=== PATIENT | male | born 1955 | race Caucasian/White ===

== ENCOUNTER → 2018-04-02 15:44 | Outpatient (CLI) | payer OTHER, SELFPAY ==
--- NOTE | 2018-04-02 16:40 | RAD_ITS ---
STUDY: X-RAY CHEST REASON FOR EXAM: Male, 63 years old. Open heart surgery 20 years ago. Shortness of breath and chest pain. TECHNIQUE: PA and lateral views of the chest. COMPARISON: August 15, 2015. FINDINGS: The lungs are mildly hypoexpanded. There is no focal mass or infiltrate. There is no demonstrated pleural abnormality. Sternal cerclage wires are present from a prior sternotomy. The heart appears normal in size. Normal mediastinum and luis. Normal visualized pulmonary arteries. Normal visualized aortic arch and descending thoracic aorta. There are diffuse degenerative changes of the visualized thoracic spine. There is a healed fracture of the left mid clavicle not seen on the prior chest film. There is no demonstrated abnormality of the visualized soft tissue structures of the upper abdomen. RAD/Chest PA and Lateral IMPRESSION: 1. Evidence of prior median sternotomy. There is no acute cardiopulmonary changes. 2. Healed left clavicular fracture. Electronically Signed: Christ Villagomez DO at 23:54 EST Tel [phone], Service support ,
[2018-04-02 16:42] LABS: BNP,B-Type NATRIURETIC PEPTIDE 22.2 pg/mL (0-100)
[2018-04-02 16:51] LABS: ALB/GLOB Ratio 0.8 RATIO (0.9-2.4); AST(SGOT) 28 U/L (15-37); Alanine Aminotransfer ALT/SGPT 31 U/L (16-61); Albumin, Serum 3.2 g/dL (3.2-5.0); Alkaline Phosphatase 116 U/L (45-117); Anion Gap 10 (5-15); BUN 7 mg/dL (7-18); BUN/Creat Ratio 8.4 RATIO (10-20); Calcium,Total 8.4 mg/dL (8.5-10.1); Chloride 112 mmol/L (98-107); Creatinine, Serum 0.84 mg/dL (0.70-1.30); EST Glomerular Filtration Rate 99 mL/min (>60); Est Glom Filt Rate - Afr Amer 120 mL/min (>60); Globulin 4.1 g/dL (2.2-4.2); Glucose 127 mg/dL (74-106); Potassium 3.7 mmol/L (3.5-5.1); Protein, Total 7.3 g/dL (6.4-8.2); Sodium Level 143 mmol/L (136-145)
== END ==
LOC: POLAB3 15:45 → RAD 16:03
PROVIDERS: Referring Provider Physician Assistant Medical; Visit Provider Physician Assistant Medical
DX: R06.09 Other forms of dyspnea (principal); R60.9 Edema, unspecified
CPT/HCPCS: 36415; 71046; 80053; 83880

== ENCOUNTER → 2018-04-14 16:49 | Outpatient (CLI) | payer OTHER, SELFPAY ==
[2018-04-14 15:48] VITALS: BMI 40.4
--- NOTE | 2018-04-14 17:00 | RAD_ITS ---
STUDY: X-RAY - LEFT RADIUS AND ULNA REASON FOR EXAM: Male, 63 years old. Bilateral forearm pain. TECHNIQUE: 2 view(s) of the forearm. COMPARISON: None. FINDINGS: There is no demonstrated soft tissue swelling. 2 numerous to count metal surgical clips are seen in the anterior soft tissues of the forearm. Normal visualized radius. Mild periarticular spurring of the coronoid process of the ulna. The mid to distal ulna are unremarkable. There is no demonstrated destructive osseous lesion or acute fracture. RAD/Forearm 2 Views IMPRESSION: 1. No acute osseous abnormality of the left radius and ulna. There is mild periventricular spurring of the coronoid process of the ulna. 2. Numerous metal surgical clips in the anterior soft tissues of the forearm. Electronically Signed: Wiley Hylton MD at 19:57 EST , Service support ,
--- NOTE | 2018-04-14 17:00 | RAD_ITS ---
STUDY: X-RAY - RIGHT RADIUS AND ULNA REASON FOR EXAM: Male, 63 years old. Bilateral forearm pain. TECHNIQUE: 2 view(s) of the forearm. COMPARISON: None. FINDINGS: There is no demonstrated soft tissue swelling. Normal visualized radius. Normal visualized ulna. There is no demonstrated destructive osseous lesion or acute fracture. RAD/Forearm 2 Views IMPRESSION: Normal x-ray examination of the right radius and ulna. Electronically Signed: Wiley Hylton MD at 19:56 EST , Service support ,
[2018-04-14 17:54] LABS: Anion Gap 10 (5-15); BUN 8 mg/dL (7-18); BUN/Creat Ratio 7.4 RATIO (10-20); Calcium,Total 8.4 mg/dL (8.5-10.1); Chloride 109 mmol/L (98-107); Creatinine, Serum 1.08 mg/dL (0.70-1.30); EST Glomerular Filtration Rate 74 mL/min (>60); Est Glom Filt Rate - Afr Amer 89 mL/min (>60); Glucose 225 mg/dL (74-106); Potassium 3.9 mmol/L (3.5-5.1); Sodium Level 142 mmol/L (136-145)
== END ==
LOC: POLAB3 16:50 → RAD 16:58
PROVIDERS: Referring Provider Physician Assistant Medical; Visit Provider Physician Assistant Medical
DX: I50.30 Unspecified diastolic (congestive) heart failure (principal); E78.5 Hyperlipidemia, unspecified; I10 Essential (primary) hypertension; I25.10 Atherosclerotic heart disease of native coronary artery without angina pectoris; M79.632 Pain in left forearm; M79.631 Pain in right forearm
CPT/HCPCS: 36415; 73090; 80048

== ENCOUNTER → 2018-06-19 14:41 | Outpatient (CLI) | payer MEDICARE, SELFPAY ==
[2018-04-14 15:48] VITALS: BMI 40.4
[2018-06-19 15:39] LABS: Hemoglobin A1c 6.8 % (4.2-6.3)
== END ==
PROVIDERS: Referring Provider Podiatrist Foot & Ankle Surgery; Visit Provider Podiatrist Foot & Ankle Surgery
DX: E11.621 Type 2 diabetes mellitus with foot ulcer (principal)
CPT/HCPCS: 36415; 83036

== ENCOUNTER → 2018-07-15 15:44 | Outpatient (CLI) | payer OTHER, SELFPAY ==
[2018-07-15 13:38] VITALS: BMI 40.4
[2018-07-15 17:49] LABS: Anion Gap 11 (5-15); BUN 8 mg/dL (7-18); BUN/Creat Ratio 8.4 RATIO (10-20); Calcium,Total 8.8 mg/dL (8.5-10.1); Chloride 111 mmol/L (98-107); Creatinine, Serum 0.95 mg/dL (0.70-1.30); EST Glomerular Filtration Rate 85 mL/min (>60); Est Glom Filt Rate - Afr Amer 103 mL/min (>60); Glucose 142 mg/dL (74-106); Potassium 4.1 mmol/L (3.5-5.1); Sodium Level 142 mmol/L (136-145)
== END ==
PROVIDERS: Visit Provider Physician Assistant Medical
DX: I10 Essential (primary) hypertension (principal); I25.10 Atherosclerotic heart disease of native coronary artery without angina pectoris; I50.30 Unspecified diastolic (congestive) heart failure
CPT/HCPCS: 36415; 80048

== ENCOUNTER → 2018-07-24 14:57 | Outpatient (CLI) | payer OTHER, SELFPAY ==
[2018-07-15 13:38] VITALS: BMI 40.4
== END ==
PROVIDERS: Family Provider Family Medicine; PCP Family Medicine; Visit Provider Family Medicine
DX: L97.322 Non-pressure chronic ulcer of left ankle with fat layer exposed (principal); L03.119 Cellulitis of unspecified part of limb; L02.619 Cutaneous abscess of unspecified foot
CPT/HCPCS: 87070; 87075; 87077; 87186; 87205

== ENCOUNTER → 2018-11-06 10:09 | Outpatient (CLI) | payer OTHER, SELFPAY ==
[2018-07-15 13:38] VITALS: BMI 40.4
[2018-11-06 12:07] LABS: Hemoglobin 14.6 g/dl (13.0-16.5); Mean Corpuscular Volume 85.3 fL (80-94); Mean Platelet Vol. 10.9 fl (6.2-12.0); Platelet Count 171 K/mm3 (150-450); RBC Distribution Width CV 13.7 % (11.6-14.6); Red Blood Count 5.04 M/mm3 (4.6-6.2); White Blood Count 8.8 K/mm3 (4.4-11.0)
[2018-11-06 12:19] LABS: Scan Indicated on CBC? Y/N NO
[2018-11-06 12:36] LABS: AST(SGOT) 17 U/L (15-37); Alanine Aminotransfer ALT/SGPT 20 U/L (16-61); Albumin, Serum 3.2 g/dL (3.2-5.0); Alkaline Phosphatase 102 U/L (45-117); Anion Gap 10 (5-15); BUN 7 mg/dL (7-18); BUN/Creat Ratio 8.7 RATIO (10-20); Bilirubin, Direct 0.07 mg/dL (0.00-0.30); Calcium,Total 8.7 mg/dL (8.5-10.1); Chloride 113 mmol/L (98-107); EST Glomerular Filtration Rate 104 mL/min (>60); Est Glom Filt Rate - Afr Amer 126 mL/min (>60); Globulin 4.1 g/dL (2.2-4.2); Glucose 98 mg/dL (74-106); Potassium 3.5 mmol/L (3.5-5.1); Protein, Total 7.3 g/dL (6.4-8.2); Sodium Level 146 mmol/L (136-145)
== END ==
PROVIDERS: Family Provider Family Medicine; PCP Family Medicine
DX: F32.9 Major depressive disorder, single episode, unspecified (principal); G43.711 Chronic migraine without aura, intractable, with status migrainosus; Z92.29 Personal history of other drug therapy
CPT/HCPCS: 36415; 80048; 80076; 85027

== ENCOUNTER → 2018-11-26 17:32 | Outpatient (CLI) | payer OTHER, SELFPAY ==
[2018-07-15 13:38] VITALS: BMI 40.4
== END ==
PROVIDERS: Family Provider Family Medicine; PCP Family Medicine; Referring Provider Family Medicine; Visit Provider Family Medicine
DX: E11.621 Type 2 diabetes mellitus with foot ulcer (principal); L97.529 Non-pressure chronic ulcer of other part of left foot with unspecified severity
CPT/HCPCS: 87070; 87075; 87205

== ENCOUNTER → 2019-05-13 13:10 | Outpatient (CLI) | payer OTHER, SELFPAY ==
[2019-03-11 15:47] VITALS: BMI 36.6
[2019-05-13 14:32] LABS: AST(SGOT) 24 U/L (15-37); Alanine Aminotransfer ALT/SGPT 26 U/L (16-61); Albumin, Serum 3.6 g/dL (3.2-5.0); Alkaline Phosphatase 110 U/L (45-117); Bilirubin, Direct 0.11 mg/dL (0.00-0.30); Cholesterol 140 mg/dL (200); Globulin 3.9 g/dL (2.2-4.2); High Density Lipoprotein 39 mg/dL; Protein, Total 7.5 g/dL (6.4-8.2); Thyroid Stim Hormone (TSH) 2.08 uIU/mL (0.358-3.74); Triglycerides 395 mg/dL; Very Low Density Lipoprotein 79 mg/dL (5-40)
== END ==
PROVIDERS: Family Provider Family Medicine; PCP Family Medicine
DX: I25.10 Atherosclerotic heart disease of native coronary artery without angina pectoris (principal); F32.9 Major depressive disorder, single episode, unspecified; F51.01 Primary insomnia; Z86.73 Personal history of transient ischemic attack (TIA), and cerebral infarction without residual deficits; Z92.29 Personal history of other drug therapy; F29 Unspecified psychosis not due to a substance or known physiological condition
CPT/HCPCS: 36415; 80061; 80076; 84443

== ENCOUNTER → 2019-12-09 14:14 | Outpatient (CLI) | payer OTHER, SELFPAY ==
[2019-03-11 15:47] VITALS: BMI 36.6
[2019-12-09 17:13] LABS: Absolute Lymphocyte Count 2.81 X10^3/uL (0.83-4.51); Absolute Neutrophil Count 5.8 X10^3/uL (2.0-7.7); Basophil# 0.05 X10^3/uL; Basophil% 0.5 % (0-1); Eosinophils% 2.1 % (0-5); Hematocrit 44.2 % (40-54); Hemoglobin 15.1 g/dL (13.0-16.5); Lymphocyte # 2.81 X10^3/ul (4.0); Lymphocyte % 29.4 % (19-41); Mean Corp Hgb Conc 34.2 g/dL (32-36); Mean Corpuscular Hgb 30.1 pg (27.0-32.0); Mean Corpuscular Volume 88.2 fL (80-94); Mean Platelet Vol. 11.4 fl (6.2-12.0); Monocyte# 0.68 X10^3/uL; Monocyte% 7.1 % (0-10); NRBC Flagged by Analyzer 0 % (0-5); Neutrophil # 5.79 X10^3/uL (2.7-7.7); Neutrophil % 60.6 % (47-70); POSITIVE COUNT YES; Platelet Count 153 K/mm3 (150-450); RBC Distribution Width SD 41.6 fl (35.1-43.9); Red Blood Count 5.01 M/mm3 (4.6-6.2); White Blood Count 9.6 K/mm3 (4.4-11.0)
[2019-12-09 17:23] LABS: Differential Indicated SCAN CRITERIA MET
[2019-12-09 17:47] LABS: ALB/GLOB Ratio 0.9 RATIO (0.9-2.4); AST(SGOT) 19 U/L (15-37); Alanine Aminotransfer ALT/SGPT 26 U/L (16-61); Albumin, Serum 3.4 g/dL (3.2-5.0); Alkaline Phosphatase 99 U/L (45-117); Anion Gap 7 (5-15); BUN 8 mg/dL (7-18); BUN/Creat Ratio 10.5 RATIO (10-20); Calcium,Total 8.5 mg/dL (8.5-10.1); Chloride 114 mmol/L (98-107); Creatinine, Serum 0.76 mg/dL (0.70-1.30); EST Glomerular Filtration Rate 110 mL/min (>60); Est Glom Filt Rate - Afr Amer 133 mL/min (>60); Globulin 3.9 g/dL (2.2-4.2); Glucose 82 mg/dL (74-106); Potassium 4.2 mmol/L (3.5-5.1); Protein, Total 7.3 g/dL (6.4-8.2); Sodium Level 141 mmol/L (136-145)
[2019-12-09 18:15] LABS: Platelet Estimate ADEQUATE (ADEQ)
[2019-12-09 18:16] LABS: Red Cell Morphology NORM C+C NORMAL (NORM C&C)
== END ==
PROVIDERS: PCP Family Medicine; Visit Provider Family Medicine
DX: Z51.81 Encounter for therapeutic drug level monitoring (principal); E11.9 Type 2 diabetes mellitus without complications
CPT/HCPCS: 36415; 80053; 85025

== ENCOUNTER → 2020-02-23 10:52 | Outpatient (CLI) | payer OTHER, SELFPAY ==
[2019-12-17 15:42] VITALS: BMI 34.5
== END ==
PROVIDERS: PCP Family Medicine; Visit Provider Family Medicine
DX: L02.414 Cutaneous abscess of left upper limb (principal)
CPT/HCPCS: 87070; 87205

== ENCOUNTER → 2020-05-11 13:28 | Outpatient (CLI) | payer OTHER, SELFPAY ==
[2019-12-17 15:42] VITALS: BMI 34.5
== END ==
PROVIDERS: PCP Family Medicine; Visit Provider Family Medicine
DX: L02.414 Cutaneous abscess of left upper limb (principal)
CPT/HCPCS: 87070; 87075; 87077; 87186; 87205

== ENCOUNTER 2020-07-19 11:00 | Outpatient (RCR) | payer OTHER, SELFPAY ==
[2020-06-10 13:25] VITALS: BMI 35.9
[2020-06-28 09:15] VITALS: BP 134/71; PULSE 97; RESP 18; TEMP 36.3; BMI 34.4
--- NOTE | 2020-06-28 10:05 | PCM.WC.HP ---
(1) COPD (chronic obstructive pulmonary disease) Status: Chronic Code(s): J44.9 - Chronic obstructive pulmonary disease, unspecified (2) History of CVA (cerebrovascular accident) Status: Chronic Code(s): Z86.73 - Personal history of transient ischemic attack (TIA), and cerebral infarction without residual deficits (3) Degenerative disc disease Status: Chronic (4) GERD (gastroesophageal reflux disease) Status: Chronic Code(s): K21.9 - Gastro-esophageal reflux disease without esophagitis (5) Diabetes mellitus Status: Chronic Qualifiers: Diabetes mellitus type: type 2 Code(s): E11.9 - Type 2 diabetes mellitus without complications (6) Wound, open, elbow Status: Chronic Qualifiers: Encounter type: initial encounter Laterality: left Qualified Code(s): S51.002A - Unspecified open wound of left elbow, initial encounter Code(s): S51.009A - Unspecified open wound of unspecified elbow, initial encounter (7) Open wnd elbow-complic Status: Chronic Qualifiers: Encounter type: initial encounter Laterality: left Qualified Code(s): S51.002A - Unspecified open wound of left elbow, initial encounter Code(s): S51.009A - Unspecified open wound of unspecified elbow, initial encounter (8) Chronic diastolic heart failure Status: Chronic Code(s): I50.32 - Chronic diastolic (congestive) heart failure (9) Pure hypercholesterolemia Status: Chronic Code(s): E78.00 - Pure hypercholesterolemia, unspecified (10) Essential hypertension Status: Chronic Code(s): I10 - Essential (primary) hypertension (11) Presence of stent in coronary artery Status: Chronic Code(s): Z95.5 - Presence of coronary angioplasty implant and graft Comment: PTCA /Stent of prox and mid LAD 08/11/02 (12) Aortocoronary bypass status Status: Chronic Code(s): Z95.1 - Presence of aortocoronary bypass graft Comment: CABG x3- BULL to LAD and to DX of LAD, Lt Radial to RCA 10/06/1998 @ [facility] (13) Atherosclerotic heart disease of [place] coronary artery without angina pectoris Status: Chronic Qualifiers: [place] vs. transplanted heart: [place] heart Code(s): I25.10 - Atherosclerotic heart disease of [place] coronary artery without angina pectoris Comment: CABG x3- BULL to LAD and to DX of LAD, Lt Radial to RCA 10/06/1998 @ [facility]; PTCA /Stent of prox and mid LAD 08/11/02 History of Present Illness Date of Service: 06/28/20 Chief Complaint: Left elbow wound History of Wound: This is a 65-year-old male who presents with a chronic wound on his left posterior elbow. Currently the patient, it has been present since approximately October 2019. He is uncertain as to the etiology or source of the wound, indicating that it may have started as an insect bite, and was initially noted to have the appearance of a blister. He has been treated by other physicians, including Dr. Raoul Ortez, who referred the patient, and Dr. Epperson, the patient's primary care physician. Apparently there have been episodes of redness and swelling, for which the patient has been placed on several courses of oral antibiotics, including Cipro and others. The patient has not certain of the attics which he has taken in the past. He is currently treating the area with soap and water. He has previously been advised to use Silvadene topically, as well as antibiotic ointment. Despite all such measures, the patient's left elbow wound has failed to heal, prompting referral to our wound care facility. Patient has multiple pre-existing medical problems, including hypertension, coronary artery disease, diabetes mellitus, etc., which are listed below. Past Medical History Past Medical History: Chronic Problems (Last Reviewed 06/10/20 @ 13:[address] Raoul Ortez MD) COPD (chronic obstructive pulmonary disease) (Chronic) History of CVA (cerebrovascular accident) (Chronic) Degenerative disc disease (Chronic) GERD (gastroesophageal reflux disease) (Chronic) Diabetes mellitus (Chronic) Wound, open, elbow (Chronic) Open wnd elbow-complic (Chronic) Chronic diastolic heart failure (Chronic) Pure hypercholesterolemia (Chronic) Essential hypertension (Chronic) Presence of stent in coronary artery (Chronic ~08/11/02) PTCA /Stent of prox and mid LAD 08/11/02 Aortocoronary bypass status (Chronic ~1998) CABG x3- BULL to LAD and to DX of LAD, Lt Radial to RCA 10/06/1998 @ [facility] Atherosclerotic heart disease of [place] coronary artery without angina pectoris (Chronic) CABG x3- BULL to LAD and to DX of LAD, Lt Radial to RCA 10/06/1998 @ [facility]; PTCA /Stent of prox and mid LAD 08/11/02 Past Medical History: Patient has a history of chronic diastolic heart failure, hyperlipidemia, hypertension, coronary artery disease, chronic obstructive pulmonary disease, cerebrovascular accident, degenerative disc disease, gastroesophageal reflux disease, and diabetes mellitus. Surgical History: - - The patient underwent coronary artery bypass surgery in 1998. Three coronary artery stents were placed in 2002. Patient has history of cholecystectomy and hernia repair. Allergies/Adverse Reactions: Allergies clindamycin Adverse Reaction (Unknown, Verified 06/10/20 13:26) Unknown doxepin Adverse Reaction (Verified 06/10/20 13:26) Nausea/Vom/Diarrhea guanfacine Adverse Reaction (Verified 06/10/20 13:) Nausea/Vom/Diarrhea Penicillins Adverse Reaction (Verified 06/10/20 13:) Hives Home Medications: Ambulatory Orders Medication Instructions Recorded Duloxetine Hcl [Cymbalta] 60 mg PO BID 08/15/15 Hydromorphone HCl [Dilaudid] 4 mg PO Q6H PRN PRN 08/15/15 Lorazepam [Ativan] 1 mg PO TID PRN PRN 08/15/15 Multivitamins,Ther W-Minerals 1 tab PO DAILY 08/15/15 [Multivitamin With Minerals ([facility])] Niacin [Niacin ER] 500 mg PO QHS 08/15/15 Omeprazole [Prilosec] 20 mg PO DAILY 08/15/15 aspirin 81 mg tablet,delayed 81 mg PO QDAY 06/24/17 release folic acid 1 mg tablet 1 mg PO QDAY 06/24/17 pregabalin 100 mg capsule 100 mg PO BID 06/24/17 quetiapine 100 mg tablet 200 mg PO QHS tab 06/24/17 vitamin B complex 1 tab PO QDAY 06/24/17 melatonin 3 mg tablet 9 mg PO HS PRN tab 02/27/18 topiramate 50 mg tablet 300 mg PO BID tab 02/27/18 oxybutynin chloride 5 mg tablet 15 mg PO QHS tab 07/15/18 erenumab-aooe 70 mg/mL 140 mg SC QMONTH 30 Days #2 ea 03/11/19 subcutaneous auto-injector clopidogrel 75 mg tablet 75 mg PO DAILY #90 tab 07/23/19 metoprolol succinate 50 mg 50 mg PO QDAY #90 tab 07/23/19 tablet,extended release 24 hr potassium chloride 10 mEq 40 meq PO BID #240 cap 07/30/19 capsule,extended release pravastatin 80 mg tablet 40 mg PO DAILY #45 tab 08/12/19 nitroglycerin 0.4 mg sublingual 0.4 mg SUBLINGUAL Q5M PRN #25 tab 12/17/19 tablet Temazepam 15 mg PO QHS PRN PRN 06/28/20 - Family History Paternal Family History: Family History (Last Reviewed 06/10/20 @ 13:[address] Raoul Ortez MD) Father Heart disease Maternal Family History: Family History (Last Reviewed 06/10/20 @ 13:[address] Raoul Ortez MD) Father Heart disease - - The patient's mother at the age of 63 with a history of brain cancer Social History: The patient is , and lives with his . He denies use of alcohol and tobacco products. 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 Lives: Spouse/ Significant Other Smoking Status: Never smoker Tobacco Use: Non-smoker Alcohol: None Drugs: None Review of Systems Constitutional: Denies: Chills, Fever, Weight Change Eyes: Denies: Pain, Vision Change HEENT: Denies: Difficulty Hearing, Difficulty Swallowing, Sinus Congestion Cardiovascular: Denies: Chest Pain, Palpitations Respiratory: Denies: Cough, Shortness of Breath Gastrointestinal: Denies: Diarrhea, Nausea, Vomiting Genitourinary: Denies: Dysuria, Hematuria Endocrine: Denies: Heat/ Cold Intolerance, Polydipsia, Polyuria Hematologic/ Lymphatic: Denies: Easy Bruising, Easy Bleeding - Physical Exam Vital Signs Temp Pulse Resp BP 97.3 F L 97 18 134/71 H 06/28/20 09:15 06/28/20 09:15 06/28/20 09:15 06/28/20 09:15 General: Alert, Oriented x3, Cooperative, No apparent distress, Well developed, Well nourished HEENT: Atraumatic, PERRLA, EOMI, Normocephalic Oral: Moist Mucosa Neck: No JVD Lungs: Normal air movement Abdomen: Non-Distended Extremities: No clubbing, No cyanosis, No edema, No Calf Tenderness, - Addt'l Wound Findings: A small wound is noted on the posterior aspect of the patient's left elbow. It is relatively small in size. The external opening measures approximately 2 mm in diameter. It is approximately 2 mm in depth. There is very minimal undermining. Surrounding skin is somewhat thickened. There is no drainage evident at this time. There is no sign of infection or cellulitis. There is a small amount of bioburden. Skin: No rashes Wound Measurements and Assessment WC - Nurse 1 - General Ulcer Measurement Start: 06/28/20 09:15 Freq: Status: Active Protocol: Activity Type Activity Date Activity User E-Sign Co-Sign Detail Recorded Client Recorded Date Recorded By Document 06/28/20 09:15 MW [id number] 06/28/20 09:27 MW 06/28/20 09:15 Wound Center Nurse 1 [Ulcer Assessment] #1 left elbow -Combined with other wound No -Current Size (cm) - Length 0.3 -Current Size (cm) - Width 0.3 -Current Size (cm) - Depth 0.4 -Total Square Cm 0.09 -Date of Last Picture (Recall this 06/28/20 field) -Photo Taken Yes -Epithelialization None Present -Tunneling No -Undermining/Tunneling No -Circular Undermining No -Exudate Amt Medium -Exudate Type Serosanguineous -Wound Margin Thickened -Granulation Amt Small (1-33%) -Granulation Quality Fishtail -Slough/Fibrin Yes -Necrosis Amt Small (1-33%) -Necrotic Tissue Type Adherent Slough -Structure Exposed N/A -Texture (Kiana-wound Skin Appearance) Assessed, Localized Edema -Moisture (Kiana-wound Skin Appearance No Abnormality, ) Assessed -Color (Kiana-wound Skin Appearance) Assessed, Erythema -Temperature (Kiana-wound Skin No Abnormality Appearance) (Pt Warm) -Tenderness on Palpation (Kiana-wound Yes Skin Appearance) -Ulcer Cleansing Rinsed/ Irrigated with Saline -Foul Odor after Cleansing No -Anesthetic Used 4% Lidocaine Solution [Edema Assessment] -Lower Limb Edema Present No Musculoskeletal: No Muscle Wasting Neurological: Cranial nerves II-XII grossly intact, Neuro grossly intact Psych/Mental Status: Appropriate, - - Flat affect is noted, Alert and oriented to time, place, person, mood and affect Debridement Note Laterality: Left - Posterior elbow Type of Debridement: Excisional debridement Anesthesia Used: 5% Lidocaine Gel Depth: Down to and including healthy tissue, in the subcutaneous layer Percentage of wound debrided: 100 Instrument Used: 3mm curette Tissue Removed: Bioburden Severity: Fat Layer Exposed Amount of bleeding with debridement: Mild Bleeding Controlled with: Compression and gauze Patient tolerated procedure well Assessment/Plan Assessment: This is a 65-year-old male who presents with a chronic wound on the left posterior elbow. It has been present for more than 6 months. Patient has multiple pre-existing medical problems, which are detailed elsewhere within this document. Plan: We are to obtain routine diagnostic studies, including a CBC, comprehensive metabolic profile, hemoglobin A1c, and a serum prealbumin. These laboratory studies will reveal whether the patient has underlying systemic factors with active wound healing. An x-ray of the left elbow will also be obtained, to assess the possible involvement of underlying structures. This is not highly suspected, however. Patient has been advised to implement offloading measures, to avoid pressure and friction to the area involved. We are to initiate care with packing of the wound using Nu Gauze. The patient and his are to be instructed in the appropriate means of packing, which will be performed on a daily basis. The wound cavity is extremely small, and measures have been described to facilitate the gauze packing remaining in place, and in contact with all portions of the wound cavity. The importance of this measure has been discussed with the patient and his . Patient is to return in 1 week for reassessment. It is anticipated that serial mechanical debridements will be of benefit in the management of this chronic, nonhealing wound. Influenza vaccine was not administered today. The patient is not a smoker. The patient weighs 240 pounds. He stands 5 feet 10 inches tall. His BMI is 34.4, which places him in an obese class I category. Weight loss has been recommended, in collaboration with his primary care physician has been advised. Total time: 55 minutes.
--- NOTE | 2020-06-28 10:33 | RAD_ITS ---
STUDY: X-RAY - LEFT ELBOW REASON FOR EXAM: Male, 65 years old. Non healing wound to posterior-lateral elbow -- since November TECHNIQUE: 4 view(s) of the elbow. COMPARISON: None. FINDINGS: Normal visualized humerus, radius and ulna. Normal radiocapitellar and ulnotrochlear articulations. Multiple surgical clips are seen in the soft tissues along the anterior aspect of the proximal forearm. RAD/Elbow min 3 Views IMPRESSION: Normal x-ray examination of the elbow. Electronically Signed: Garfield Oliver MD at 11:15 EST , Service support ,
[2020-06-28 11:22] LABS: Absolute Lymphocyte Count 4.65 X10^3/uL (0.83-4.51); Absolute Neutrophil Count 5.6 X10^3/uL (2.0-7.7); Basophil# 0.05 X10^3/uL; Basophil% 0.4 % (0-1); Eosinophil# 0.29 X10^3/uL; Eosinophils% 2.5 % (0-5); Hematocrit 49.2 % (40-54); Hemoglobin 16.3 g/dL (13.0-16.5); Lymphocyte # 4.65 X10^3/ul (4.0); Mean Corp Hgb Conc 33.1 g/dL (32-36); Mean Corpuscular Hgb 29.7 pg (27.0-32.0); Mean Corpuscular Volume 89.8 fL (80-94); Mean Platelet Vol. 10.9 fl (6.2-12.0); Monocyte% 8.6 % (0-10); NRBC Flagged by Analyzer 0 % (0-5); Neutrophil % 48.2 % (47-70); Platelet Count 183 K/mm3 (150-450); RBC Distribution Width CV 13.1 % (11.6-14.6); RBC Distribution Width SD 43.1 fl (35.1-43.9); Red Blood Count 5.48 M/mm3 (4.6-6.2); White Blood Count 11.6 K/mm3 (4.4-11.0)
[2020-06-28 11:39] LABS: Hemoglobin A1c 5.2 % (3.8-5.6)
[2020-06-28 12:02] LABS: ALB/GLOB Ratio 0.9 RATIO (0.9-2.4); AST(SGOT) 16 U/L (15-37); Alanine Aminotransfer ALT/SGPT 23 U/L (16-61); Albumin, Serum 3.5 g/dL (3.2-5.0); Alkaline Phosphatase 126 U/L (45-117); Anion Gap 10 (5-15); BUN 6 mg/dL (7-18); BUN/Creat Ratio 6.2 RATIO (10-20); Calcium,Total 8.9 mg/dL (8.5-10.1); Chloride 113 mmol/L (98-107); Creatinine, Serum 0.98 mg/dL (0.70-1.30); EST Glomerular Filtration Rate 83 mL/min (>60); Est Glom Filt Rate - Afr Amer 100 mL/min (>60); Estimated Creatinine Clearance 79.66 ml/min; Globulin 4.1 g/dL (2.2-4.2); Glucose 103 mg/dL (74-106); Potassium 3.4 mmol/L (3.5-5.1); Prealbumin 30.6 mg/dL (20.0-40.0); Protein, Total 7.6 g/dL (6.4-8.2); Sodium Level 143 mmol/L (136-145)
[2020-07-05 11:49] VITALS: BP 141/85; PULSE 78; RESP 18; TEMP 36; BMI 34.4
--- NOTE | 2020-07-05 12:39 | PCM.WC.HP ---
(1) COPD (chronic obstructive pulmonary disease) Status: Chronic Code(s): J44.9 - Chronic obstructive pulmonary disease, unspecified (2) History of CVA (cerebrovascular accident) Status: Chronic Code(s): Z86.73 - Personal history of transient ischemic attack (TIA), and cerebral infarction without residual deficits (3) Degenerative disc disease Status: Chronic (4) GERD (gastroesophageal reflux disease) Status: Chronic Code(s): K21.9 - Gastro-esophageal reflux disease without esophagitis (5) Diabetes mellitus Status: Chronic Qualifiers: Diabetes mellitus type: type 2 Code(s): E11.9 - Type 2 diabetes mellitus without complications (6) Wound, open, elbow Status: Chronic Qualifiers: Encounter type: subsequent encounter Laterality: left Qualified Code(s): S51.002D - Unspecified open wound of left elbow, subsequent encounter Code(s): S51.009A - Unspecified open wound of unspecified elbow, initial encounter (7) Open wnd elbow-complic Status: Chronic Qualifiers: Encounter type: subsequent encounter Laterality: left Qualified Code(s): S51.002D - Unspecified open wound of left elbow, subsequent encounter Code(s): S51.009A - Unspecified open wound of unspecified elbow, initial encounter (8) Chronic diastolic heart failure Status: Chronic Code(s): I50.32 - Chronic diastolic (congestive) heart failure (9) Pure hypercholesterolemia Status: Chronic Code(s): E78.00 - Pure hypercholesterolemia, unspecified (10) Essential hypertension Status: Chronic Code(s): I10 - Essential (primary) hypertension (11) Presence of stent in coronary artery Status: Chronic Code(s): Z95.5 - Presence of coronary angioplasty implant and graft Comment: PTCA /Stent of prox and mid LAD 08/11/02 (12) Aortocoronary bypass status Status: Chronic Code(s): Z95.1 - Presence of aortocoronary bypass graft Comment: CABG x3- BULL to LAD and to DX of LAD, Lt Radial to RCA 10/06/1998 @ [facility] (13) Atherosclerotic heart disease of [place] coronary artery without angina pectoris Status: Chronic Qualifiers: [place]igh[place] vs. transplanted heart: [place] heart Code(s): I25.10 - Atherosclerotic heart disease of [place] coronary artery without angina pectoris Comment: CABG x3- BULL to LAD and to DX of LAD, Lt Radial to RCA 10/06/1998 @ [facility]; PTCA /Stent of prox and mid LAD 08/11/02 History of Present Illness Date of Service: 07/05/20 Chief Complaint: Left elbow wound History of Wound: This is a 65-year-old male who presented with a chronic wound on his left posterior elbow. It has been present since approximately October 2019. He is uncertain as to the etiology or source of the wound, indicating that it may have started as an insect bite, and was initially noted to have the appearance of a blister. He has been treated by other physicians, including Dr. Raoul Ortez, who referred the patient, and Dr. Epperson, the patient's primary care physician. Apparently there have been episodes of redness and swelling, for which the patient has been placed on several courses of oral antibiotics, including Cipro and others. The patient has not certain of the attics which he has taken in the past. He is currently treating the area with soap and water. He has previously been advised to use Silvadene topically, as well as antibiotic ointment. Despite all such measures, the patient's left elbow wound has failed to heal, prompting referral to our wound care facility. The patient has multiple pre-existing medical problems, including hypertension, coronary artery disease, diabetes mellitus, etc., which are listed below. Past Medical History Past Medical History: Chronic Problems (Last Reviewed 06/10/20 @ 13:[address] Raoul Ortez MD) COPD (chronic obstructive pulmonary disease) (Chronic) History of CVA (cerebrovascular accident) (Chronic) Degenerative disc disease (Chronic) GERD (gastroesophageal reflux disease) (Chronic) Diabetes mellitus (Chronic) Wound, open, elbow (Chronic) Open wnd elbow-complic (Chronic) Chronic diastolic heart failure (Chronic) Pure hypercholesterolemia (Chronic) Essential hypertension (Chronic) Presence of stent in coronary artery (Chronic ~08/11/02) PTCA /Stent of prox and mid LAD 08/11/02 Aortocoronary bypass status (Chronic ~1998) CABG x3- BULL to LAD and to DX of LAD, Lt Radial to RCA 10/06/1998 @ [facility] Atherosclerotic heart disease of [place] coronary artery without angina pectoris (Chronic) CABG x3- BULL to LAD and to DX of LAD, Lt Radial to RCA 10/06/1998 @ [facility]; PTCA /Stent of prox and mid LAD 08/11/02 Surgical History: - - The patient underwent coronary artery bypass surgery in 1998. Three coronary artery stents were placed in 2002. Patient has history of cholecystectomy and hernia repair. Allergies/Adverse Reactions: Allergies clindamycin Adverse Reaction (Unknown, Verified 06/10/20 13:26) Unknown doxepin Adverse Reaction (Verified 06/10/20 13:26) Nausea/Vom/Diarrhea guanfacine Adverse Reaction (Verified 06/10/20 13:26) Nausea/Vom/Diarrhea Penicillins Adverse Reaction (Verified 06/10/20 13:26) Hives Home Medications: Ambulatory Orders Medication Instructions Recorded Duloxetine Hcl [Cymbalta] 60 mg PO BID 08/15/15 Hydromorphone HCl [Dilaudid] 4 mg PO Q6H PRN PRN 08/15/15 Lorazepam [Ativan] 1 mg PO TID PRN PRN 08/15/15 Multivitamins,Ther W-Minerals 1 tab PO DAILY 08/15/15 [Multivitamin With Minerals ([facility])] Niacin [Niacin ER] 500 mg PO QHS 08/15/15 Omeprazole [Prilosec] 20 mg PO DAILY 08/15/15 aspirin 81 mg tablet,delayed 81 mg PO QDAY 06/24/17 release folic acid 1 mg tablet 1 mg PO QDAY 06/24/17 pregabalin 100 mg capsule 100 mg PO BID 06/24/17 quetiapine 100 mg tablet 200 mg PO QHS tab 06/24/17 vitamin B complex 1 tab PO QDAY 06/24/17 melatonin 3 mg tablet 9 mg PO HS PRN tab 02/27/18 topiramate 50 mg tablet 300 mg PO BID tab 02/27/18 oxybutynin chloride 5 mg tablet 15 mg PO QHS tab 07/15/18 erenumab-aooe 70 mg/mL 140 mg SC QMONTH 30 Days #2 ea 03/11/19 subcutaneous auto-injector clopidogrel 75 mg tablet 75 mg PO DAILY #90 tab 07/23/19 metoprolol succinate 50 mg 50 mg PO QDAY #90 tab 07/23/19 tablet,extended release 24 hr potassium chloride 10 mEq 40 meq PO BID #240 cap 07/30/19 capsule,extended release pravastatin 80 mg tablet 40 mg PO DAILY #45 tab 08/12/19 nitroglycerin 0.4 mg sublingual 0.4 mg SUBLINGUAL Q5M PRN #25 tab 12/17/19 tablet Temazepam 15 mg PO QHS PRN PRN 06/28/20 - Family History Paternal Family History: Family History (Last Reviewed 06/10/20 @ 13:[address] Raoul Ortez MD) Father Heart disease Maternal Family History: Family History (Last Reviewed 06/10/20 @ 13:[address] Raoul Ortez MD) Father Heart disease - - The patient's mother at the age of 63 with a history of brain cancer Lives: Spouse/ Significant Other Smoking Status: Never smoker Tobacco Use: Non-smoker Alcohol: None Drugs: None Review of Systems Constitutional: Denies: Chills, Fever, Weight Change Eyes: Denies: Pain, Vision Change HEENT: Denies: Difficulty Hearing, Difficulty Swallowing, Sinus Congestion Cardiovascular: Denies: Chest Pain, Palpitations Respiratory: Denies: Cough, Shortness of Breath Gastrointestinal: Denies: Diarrhea, Nausea, Vomiting Genitourinary: Denies: Dysuria, Hematuria Endocrine: Denies: Heat/ Cold Intolerance, Polydipsia, Polyuria Hematologic/ Lymphatic: Denies: Easy Bruising, Easy Bleeding - Physical Exam Vital Signs Temp Pulse Resp BP 96.8 F L 78 18 141/85 H 07/05/20 11:49 07/05/20 11:49 07/05/20 11:49 07/05/20 11:49 General: Alert, Oriented x3, Cooperative, No apparent distress, Well developed, Well nourished HEENT: Atraumatic, PERRLA, EOMI, Normocephalic Oral: Moist Mucosa Neck: No JVD Lungs: Normal air movement Abdomen: Non-Distended Extremities: No clubbing, No cyanosis, No edema, No Calf Tenderness Addt'l Wound Findings: The open wound on the left posterior elbow persists. Dimensions are documented elsewhere. It is a somewhat punched out wound, with poorly beveled margins. There is no sign of infection or cellulitis. There is a small amount of bioburden. Skin: No rashes Wound Measurements and Assessment WC - Nurse 1 - General Ulcer Measurement Start: 06/28/20 09:15 Freq: Status: Active Protocol: Activity Type Activity Date Activity User E-Sign Co-Sign Detail Recorded Client Recorded Date Recorded By Document 07/05/20 11:49 [facility] [id number] 07/05/20 11:56 [facility] 07/05/20 11:49 Wound Center Nurse 1 [Ulcer Assessment] #1 left elbow -Combined with other wound No -Current Size (cm) - Length 0.4 -Current Size (cm) - Width 0.4 -Current Size (cm) - Depth 0.3 -Total Square Cm 0.16 -Photo Taken No -Epithelialization None Present -Tunneling No -Undermining/Tunneling No -Circular Undermining No -Exudate Amt Small -Exudate Type Serosanguineous -Wound Margin Distinct, Outline Attached -Granulation Amt Medium (34-66%) -Granulation Quality Red -Slough/Fibrin Yes -Necrosis Amt Medium (34-66%) -Necrotic Tissue Type Adherent Slough -Texture (Kiana-wound Skin Appearance) Assessed, Localized Edema ,Scarring -Moisture (Kiana-wound Skin Appearance Assessed,Dry/ ) Scaly -Color (Kiana-wound Skin Appearance) Assessed, Erythema -Temperature (Kiana-wound Skin No Abnormality Appearance) (Pt Warm) -Tenderness on Palpation (Kiana-wound No Skin Appearance) -Ulcer Cleansing Rinsed/ Irrigated with Saline -Foul Odor after Cleansing No -Anesthetic Used 5% Lidocaine Gel WC - Nurse 3 - General Ulcer D/C NN Start: 06/28/20 09:15 Freq: Status: Active Protocol: Activity Type Activity Date Activity User E-Sign Co-Sign Detail Recorded Client Recorded Date Recorded By Document 07/05/20 12:21 MW [id number] 07/05/20 12:22 MW 07/05/20 12:21 Wound Care Nurse 3 [Wound Dressing] -Ulcer Cleansing Rinsed/ Irrigated with Saline -Foul Odor after Cleansing No -Negative Pressure Wound Therapy N/A -Primary Dressing Applied Nugauze, Plain Iodoform -Other Dressing 1/4 nugauze -Primary Dressing Covered/Secured Dry Gauze, with Secured with Tape -Nugauze, Plain Iodoform /4 1 [Compression Applied] LEFT ARM -Lotion applied to leg before No compression wrap -Other Refused ernesto wrap [Post Procedure Tolerated] -Treatment Response Procedure Tolerated Well Pain Scale: 0-10 Numeric [Pain] -Is Patient Pain Free? Yes Teaching: Wound Center [Wound Center Education] (Items with an * have Printed Materials Available- Please identify what is given to patient under the Teaching materials given to patient and caregiver Section. Dressing Your Wound -Person Taught Patient,Family -Teaching Method Discussion, Demonstration -Response to teaching Verbalize understanding WC - Visit Discharge [Visit Discharge Information] -Discharge Condition Stable -Ambulatory Status Ambulatory -Transportation Private Auto -Accompanied by -Medication Reconcilliation completed No & provided to patient/care provider -Clinical Summary of Care Provided Yes Musculoskeletal: No Muscle Wasting Neurological: Cranial nerves II-XII grossly intact, Neuro grossly intact Psych/Mental Status: Normal Affect, Appropriate, Alert and oriented to time, place, person, mood and affect Debridement Note Post-Debridement Measurements/Treatment WC - Nurse 2 - General Ulcer CM Notes Start: 06/28/20 09:15 Freq: Status: Active Protocol: Activity Type Activity Date Activity User E-Sign Co-Sign Detail Recorded Client Recorded Date Recorded By Document 06/28/20 11:12 PL [id number] 06/28/20 11:13 PL 06/28/20 11:12 Wound Center Nurse 2 #1 left elbow -Time 09:47 -Correct Patient Yes -Correct Side, Site, Position Yes -Correct Procedure Yes -Procedure Performed Yes -Type of Procedure Debridement -Clinical Debridement Subcutaneous -Tissue Removed Subcutaneous -Post Debridement (cm) - Length 0.3 -Post Debridement (cm) - Width 0.3 -Post Debridement (cm) - Depth 0.4 -Total Square (Post) (cm) 0.09 -Area of Debridement (cm) - Length 0.3 -Area of Debridement (cm) - Width 0.3 -Total Square (Area) (cm) 0.09 -Tunneling No -Undermining/Tunneling No -Circular Undermining No -Wound/Ulcer Outcome Not Healed -Ulcer Cleansing Rinsed/ Irrigated with Saline -Foul Odor after Cleansing No -Bioengineered Tissue No -Debridement - Subq, 1st 20sq cm Yes Pain Scale: 0-10 Numeric Is Patient Pain Free? Yes - Nurse 3 - General Ulcer D/C NN Start: 06/28/20 09:15 Freq: Status: Active Protocol: Activity Type Activity Date Activity User E-Sign Co-Sign Detail Recorded Client Recorded Date Recorded By Document 06/28/20 10:00 MW [id number] 06/28/20 11:13 MW Document 07/05/20 12:21 MW [id number] 07/05/20 12:22 MW 06/28/20 07/05/20 10:00 12:21 Wound Care Nurse 3 #1 left elbow -Ulcer Cleansing Rinsed/ Rinsed/ Irrigated with Irrigated with Saline Saline -Foul Odor after Cleansing No No -Negative Pressure Wound Therapy N/A N/A -Primary Dressing Applied Nugauze, Plain Nugauze, Plain Iodoform Iodoform -Other Dressing 05/30 nugauze -Primary Dressing Covered/Secured with Dry Gauze, Dry Gauze, Secured with Secured with Tape Tape -Nugauze, Plain Iodoform 05/30 1 1 LEFT ARM -Lotion applied to leg before No compression wrap -Compression Wrap Ernesto Wrap -Other Refused ernesto wrap Treatment Response Procedure Procedure Tolerated Well Tolerated Well Pain Scale: 0-10 Numeric Is Patient Pain Free? Yes Yes Teaching: Wound Center Dressing Your Wound -Person Taught Patient,Family Patient,Family -Teaching Method Discussion, Discussion, Demonstration Demonstration -Response to teaching Verbalize Verbalize understanding understanding WC - Visit Discharge Discharge Condition Stable Stable Ambulatory Status Ambulatory Ambulatory Transportation Private Auto Private Auto Accompanied by Medication Reconcilliation completed & No No provided to patient/care provider Clinical Summary of Care Provided Yes Yes Laterality: Left - Posterior elbow Type of Debridement: Excisional debridement Anesthesia Used: 5% Lidocaine Gel Depth: Down to and including healthy tissue, in the subcutaneous layer Percentage of wound debrided: 100 Instrument Used: 3mm curette Tissue Removed: Bioburden Severity: Fat Layer Exposed Amount of bleeding with debridement: Mild Bleeding Controlled with: Compression and gauze Patient tolerated procedure well Assessment/Plan Clinical Impression(s) from Imaging Studies Elbow X-Ray 06/28/20 10:33 IMPRESSION: Normal x-ray examination of the elbow. Electronically Signed: Garfield Oliver MD at 11:15 EST , Service support , Active Problems (Last Reviewed 06/10/20 @ 13:[address] Raoul Ortez MD) COPD (chronic obstructive pulmonary disease) (Chronic) History of CVA (cerebrovascular accident) (Chronic) Degenerative disc disease (Chronic) GERD (gastroesophageal reflux disease) (Chronic) Diabetes mellitus (Chronic) Wound, open, elbow (Chronic) Open wnd elbow-complic (Chronic) Chronic diastolic heart failure (Chronic) Pure hypercholesterolemia (Chronic) Essential hypertension (Chronic) Presence of stent in coronary artery (Chronic ~08/11/02) PTCA /Stent of prox and mid LAD 08/11/02 Aortocoronary bypass status (Chronic ~1998) CABG x3- BULL to LAD and to DX of LAD, Lt Radial to RCA 10/06/1998 @ [facility] Atherosclerotic heart disease of [place] coronary artery without angina pectoris (Chronic) CABG x3- BULL to LAD and to DX of LAD, Lt Radial to RCA 10/06/1998 @ [facility]; PTCA /Stent of prox and mid LAD 08/11/02 Assessment: This is a 65-year-old male with multiple pre-existing medical problems. He presents with a chronic wound on the left posterior elbow. It has been present for more than 6 months. Patient has undergone a battery of diagnostic studies recently, which have been discussed with the patient. An x-ray of the left elbow reveals a normal humerus, radius, and ulnar. Articulations are unremarkable. Lab results are as follows: White blood count 11.6, hemoglobin 16.3, hematocrit 49.2, platelets 183,000, hemoglobin A1c 5.2, glucose 103, BUN 6, creatinine 0.98, total protein 7.6, albumin 3.5, calcium 8.9, AST 16, alkaline phosphatase 126, ALT 23, total bilirubin 0.40, sodium 143, potassium 3.4, chloride 113, serum prealbumin 30.6. Plan: The patient has been advised to implement offloading measures, to avoid pressure and friction to the area involved. We are to continue packing of the wound using Nu Gauze. The patient and his are to be instructed in the appropriate means of packing, which will be performed on a daily basis. The wound cavity is small, and measures have been described to facilitate the gauze packing remaining in place, and in contact with all portions of the wound cavity. The importance of this measure has been discussed with the patient and his . The punched out morphology of the patient's wound is of concern, given that wound margins are not well beveled, which may be a hindrance to wound healing. This is a factor which will be determined over period of time. At present, however, the goal is to maintain a healthy wound environment, perform serial debridements, and assess the patient temporarily to determine the potential for healing. Optimization of the patient's glycemic control and nutritional intake has been advised. The patient is to return in 1 week for reassessment. It is anticipated that serial mechanical debridements will be of benefit in the management of this chronic, nonhealing wound. Influenza vaccine was not administered today. The patient is not a smoker. The patient weighs 240 pounds. He stands 5 feet 10 inches tall. His BMI is 34.4, which places him in an obese class I category. Weight loss has been recommended, in collaboration with his primary care physician has been advised. Total time: 24 minutes.
[2020-07-19 10:54] VITALS: BP 135/85; PULSE 84; RESP 16; TEMP 36.4; BMI 34.4
--- NOTE | 2020-07-19 12:29 | HP.PCM_ITS ---
(1) COPD (chronic obstructive pulmonary disease) Status: Chronic Code(s): J44.9 - Chronic obstructive pulmonary disease, u nspecified (2) History of CVA (cerebrovascular accident) Status: Chronic Code(s): Z86.73 - Personal history of transient ischemic a ttack (TIA), and cerebral infarction without residual deficits (3) Degenerative disc disease Status: Chronic (4) GERD (gastroesophageal reflux disease) Status: Chronic Code(s): K21.9 - Gastro-esophageal reflux disease without esophagitis (5) Diabetes mellitus Status: Chronic Qualifiers: Diabetes mellitus type: type 2 Code(s): E11.9 - Type 2 diabetes mellitus without complications (6) Wound, open, elbow Status: Chronic Qualifiers: Encounter type: subsequent encounter Laterality: left Qualified Code(s): S51.002D - Unspecified open wound of left elbow, subsequent encounter Code(s): S51.009A - Unspecified open wound of unspecified elbow, initial encounter (7) Open wnd elbow-complic Status: Chronic Qualifiers: Encounter type: subsequent encounter Laterality: left Qualified Code(s): S51.002D - Unspecified open wound of left elbow, subsequent encounter Code(s): S51.009A - Unspecified open wound of unspecified elbow, initial encounter (8) Chronic diastolic heart failure Status: Chronic Code(s): I50.32 - Chronic diastolic (congestive) heart failure (9) Pure hypercholesterolemia Status: Chronic Code(s): E78.00 - Pure hypercholesterolemia, unspecified (10) Essential hypertension Status: Chronic Code(s): I10 - Essential (primary) hypertension (11) Presence of stent in coronary artery Status: Chronic Code(s): Z95.5 - Presence of coronary angioplasty implant and graft Comment: PTCA /Stent of prox and mid LAD 08/11/02 (12) Aortocoronary bypass status Status: Chronic Code(s): Z95.1 - Presence of aortocoronary bypass graft Comment: CABG x3- BULL to LAD and to DX of LAD, Lt Radial to RCA 10/06/1998 @ [facility] (13) 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 It has been present since approximately October 2019. He is uncertain as to the etiology or source of the wound, indicating that it may have started as an insect bite, and was initially noted to have the appearance of a blister. He has been treated by other physicians, including Dr. Raoul Ortez, who referred the patient, and Dr. Epperson, the patient's primary care physician. Apparently there have been episodes of redness and swelling, for which the patient has been placed on several courses of oral antibiotics, including Cipro and others. The patient has not certain of the attics which he has taken in the past. He is currently treating the area with soap and water. He has previously been advised to use Silvadene topically, as well as antibiotic ointment. Despite all such measures, the patient's left elbow wound has failed to heal, prompting referral to our wound care facility. The patient has multiple pre-existing medical problems, including hypertension, coronary artery disease, diabetes mellitus, etc., which are listed below. Past Medical History Past Medical History: Chronic Problems (Last Reviewed 06/10/20 @ 13:[address] Raoul Ortez MD) COPD (chronic obstructive pulmonary disease) (Chronic) History of CVA (cerebrovascular accident) (Chronic) Degenerative disc disease (Chronic) GERD (gastroesophageal reflux disease) (Chronic) Diabetes mellitus (Chronic) Wound, open, elbow (Chronic) Open wnd elbow-complic (Chronic) Chronic diastolic heart failure (Chronic) Pure hypercholesterolemia (Chronic) Essential hypertension (Chronic) Presence of stent in coronary artery (Chronic ~08/11/02) PTCA /Stent of prox and mid LAD 08/11/02 Aortocoronary bypass status (Chronic ~1998) CABG x3- BULL to LAD and to DX of LAD, Lt Radial to RCA 10/06/1998 @ [facility] 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 Three coronary artery stents were placed in 2002. Patient has history of cholecystectomy and hernia repair. Allergies/Adverse Reactions: Allergies clindamycin Adverse Reaction (Unknown, Verified 06/10/20 13:26) Unknown doxepin Adverse Reaction (Verified 06/10/20 13:26) Nausea/Vom/Diarrhea guanfacine Adverse Reaction (Verified 06/10/20 13:26) Nausea/Vom/Diarrhea Penicillins Adverse Reaction (Verified 06/10/20 13:26) Hives Home Medications: Ambulatory Orders Medication Instructions Recorded Duloxetine Hcl [Cymbalta] 60 mg PO BID 08/15/15 Hydromorphone HCl [Dilaudid] 4 mg PO Q6H PRN PRN 08/15/15 Lorazepam [Ativan] 1 mg PO TID PRN PRN 08/15/15 Multivitamins,Ther W-Minerals 1 tab PO DAILY 08/15/15 [Multivitamin With Minerals ([facility])] Niacin [Niacin ER] 500 mg PO QHS 08/15/15 Omeprazole [Prilosec] 20 mg PO DAILY 08/15/15 aspirin 81 mg tablet,delayed 81 mg PO QDAY 06/24/17 release folic acid 1 mg tablet 1 mg PO QDAY 06/24/17 pregabalin 100 mg capsule 100 mg PO BID 06/24/17 quetiapine 100 mg tablet 200 mg PO QHS tab 06/24/17 vitamin B complex 1 tab PO QDAY 06/24/17 melatonin 3 mg tablet 9 mg PO HS PRN tab 02/27/18 topiramate 50 mg tablet 300 mg PO BID tab 02/27/18 oxybutynin chloride 5 mg tablet 15 mg PO QHS tab 07/15/18 erenumab-aooe 70 mg/mL 140 mg SC QMONTH 30 Days #2 ea 03/11/19 subcutaneous auto-injector clopidogrel 75 mg tablet 75 mg PO DAILY #90 tab 07/23/19 metoprolol succinate 50 mg 50 mg PO QDAY #90 tab 07/23/19 tablet,extended release 24 hr potassium chloride 10 mEq 40 meq PO BID #240 cap 07/30/19 capsule,extended release pravastatin 80 mg tablet 40 mg PO DAILY #45 tab 08/12/19 nitroglycerin 0.4 mg sublingual 0.4 mg SUBLINGUAL Q5M PRN #25 tab 12/17/19 tablet Temazepam 15 mg PO QHS PRN PRN 06/28/20 - Family History Paternal Family History: Family History (Last Reviewed 06/10/20 @ 13:[address] Raoul Ortez MD) Father Heart disease Maternal Family History: Family History (Last Reviewed 06/10/20 @ 13:[address] Raoul Ortez MD) Father Heart disease - - The patient's mother at the age of 63 with a history of brain cancer Lives: Spouse/ Significant Other Smoking Status: Never smoker Tobacco Use: Non-smoker Alcohol: None Drugs: None Review of Systems Constitutional: Denies: Chills, Fever, Weight Change Eyes: Denies: Pain, Vision Change HEENT: Denies: Difficulty Hearing, Difficulty Swallowing, Sinus Congestion Cardiovascular: Denies: Chest Pain, Palpitations Respiratory: Denies: Cough, Shortness of Breath Gastrointestinal: Denies: Diarrhea, Nausea, Vomiting Genitourinary: Denies: Dysuria, Hematuria Endocrine: Denies: Heat/ Cold Intolerance, Polydipsia, Polyuria Hematologic/ Lymphatic: Denies: Easy Bruising, Easy Bleeding - Physical Exam Vital Signs Temp Pulse Resp BP 97.6 F L 84 16 135/85 H 07/19/20 10:54 07/19/20 10:54 07/19/20 10:54 07/19/20 10:54 General: Alert, Oriented x3, Cooperative, No apparent distress, Well developed, Well nourished HEENT: Atraumatic, PERRLA, EOMI, Normocephalic Oral: Moist Mucosa Neck: No JVD Lungs: Normal air movement Abdomen: Non-Distended Extremities: No clubbing, No cyanosis, No edema, No Calf Tenderness, - - The wound on the left posterior elbow persists. It is little changed in size or appearance. There is a small amount of undermining. Dimensions are documented elsewhere. There is a small amount of bioburden. There is no sign of infection or cellulitis. Wound Measurements and Assessment WC - Nurse 1 - General Ulcer Measurement Start: 06/28/20 09:15 Freq: Status: Active Protocol: Activity Type Activity Date Activity User E-Sign Co-Sign Detail Recorded Client Recorded Date Recorded By Document 07/19/20 10:54 [facility] [id number] 07/19/20 10:58 [facility] 07/19/20 10:54 Wound Center Nurse 1 [Ulcer Assessment] #1 left elbow -Combined with other wound No -Current Size (cm) - Length 0.4 -Current Size (cm) - Width 0.4 -Current Size (cm) - Depth 0.3 -Total Square Cm 0.16 -Photo Taken No -Epithelialization None Present -Tunneling No -Undermining/Tunneling No -Circular Undermining Yes -Exudate Amt Small -Exudate Type Serosanguineous -Wound Margin Distinct, Outline Attached -Granulation Amt Large (67-100%) -Granulation Quality Red -Slough/Fibrin Yes -Necrosis Amt Small (1-33%) -Necrotic Tissue Type Adherent Slough -Texture (Kiana-wound Skin Appearance) Assessed, Localized Edema ,Scarring -Moisture (Kiana-wound Skin Appearance Assessed ) -Color (Kiana-wound Skin Appearance) Assessed, Erythema -Temperature (Kiana-wound Skin No Abnormality Appearance) (Pt Warm) -Tenderness on Palpation (Kiana-wound No Skin Appearance) -Ulcer Cleansing Rinsed/ Irrigated with Saline -Foul Odor after Cleansing No -Anesthetic Used 4% Lidocaine Solution WC - Nurse 2 - General Ulcer CM Notes Start: 06/28/20 09:15 Freq: Status: Active Protocol: Activity Type Activity Date Activity User E-Sign Co-Sign Detail Recorded Client Recorded Date Recorded By Document 07/19/20 12:27 PL [id number] 07/19/20 12:28 PL 07/19/20 12:27 Wound Center Nurse 2 [Procedure/Treatment] -Time 11:14 -Correct Patient Yes -Correct Side, Site, Position Yes -Correct Procedure Yes -Procedure Performed Yes -Type of Procedure Debridement -Clinical Debridement Subcutaneous -Tissue Removed Subcutaneous -Post Debridement (cm) - Length 0.4 -Post Debridement (cm) - Width 0.4 -Post Debridement (cm) - Depth 0.3 -Total Square (Post) (cm) 0.16 -Area of Debridement (cm) - Length 0.4 -Area of Debridement (cm) - Width 0.4 -Total Square (Area) (cm) 0.16 -Tunneling No -Undermining/Tunneling No -Circular Undermining No -Wound/Ulcer Outcome Not Healed -Ulcer Cleansing Rinsed/ Irrigated with Saline -Foul Odor after Cleansing No -Bioengineered Tissue No -Debridement - Subq, 1st 20sq cm Yes [See Physician Procedure note for Specifics] Pain Scale: 0-10 Numeric [Pain] -Is Patient Pain Free? Yes - Nurse 3 - General Ulcer D/C NN Start: 06/28/20 09:15 Freq: Status: Active Protocol: Activity Type Activity Date Activity User E-Sign Co-Sign Detail Recorded Client Recorded Date Recorded By Document 07/19/20 11:27 [facility] [id number] 07/19/20 11:27 [facility] 07/19/20 11:27 Wound Care Nurse 3 [Wound Dressing] #1 left elbow -Ulcer Cleansing Rinsed/ Irrigated with Saline -Foul Odor after Cleansing No -Primary Dressing Applied Nugauze, Plain Iodoform -Primary Dressing Covered/Secured Dry Gauze, with Secured with Tape -Nugauze, Plain Iodoform 1/4 1 [Compression Applied] LEFT ARM -Other elbow protector [Post Procedure Tolerated] -Treatment Response Procedure Tolerated Well Pain Scale: 0-10 Numeric [Pain] -Is Patient Pain Free? Yes - Visit Discharge [Visit Discharge Information] -Discharge Condition Stable -Ambulatory Status Ambulatory -Transportation Private Auto -Accompanied by Musculoskeletal: No Muscle Wasting Neurological: Cranial nerves II-XII grossly intact, Neuro grossly intact Psych/Mental Status: Normal Affect, Appropriate, Alert and oriented to time, place, person, mood and affect Debridement Note Post-Debridement Measurements/Treatment - Nurse 2 - General Ulcer CM Notes Start: 06/28/20 09:15 Freq: Status: Active Protocol: Activity Type Activity Date Activity User E-Sign Co-Sign Detail Recorded Client Recorded Date Recorded By Document 06/28/20 11:12 PL [id number] 06/28/20 11:13 PL Document 07/05/20 11:55 PL [id number] 07/12/20 09:43 PL Document 07/19/20 12:27 PL [id number] 07/19/20 12:28 PL 06/28/20 07/05/20 07/19/20 11:12 11:55 12:27 Wound Center Nurse 2 #1 left elbow -Time 09:47 11:55 11:14 -Correct Patient Yes Yes Yes -Correct Side, Site, Position Yes Yes Yes -Correct Procedure Yes Yes Yes -Procedure Performed Yes Yes Yes -Type of Procedure Debridement Debridement Debridement -Clinical Debridement Subcutaneous Subcutaneous Subcutaneous -Tissue Removed Subcutaneous Subcutaneous Subcutaneous -Post Debridement (cm) - Length 0.3 0.4 0.4 -Post Debridement (cm) - Width 0.3 0.4 0.4 -Post Debridement (cm) - Depth 0.4 0.3 0.3 -Total Square (Post) (cm) 0.09 0.16 0.16 -Area of Debridement (cm) - Length 0.3 0.4 0.4 -Area of Debridement (cm) - Width 0.3 0.4 0.4 -Total Square (Area) (cm) 0.09 0.16 0.16 -Tunneling No No No -Undermining/Tunneling No No No -Circular Undermining No No No -Wound/Ulcer Outcome Not Healed Not Healed Not Healed -Ulcer Cleansing Rinsed/ Rinsed/ Rinsed/ Irrigated with Irrigated with Irrigated with Saline Saline Saline -Foul Odor after Cleansing No No No -Bioengineered Tissue No No No -Bleeding Controlled with Pressure -Treatment Response Procedure Tolerated Well -Debridement - Subq, 1st 20sq cm Yes Yes Yes Pain Scale: 0-10 Numeric Is Patient Pain Free? Yes Yes Yes WC - Nurse 3 - General Ulcer D/C NN Start: 06/28/20 09:15 Freq: Status: Active Protocol: Activity Type Activity Date Activity User E-Sign Co-Sign Detail Recorded Client Recorded Date Recorded By Document 06/28/20 10:00 MW [id number] 06/28/20 11:13 MW Document 07/05/20 12:21 MW [id number] 07/05/20 12:22 MW Document 07/19/20 11:27 [facility] [id number] 07/19/20 11:27 BM 06/28/20 07/05/20 07/19/20 10:00 12:21 11:27 Wound Care Nurse 3 #1 left elbow -Ulcer Cleansing Rinsed/ Rinsed/ Rinsed/ Irrigated with Irrigated with Irrigated with Saline Saline Saline -Foul Odor after Cleansing No No No -Negative Pressure Wound Therapy N/A N/A -Primary Dressing Applied Nugauze, Plain Nugauze, Plain Nugauze, Plain Iodoform Iodoform Iodoform -Other Dressing 05/30 nugauze -Primary Dressing Covered/Secured with Dry Gauze, Dry Gauze, Dry Gauze, Secured with Secured with Secured with Tape Tape Tape -Nugauze, Plain Iodoform 05/30 1 1 1 LEFT ARM -Lotion applied to leg before No compression wrap -Compression Wrap Ernesto Wrap -Other Refused ernesto elbow protector wrap Treatment Response Procedure Procedure Procedure Tolerated Well Tolerated Well Tolerated Well Pain Scale: 0-10 Numeric Is Patient Pain Free? Yes Yes Yes Teaching: Wound Center Dressing Your Wound -Person Taught Patient,Family Patient,Family -Teaching Method Discussion, Discussion, Demonstration Demonstration -Response to teaching Verbalize Verbalize understanding understanding WC - Visit Discharge Discharge Condition Stable Stable Stable Ambulatory Status Ambulatory Ambulatory Ambulatory Transportation Private Auto Private Auto Private Auto Accompanied by Medication Reconcilliation completed & No No provided to patient/care provider Clinical Summary of Care Provided Yes Yes Laterality: Left Type of Debridement: Excisional debridement Anesthesia Used: 5% Lidocaine Gel Depth: Down to and including healthy tissue, in the subcutaneous layer Percentage of wound debrided: 100 Instrument Used: 3mm curette Tissue Removed: Bioburden Severity: Fat Layer Exposed Amount of bleeding with debridement: Mild Bleeding Controlled with: Compression and gauze Patient tolerated procedure well Assessment/Plan Clinical Impression(s) from Imaging Studies Elbow X-Ray 06/28/20 10:33 IMPRESSION: Normal x-ray examination of the elbow. Electronically Signed: Garfield Oliver MD at 11:15 EST , Service support , Active Problems (Last Reviewed 06/10/20 @ 13:[address] Raoul Ortez MD) COPD (chronic obstructive pulmonary disease) (Chronic) History of CVA (cerebrovascular accident) (Chronic) Degenerative disc disease (Chronic) GERD (gastroesophageal reflux disease) (Chronic) Diabetes mellitus (Chronic) Wound, open, elbow (Chronic) Open wnd elbow-complic (Chronic) Chronic diastolic heart failure (Chronic) Pure hypercholesterolemia (Chronic) Essential hypertension (Chronic) Presence of stent in coronary artery (Chronic ~08/11/02) PTCA /Stent of prox and mid LAD 08/11/02 Aortocoronary bypass status (Chronic ~1998) CABG x3- BULL to LAD and to DX of LAD, Lt Radial to RCA 10/06/1998 @ [facility] 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 He presents with a chronic wound on the left posterior elbow. It has been present for more than 6 months. The patient has undergone a battery of diagnostic studies recently, which have been discussed with the patient. An x-ray of the left elbow reveals a normal humerus, radius, and ulnar. Articulations are unremarkable. Lab results are as follows: White blood count 11.6, hemoglobin 16.3, hematocrit 49.2, platelets 183,000, hemoglobin A1c 5.2, glucose 103, BUN 6, creatinine 0.98, total protein 7.6, albumin 3.5, calcium 8.9, AST 16, alkaline phosphatase 126, ALT 23, total bilirubin 0.40, sodium 143, potassium 3.4, chloride 113, serum prealbumin 30.6. Plan: The patient has been advised to implement offloading measures, to avoid pressure and friction to the area involved. We are to continue packing of the wound using Nu Gauze. The patient and his are to be instructed in the appropriate means of packing, which will be performed on a daily basis. The wound cavity is small, and measures have been described to facilitate the gauze packing remaining in place, and in contact with all portions of the wound cavity. The importance of this measure has been discussed with the patient and his . The punched out morphology of the patient's wound is of concern, given that wound margins are not well beveled, which may be a hindrance to wound healing. This is a factor which will be determined over period of time. At present, however, the goal is to maintain a healthy wound environment, perform serial debridements, and assess the patient temporally to determine the potential for healing. Optimization of the patient's glycemic control and nutritional intake has been advised. The patient is to return in 1 week for reassessment. It is anticipated that serial mechanical debridements will be of benefit in the management of this chronic, nonhealing wound. If the patient fails to heal with current measures, surgical intervention may be necessary in terms of unroofing and operative debridement. We are to seek preauthorization for negative pressure wound therapy by means of the Snap VAC. Influenza vaccine was not administered today. The patient is not a smoker. The patient weighs 240 pounds. He stands 5 feet 10 inches tall. His BMI is 34.4, which places him in an obese class I category. Weight loss has been recommended, in collaboratio n with his primary care physician has been advised. Total time: 25 minutes.
== END 2020-07-24 23:59 ==
LOC: WC 11:00
PROVIDERS: PCP Family Medicine; Referring Provider Family Medicine; Visit Provider Surgery
DX: S51.002D Unspecified open wound of left elbow, subsequent encounter (principal); E11.9 Type 2 diabetes mellitus without complications; I50.32 Chronic diastolic (congestive) heart failure; E78.00 Pure hypercholesterolemia, unspecified; I25.10 Atherosclerotic heart disease of native coronary artery without angina pectoris; I11.0 Hypertensive heart disease with heart failure; Z95.5 Presence of coronary angioplasty implant and graft; Z95.1 Presence of aortocoronary bypass graft; E78.5 Hyperlipidemia, unspecified; J44.9 Chronic obstructive pulmonary disease, unspecified; K21.9 Gastro-esophageal reflux disease without esophagitis; Z86.73 Personal history of transient ischemic attack (TIA), and cerebral infarction without residual deficits; E66.9 Obesity, unspecified; Z68.34 Body mass index [BMI] 34.0-34.9, adult; Z79.82 Long term (current) use of aspirin; Z82.49 Family history of ischemic heart disease and other diseases of the circulatory system; Z88.0 Allergy status to penicillin
CPT/HCPCS: 11042; 36415; 73080; 80053; 83036; 84134; 85025; 99213; G0463

== ENCOUNTER 2020-08-16 11:00 | Outpatient (RCR) | payer OTHER, SELFPAY ==
[2020-07-25 00:35] VITALS: BP 135/85; PULSE 84; RESP 16; TEMP 36.4
[2020-07-26 11:03] VITALS: BP 125/74; PULSE 74; RESP 16; TEMP 36.4; BMI 34.4
--- NOTE | 2020-07-26 13:23 | PCM.WC.HP ---
(1) COPD (chronic obstructive pulmonary disease) Status: Chronic Code(s): J44.9 - Chronic obstructive pulmonary disease, unspecified (2) History of CVA (cerebrovascular accident) Status: Chronic Code(s): Z86.73 - Personal history of transient ischemic attack (TIA), and cerebral infarction without residual deficits (3) Degenerative disc disease Status: Chronic (4) GERD (gastroesophageal reflux disease) Status: Chronic Code(s): K21.9 - Gastro-esophageal reflux disease without esophagitis (5) Diabetes mellitus Status: Chronic Code(s): E11.9 - Type 2 diabetes mellitus without complications (6) Wound, open, elbow Status: Chronic Qualifiers: Encounter type: subsequent encounter Laterality: left Qualified Code(s): S51.002D - Unspecified open wound of left elbow, subsequent encounter Code(s): S51.009A - Unspecified open wound of unspecified elbow, initial encounter (7) Open wnd elbow-complic Status: Chronic Qualifiers: Encounter type: subsequent encounter Laterality: left Qualified Code(s): S51.002D - Unspecified open wound of left elbow, subsequent encounter Code(s): S51.009A - Unspecified open wound of unspecified elbow, initial encounter (8) Chronic diastolic heart failure Status: Chronic Code(s): I50.32 - Chronic diastolic (congestive) heart failure (9) Pure hypercholesterolemia Status: Chronic Code(s): E78.00 - Pure hypercholesterolemia, unspecified (10) Essential hypertension Status: Chronic Code(s): I10 - Essential (primary) hypertension (11) Presence of stent in coronary artery Status: Chronic Code(s): Z95.5 - Presence of coronary angioplasty implant and graft Comment: PTCA /Stent of prox and mid LAD 08/11/02 (12) Aortocoronary bypass status Status: Chronic Code(s): Z95.1 - Presence of aortocoronary bypass graft Comment: CABG x3- BULL to LAD and to DX of LAD, Lt Radial to RCA 10/06/1998 @ [facility] (13) Atherosclerotic heart disease of [place] coronary artery without angina pectoris Status: Chronic Qualifiers: Code(s): I25.10 - Atherosclerotic heart disease of [place] coronary artery without angina pectoris Comment: CABG x3- BULL to LAD and to DX of LAD, Lt Radial to RCA 10/06/1998 @ [facility]; PTCA /Stent of prox and mid LAD 08/11/02 (14) Hypokalemia Status: Acute Code(s): E87.6 - Hypokalemia History of Present Illness Date of Service: 07/26/20 Chief Complaint: Left elbow wound History of Wound: This is a 65-year-old male who presented with a chronic wound on his left posterior elbow. It has been present since approximately October 2019. He is uncertain as to the etiology or source of the wound, indicating that it may have started as an insect bite, and was initially noted to have the appearance of a blister. He has been treated by other physicians, including Dr. Raoul Ortez, who referred the patient, and Dr. Epperson, the patient's primary care physician. Apparently there have been episodes of redness and swelling, for which the patient has been placed on several courses of oral antibiotics, including Cipro and others. The patient has not certain of the attics which he has taken in the past. He is currently treating the area with soap and water. He has previously been advised to use Silvadene topically, as well as antibiotic ointment. Despite all such measures, the patient's left elbow wound has failed to heal, prompting referral to our wound care facility. The patient has multiple pre-existing medical problems, including hypertension, coronary artery disease, diabetes mellitus, etc., which are listed below. Past Medical History Past Medical History: Chronic Problems (Last Reviewed 06/10/20 @ 13:[address] Raoul Ortez MD) COPD (chronic obstructive pulmonary disease) (Chronic) History of CVA (cerebrovascular accident) (Chronic) Degenerative disc disease (Chronic) GERD (gastroesophageal reflux disease) (Chronic) Diabetes mellitus (Chronic) Wound, open, elbow (Chronic) Open wnd elbow-complic (Chronic) Chronic diastolic heart failure (Chronic) Pure hypercholesterolemia (Chronic) Essential hypertension (Chronic) Presence of stent in coronary artery (Chronic ~08/11/02) PTCA /Stent of prox and mid LAD 08/11/02 Aortocoronary bypass status (Chronic ~1998) CABG x3- BULL to LAD and to DX of LAD, Lt Radial to RCA 10/06/1998 @ [facility] Atherosclerotic heart disease of [place] coronary artery without angina pectoris (Chronic) CABG x3- BULL to LAD and to DX of LAD, Lt Radial to RCA 10/06/1998 @ [facility]; PTCA /Stent of prox and mid LAD 08/11/02 Surgical History: - - The patient underwent coronary artery bypass surgery in 1998. Three coronary artery stents were placed in 2002. Patient has history of cholecystectomy and hernia repair. Allergies/Adverse Reactions: Allergies clindamycin Adverse Reaction (Unknown, Verified 06/10/20 13:26) Unknown doxepin Adverse Reaction (Verified 06/10/20 13:26) Nausea/Vom/Diarrhea guanfacine Adverse Reaction (Verified 06/10/20 13:26) Nausea/Vom/Diarrhea Penicillins Adverse Reaction (Verified 06/10/20 13:26) Hives Home Medications: Ambulatory Orders Medication Instructions Recorded Duloxetine Hcl [Cymbalta] 60 mg PO BID 08/15/15 Hydromorphone HCl [Dilaudid] 4 mg PO Q6H PRN PRN 08/15/15 Lorazepam [Ativan] 1 mg PO TID PRN PRN 08/15/15 Multivitamins,Ther W-Minerals 1 tab PO DAILY 08/15/15 [Multivitamin With Minerals ([facility])] Niacin [Niacin ER] 500 mg PO QHS 08/15/15 Omeprazole [Prilosec] 20 mg PO DAILY 08/15/15 aspirin 81 mg tablet,delayed 81 mg PO QDAY 06/24/17 release folic acid 1 mg tablet 1 mg PO QDAY 06/24/17 pregabalin 100 mg capsule 100 mg PO BID 06/24/17 quetiapine 100 mg tablet 200 mg PO QHS tab 06/24/17 vitamin B complex 1 tab PO QDAY 06/24/17 melatonin 3 mg tablet 9 mg PO HS PRN tab 02/27/18 topiramate 50 mg tablet 300 mg PO BID tab 02/27/18 oxybutynin chloride 5 mg tablet 15 mg PO QHS tab 07/15/18 erenumab-aooe 70 mg/mL 140 mg SC QMONTH 30 Days #2 ea 03/11/19 subcutaneous auto-injector clopidogrel 75 mg tablet 75 mg PO DAILY #90 tab 07/23/19 metoprolol succinate 50 mg 50 mg PO QDAY #90 tab 07/23/19 tablet,extended release 24 hr potassium chloride 10 mEq 40 meq PO BID #240 cap 07/30/19 capsule,extended release pravastatin 80 mg tablet 40 mg PO DAILY #45 tab 08/12/19 nitroglycerin 0.4 mg sublingual 0.4 mg SUBLINGUAL Q5M PRN #25 tab 12/17/19 tablet Temazepam 15 mg PO QHS PRN PRN 06/28/20 - Family History Maternal Family History: Family History (Last Reviewed 06/10/20 @ 13:[address] Raoul Ortez MD) Father Heart disease - - The patient's mother at the age of 63 with a history of brain cancer Smoking Status: Never smoker Tobacco Use: Non-smoker Review of Systems Constitutional: Denies: Chills, Fever, Weight Change Eyes: Denies: Pain, Vision Change HEENT: Denies: Difficulty Hearing, Difficulty Swallowing, Sinus Congestion Cardiovascular: Denies: Chest Pain, Palpitations Respiratory: Denies: Cough, Shortness of Breath Gastrointestinal: Denies: Diarrhea, Nausea, Vomiting Genitourinary: Denies: Dysuria, Hematuria Endocrine: Denies: Heat/ Cold Intolerance, Polydipsia, Polyuria Hematologic/ Lymphatic: Denies: Easy Bruising, Easy Bleeding - Physical Exam Vital Signs Temp Pulse Resp BP 97.6 F L 74 16 125/74 H 07/26/20 11:03 07/26/20 11:03 07/26/20 11:03 07/26/20 11:03 General: Alert, Oriented x3, Cooperative, No apparent distress, Well developed, Well nourished HEENT: Atraumatic, PERRLA, EOMI, Normocephalic Oral: Moist Mucosa Neck: No JVD Lungs: Normal air movement Abdomen: Non-Distended Extremities: No clubbing, No cyanosis, No edema, No Calf Tenderness, - - The wound on the left posterior elbow persists. Is represented by a small outer opening. There is undermining throughout a large portion of the wound. No significant drainage is noted. There is no obvious sign of infection or cellulitis. Dimensions are documented elsewhere. Addt'l Wound Findings: There is no sign of infection or cellulitis, though bioburden is present in moderate amount. Skin: No rashes Wound Measurements and Assessment WC - Nurse 1 - General Ulcer Measurement Start: 07/26/20 11:03 Freq: Status: Active Protocol: Activity Type Activity Date Activity User E-Sign Co-Sign Detail Recorded Client Recorded Date Recorded By Document 07/26/20 11:03 MS [id number] 07/26/20 11:10 MS 07/26/20 11:03 Wound Center Nurse 1 [Ulcer Assessment] #1 left elbow -Current Size (cm) - Length 0.4 -Current Size (cm) - Width 0.4 -Current Size (cm) - Depth 0.6 -Total Square Cm 0.16 -Exudate Amt Small -Exudate Type Serosanguineous -Wound Margin Distinct, Outline Attached -Granulation Amt None Present (0 %) -Slough/Fibrin No -Necrosis Amt None Present (0 %) -Texture (Kiana-wound Skin Appearance) No Abnormality -Moisture (Kiana-wound Skin Appearance No Abnormality ) -Color (Kiana-wound Skin Appearance) Erythema -Temperature (Kiana-wound Skin No Abnormality Appearance) (Pt Warm) -Tenderness on Palpation (Kiana-wound No Skin Appearance) -Ulcer Cleansing Rinsed/ Irrigated with Saline -Foul Odor after Cleansing No -Anesthetic Used 5% Lidocaine Gel WC - Nurse 3 - General Ulcer D/C NN Start: 07/26/20 11:03 Freq: Status: Active Protocol: Activity Type Activity Date Activity User E-Sign Co-Sign Detail Recorded Client Recorded Date Recorded By Document 07/26/20 11:30 MW [id number] 07/26/20 11:30 MW 07/26/20 11:30 Wound Care Nurse 3 [Wound Dressing] -Ulcer Cleansing Rinsed/ Irrigated with Saline -Foul Odor after Cleansing No -Negative Pressure Wound Therapy N/A -Other Dressing 1/4 NUGAUZE -Primary Dressing Covered/Secured Dry Gauze, with Secured with Tape [Post Procedure Tolerated] -Treatment Response Procedure Tolerated Well Pain Scale: 0-10 Numeric [Pain] -Is Patient Pain Free? Yes Teaching: Wound Center [Wound Center Education] (Items with an * have Printed Materials Available- Please identify what is given to patient under the Teaching materials given to patient and caregiver Section. Dressing Your Wound -Person Taught Patient,Family -Teaching Method Discussion, Demonstration -Response to teaching Verbalize understanding WC - Visit Discharge [Visit Discharge Information] -Discharge Condition Stable -Ambulatory Status Ambulatory -Transportation Private Auto -Accompanied by -Medication Reconcilliation completed No & provided to patient/care provider -Clinical Summary of Care Provided Yes Musculoskeletal: No Muscle Wasting Neurological: Cranial nerves II-XII grossly intact, Neuro grossly intact Psych/Mental Status: Normal Affect, Appropriate, Alert and oriented to time, place, person, mood and affect Debridement Note Post-Debridement Measurements/Treatment WC - Nurse 3 - General Ulcer D/C NN Start: 07/26/20 11:03 Freq: Status: Active Protocol: Activity Type Activity Date Activity User E-Sign Co-Sign Detail Recorded Client Recorded Date Recorded By Document 07/26/20 11:30 MW [id number] 07/26/20 11:30 MW 07/26/20 11:30 Wound Care Nurse 3 #1 left elbow -Ulcer Cleansing Rinsed/ Irrigated with Saline -Foul Odor after Cleansing No -Negative Pressure Wound Therapy N/A -Other Dressing 05/30 NUGAUZE -Primary Dressing Covered/Secured with Dry Gauze, Secured with Tape Treatment Response Procedure Tolerated Well Pain Scale: 0-10 Numeric Is Patient Pain Free? Yes Teaching: Wound Center Dressing Your Wound -Person Taught Patient,Family -Teaching Method Discussion, Demonstration -Response to teaching Verbalize understanding WC - Visit Discharge Discharge Condition Stable Ambulatory Status Ambulatory Transportation Private Auto Accompanied by Medication Reconcilliation completed & No provided to patient/care provider Clinical Summary of Care Provided Yes Laterality: Left - Posterior elbow Type of Debridement: Excisional debridement Anesthesia Used: 5% Lidocaine Gel Depth: Down to and including healthy tissue, in the subcutaneous layer Percentage of wound debrided: 100 Instrument Used: 3mm curette Tissue Removed: Bioburden Severity: Fat Layer Exposed Amount of bleeding with debridement: Mild Bleeding Controlled with: Compression and gauze Patient tolerated procedure well Assessment/Plan Assessment: This is a 65-year-old male with multiple pre-existing medical problems. He presents with a chronic wound on the left posterior elbow. It has been present for more than 6 months. The patient has undergone a battery of diagnostic studies recently, which have been discussed with the patient. An x-ray of the left elbow reveals a normal humerus, radius, and ulnar. Articulations are unremarkable. Lab results are as follows: White blood count 11.6, hemoglobin 16.3, hematocrit 49.2, platelets 183,000, hemoglobin A1c 5.2, glucose 103, BUN 6, creatinine 0.98, total protein 7.6, albumin 3.5, calcium 8.9, AST 16, alkaline phosphatase 126, ALT 23, total bilirubin 0.40, sodium 143, potassium 3.4, chloride 113, serum prealbumin 30.6. Plan: The patient has been advised to implement offloading measures, to avoid pressure and friction to the area involved. We are to continue packing of the wound using Nu Gauze. The patient and his have been instructed in the appropriate means of packing, which will be continued on a daily basis. The wound cavity is small, and measures have been described to facilitate the gauze packing remaining in place, and in contact with all portions of the wound cavity. The importance of this measure has been discussed with the patient and his . The punched out morphology of the patient's wound is of concern, given that wound margins are not well beveled, which may be a hindrance to wound healing. This is a factor which will be determined over period of time. At present, however, the goal is to maintain a healthy wound environment, perform serial debridements, and assess the patient serially to determine the potential for healing. Optimization of the patient's glycemic control and nutritional intake has been advised. The patient is to return in 1 week for reassessment. It is anticipated that serial mechanical debridements will be of benefit in the management of this chronic, nonhealing wound. If the patient fails to heal with current measures, surgical intervention may be necessary in terms of unroofing and operative debridement. We are to seek preauthorization for negative pressure wound therapy by means of the Snap VAC. Influenza vaccine was not administered today. The patient is not a smoker. The patient weighs 240 pounds. He stands 5 feet 10 inches tall. His BMI is 34.4, which places him in an obese class I category. Weight loss has been recommended, in collaboration with his primary care physician has been advised. Total time: 24 minutes.
[2020-08-02 11:02] VITALS: BP 133/76; PULSE 78; RESP 18; TEMP 37; BMI 34.4
--- NOTE | 2020-08-02 11:20 | PCM.WC.HP ---
(1) COPD (chronic obstructive pulmonary disease) Status: Chronic Code(s): J44.9 - Chronic obstructive pulmonary disease, unspecified (2) History of CVA (cerebrovascular accident) Status: Chronic Code(s): Z86.73 - Personal history of transient ischemic attack (TIA), and cerebral infarction without residual deficits (3) Degenerative disc disease Status: Chronic (4) GERD (gastroesophageal reflux disease) Status: Chronic Code(s): K21.9 - Gastro-esophageal reflux disease without esophagitis (5) Diabetes mellitus Status: Chronic Code(s): E11.9 - Type 2 diabetes mellitus without complications (6) Wound, open, elbow Status: Chronic Qualifiers: Encounter type: subsequent encounter Laterality: left Qualified Code(s): S51.002D - Unspecified open wound of left elbow, subsequent encounter Code(s): S51.009A - Unspecified open wound of unspecified elbow, initial encounter (7) Open wnd elbow-complic Status: Chronic Qualifiers: Encounter type: subsequent encounter Laterality: left Qualified Code(s): S51.002D - Unspecified open wound of left elbow, subsequent encounter Code(s): S51.009A - Unspecified open wound of unspecified elbow, initial encounter (8) Chronic diastolic heart failure Status: Chronic Code(s): I50.32 - Chronic diastolic (congestive) heart failure (9) Pure hypercholesterolemia Status: Chronic Code(s): E78.00 - Pure hypercholesterolemia, unspecified (10) Essential hypertension Status: Chronic Code(s): I10 - Essential (primary) hypertension (11) Presence of stent in coronary artery Status: Chronic Code(s): Z95.5 - Presence of coronary angioplasty implant and graft Comment: PTCA /Stent of prox and mid LAD 08/11/02 (12) Aortocoronary bypass status Status: Chronic Code(s): Z95.1 - Presence of aortocoronary bypass graft Comment: CABG x3- BULL to LAD and to DX of LAD, Lt Radial to RCA 10/06/1998 @ [facility] (13) Atherosclerotic heart disease of [place] coronary artery without angina pectoris Status: Chronic Qualifiers: Code(s): I25.10 - Atherosclerotic heart disease of [place] coronary artery without angina pectoris Comment: CABG x3- BULL to LAD and to DX of LAD, Lt Radial to RCA 10/06/1998 @ [facility]; PTCA /Stent of prox and mid LAD 08/11/02 (14) Hypokalemia Status: Acute Code(s): E87.6 - Hypokalemia History of Present Illness Date of Service: 08/02/20 Chief Complaint: Left elbow wound History of Wound: This is a 65-year-old male who presented with a chronic wound on his left posterior elbow. It has been present since approximately October 2019. He is uncertain as to the etiology or source of the wound, indicating that it may have started as an insect bite, and was initially noted to have the appearance of a blister. He has been treated by other physicians, including Dr. Raoul Ortez, who referred the patient, and Dr. Epperson, the patient's primary care physician. Apparently there have been episodes of redness and swelling, for which the patient has been placed on several courses of oral antibiotics, including Cipro and others. The patient has not certain of the attics which he has taken in the past. He is currently treating the area with soap and water. He has previously been advised to use Silvadene topically, as well as antibiotic ointment. Despite all such measures, the patient's left elbow wound has failed to heal, prompting referral to our wound care facility. The patient has multiple pre-existing medical problems, including hypertension, coronary artery disease, diabetes mellitus, etc., which are listed below. Past Medical History Past Medical History: Chronic Problems (Last Reviewed 06/10/20 @ 13:[address] Raoul Ortez MD) COPD (chronic obstructive pulmonary disease) (Chronic) History of CVA (cerebrovascular accident) (Chronic) Degenerative disc disease (Chronic) GERD (gastroesophageal reflux disease) (Chronic) Diabetes mellitus (Chronic) Wound, open, elbow (Chronic) Open wnd elbow-complic (Chronic) Chronic diastolic heart failure (Chronic) Pure hypercholesterolemia (Chronic) Essential hypertension (Chronic) Presence of stent in coronary artery (Chronic ~08/11/02) PTCA /Stent of prox and mid LAD 08/11/02 Aortocoronary bypass status (Chronic ~1998) CABG x3- BULL to LAD and to DX of LAD, Lt Radial to RCA 10/06/1998 @ [facility] Atherosclerotic heart disease of [place] coronary artery without angina pectoris (Chronic) CABG x3- BULL to LAD and to DX of LAD, Lt Radial to RCA 10/06/1998 @ [facility]; PTCA /Stent of prox and mid LAD 08/11/02 Surgical History: - - The patient underwent coronary artery bypass surgery in 1998. Three coronary artery stents were placed in 2002. Patient has history of cholecystectomy and hernia repair. Allergies/Adverse Reactions: Allergies clindamycin Adverse Reaction (Unknown, Verified 06/10/20 13:26) Unknown doxepin Adverse Reaction (Verified 06/10/20 13:26) Nausea/Vom/Diarrhea guanfacine Adverse Reaction (Verified 06/10/20 13:26) Nausea/Vom/Diarrhea Penicillins Adverse Reaction (Verified 06/10/20 13:26) Hives Home Medications: Ambulatory Orders Medication Instructions Recorded Duloxetine Hcl [Cymbalta] 60 mg PO BID 08/15/15 Hydromorphone HCl [Dilaudid] 4 mg PO Q6H PRN PRN 08/15/15 Lorazepam [Ativan] 1 mg PO TID PRN PRN 08/15/15 Multivitamins,Ther W-Minerals 1 tab PO DAILY 08/15/15 [Multivitamin With Minerals ([facility])] Niacin [Niacin ER] 500 mg PO QHS 08/15/15 Omeprazole [Prilosec] 20 mg PO DAILY 08/15/15 aspirin 81 mg tablet,delayed 81 mg PO QDAY 06/24/17 release folic acid 1 mg tablet 1 mg PO QDAY 06/24/17 pregabalin 100 mg capsule 100 mg PO BID 06/24/17 quetiapine 100 mg tablet 200 mg PO QHS tab 06/24/17 vitamin B complex 1 tab PO QDAY 06/24/17 melatonin 3 mg tablet 9 mg PO HS PRN tab 02/27/18 topiramate 50 mg tablet 300 mg PO BID tab 02/27/18 oxybutynin chloride 5 mg tablet 15 mg PO QHS tab 07/15/18 erenumab-aooe 70 mg/mL 140 mg SC QMONTH 30 Days #2 ea 03/11/19 subcutaneous auto-injector clopidogrel 75 mg tablet 75 mg PO DAILY #90 tab 07/23/19 metoprolol succinate 50 mg 50 mg PO QDAY #90 tab 07/23/19 tablet,extended release 24 hr potassium chloride 10 mEq 40 meq PO BID #240 cap 07/30/19 capsule,extended release pravastatin 80 mg tablet 40 mg PO DAILY #45 tab 08/12/19 nitroglycerin 0.4 mg sublingual 0.4 mg SUBLINGUAL Q5M PRN #25 tab 12/17/19 tablet Temazepam 15 mg PO QHS PRN PRN 06/28/20 - Family History Maternal Family History: Family History (Last Reviewed 06/10/20 @ 13:[address] Raoul Ortez MD) Father Heart disease - - The patient's mother at the age of 63 with a history of brain cancer Smoking Status: Never smoker Tobacco Use: Non-smoker Review of Systems Constitutional: Denies: Chills, Fever, Weight Change Eyes: Denies: Pain, Vision Change HEENT: Denies: Difficulty Hearing, Difficulty Swallowing, Sinus Congestion Cardiovascular: Denies: Chest Pain, Palpitations Respiratory: Denies: Cough, Shortness of Breath Gastrointestinal: Denies: Diarrhea, Nausea, Vomiting Genitourinary: Denies: Dysuria, Hematuria Endocrine: Denies: Heat/ Cold Intolerance, Polydipsia, Polyuria Hematologic/ Lymphatic: Denies: Easy Bruising, Easy Bleeding - Physical Exam Vital Signs Temp Pulse Resp BP 98.6 F 78 18 133/76 H 08/02/20 11:02 08/02/20 11:02 08/02/20 11:02 08/02/20 11:02 General: Alert, Oriented x3, Cooperative, No apparent distress, Well developed, Well nourished HEENT: Atraumatic, PERRLA, EOMI, Normocephalic Oral: Moist Mucosa Neck: No JVD Lungs: Normal air movement Abdomen: Non-Distended Extremities: No clubbing, No cyanosis, No edema Addt'l Wound Findings: The open wound persists on the left posterior elbow. There is a 2 to 3 mm opening. However, there is an underlying cavity with significant undermining. The undermining is approximately 10 to 15 mm, predominantly in the distal extent. There is a moderate amount of bioburden. There is no significant drainage or odor. Dimensions are documented elsewhere. There is no sign of infection or cellulitis. Wound Measurements and Assessment WC - Nurse 1 - General Ulcer Measurement Start: 07/26/20 11:03 Freq: Status: Active Protocol: Activity Type Activity Date Activity User E-Sign Co-Sign Detail Recorded Client Recorded Date Recorded By Document 08/02/20 11:02 PL [id number] 08/02/20 11:09 PL 08/02/20 11:02 Wound Center Nurse 1 [Ulcer Assessment] #1 left elbow -Current Size (cm) - Length 0.2 -Current Size (cm) - Width 0.2 -Current Size (cm) - Depth 0.9 -Total Square Cm 0.04 -Photo Taken No -Epithelialization None Present -Tunneling No -Undermining/Tunneling No -Circular Undermining No -Exudate Amt Medium -Exudate Type Serosanguineous -Granulation Amt None Present (0 %) -Necrosis Amt Small (1-33%) -Necrotic Tissue Type Eschar Musculoskeletal: No Muscle Wasting Neurological: Cranial nerves II-XII grossly intact, Neuro grossly intact Psych/Mental Status: Normal Affect, Appropriate, Alert and oriented to time, place, person, mood and affect Debridement Note Post-Debridement Measurements/Treatment WC - Nurse 2 - General Ulcer CM Notes Start: 07/26/20 11:03 Freq: Status: Active Protocol: Activity Type Activity Date Activity User E-Sign Co-Sign Detail Recorded Client Recorded Date Recorded By Document 07/26/20 14:24 PL [id number] 07/26/20 14:25 PL 07/26/20 14:24 Wound Center Nurse 2 #1 left elbow -Time 11:18 -Correct Patient Yes -Correct Side, Site, Position Yes -Correct Procedure Yes -Procedure Performed Yes -Type of Procedure Debridement -Clinical Debridement Subcutaneous -Tissue Removed Subcutaneous -Post Debridement (cm) - Length 0.4 -Post Debridement (cm) - Width 0.4 -Post Debridement (cm) - Depth 0.6 -Total Square (Post) (cm) 0.16 -Area of Debridement (cm) - Length 0.4 -Area of Debridement (cm) - Width 0.4 -Total Square (Area) (cm) 0.16 -Tunneling No -Undermining/Tunneling No -Circular Undermining No -Wound/Ulcer Outcome Not Healed -Ulcer Cleansing Rinsed/ Irrigated with Saline -Foul Odor after Cleansing No -Bioengineered Tissue No -Debridement - Subq, 1st 20sq cm Yes Pain Scale: 0-10 Numeric Is Patient Pain Free? Yes WC - Nurse 3 - General Ulcer D/C NN Start: 07/26/20 11:03 Freq: Status: Active Protocol: Activity Type Activity Date Activity User E-Sign Co-Sign Detail Recorded Client Recorded Date Recorded By Document 07/26/20 11:30 MW [id number] 07/26/20 11:30 MW 07/26/20 11:30 Wound Care Nurse 3 #1 left elbow -Ulcer Cleansing Rinsed/ Irrigated with Saline -Foul Odor after Cleansing No -Negative Pressure Wound Therapy N/A -Other Dressing 05/30 [id number] -Primary Dressing Covered/Secured with Dry Gauze, Secured with Tape Treatment Response Procedure Tolerated Well Pain Scale: 0-10 Numeric Is Patient Pain Free? Yes Teaching: Wound Center Dressing Your Wound -Person Taught Patient,Family -Teaching Method Discussion, Demonstration -Response to teaching Verbalize understanding WC - Visit Discharge Discharge Condition Stable Ambulatory Status Ambulatory Transportation Private Auto Accompanied by Medication Reconcilliation completed & No provided to patient/care provider Clinical Summary of Care Provided Yes Laterality: Left - Posterior elbow Type of Debridement: Excisional debridement Anesthesia Used: 5% Lidocaine Gel Depth: Down to and including healthy tissue, in the subcutaneous layer Percentage of wound debrided: 100 Instrument Used: - - 1 mm curette Tissue Removed: Bioburden Severity: Fat Layer Exposed Amount of bleeding with debridement: Mild Bleeding Controlled with: Compression and gauze Patient tolerated procedure well Assessment/Plan Active Problems (Last Reviewed 06/10/20 @ 13:[address] Raoul Ortez MD) COPD (chronic obstructive pulmonary disease) (Chronic) History of CVA (cerebrovascular accident) (Chronic) Degenerative disc disease (Chronic) GERD (gastroesophageal reflux disease) (Chronic) Diabetes mellitus (Chronic) Wound, open, elbow (Chronic) Open wnd elbow-complic (Chronic) Chronic diastolic heart failure (Chronic) Pure hypercholesterolemia (Chronic) Essential hypertension (Chronic) Presence of stent in coronary artery (Chronic ~08/11/02) PTCA /Stent of prox and mid LAD 08/11/02 Aortocoronary bypass status (Chronic ~1998) CABG x3- BULL to LAD and to DX of LAD, Lt Radial to RCA 10/06/1998 @ [facility] Atherosclerotic heart disease of [place] coronary artery without angina pectoris (Chronic) CABG x3- BULL to LAD and to DX of LAD, Lt Radial to RCA 10/06/1998 @ [facility]; PTCA /Stent of prox and mid LAD 08/11/02 Hypokalemia (Acute) Assessment: This is a 65-year-old male with multiple pre-existing medical problems. He presents with a chronic wound on the left posterior elbow. It had been present for more than 6 months. The patient has undergone a battery of diagnostic studies recently, which have been discussed with the patient. An x-ray of the left elbow reveals a normal humerus, radius, and ulnar. Articulations are unremarkable. Lab results are as follows: White blood count 11.6, hemoglobin 16.3, hematocrit 49.2, platelets 183,000, hemoglobin A1c 5.2, glucose 103, BUN 6, creatinine 0.98, total protein 7.6, albumin 3.5, calcium 8.9, AST 16, alkaline phosphatase 126, ALT 23, total bilirubin 0.40, sodium 143, potassium 3.4, chloride 113, serum prealbumin 30.6. Plan: The patient has been advised to implement offloading measures, to avoid pressure and friction to the area involved. Approval has been obtained for the implementation of negative pressure wound therapy. As result, we are to Snap VAC, which will remain in place for 1 week. The patient and his are to be instructed in the appropriate management and expectations. Patient is also indicated his desire to proceed with surgical debridement and unroofing. This will require insurance preauthorization and scheduling, likely to take several weeks. In the interim, we will implement negative pressure wound therapy and monitor the patient's progress. A discussion has been undertaken with the patient and his with regard to management options. The punched out morphology of the patient's wound and undermining are of concern, factors which have been discussed with the patient and his with regard to inhibiting the progress of wound healing. These are factors which suggest that surgical unroofing and debridement may be of benefit in expediting the healing of the patient's wound. Optimization of the patient's glycemic control and nutritional intake has been advised. The patient is to return in 1 week for reassessment. Influenza vaccine was not administered today. The patient is not a smoker. The patient weighs 240 pounds. He stands 5 feet 10 inches tall. His BMI is 34.4, which places him in an obese class I category. Weight loss has been recommended, in collaboration with his primary care physician has been advised. Total time: 25 minutes.
[2020-08-09 11:10] VITALS: BP 133/80; PULSE 82; TEMP 36.1; BMI 34.4
--- NOTE | 2020-08-09 11:59 | HP.PCM_ITS ---
(1) COPD (chronic obstructive pulmonary disease) Status: Chronic Code(s): J44.9 - Chronic obstructive pulmonary disease, u nspecified (2) History of CVA (cerebrovascular accident) Status: Chronic Code(s): Z86.73 - Personal history of transient ischemic a ttack (TIA), and cerebral infarction without residual deficits (3) Degenerative disc disease Status: Chronic (4) GERD (gastroesophageal reflux disease) Status: Chronic Code(s): K21.9 - Gastro-esophageal reflux disease without esophagitis (5) Diabetes mellitus Status: Chronic Code(s): E11.9 - Type 2 diabetes mellitus without complications (6) Wound, open, elbow Status: Chronic Qualifiers: Encounter type: subsequent encounter Laterality: left Qualified Code(s): S51.002D - Unspecified open wound of left elbow, subsequent encounter Code(s): S51.009A - Unspecified open wound of unspecified elbow, initial encounter (7) Open wnd elbow-complic Status: Chronic Qualifiers: Encounter type: subsequent encounter Laterality: left Qualified Code(s): S51.002D - Unspecified open wound of left elbow, subsequent encounter Code(s): S51.009A - Unspecified open wound of unspecified elbow, initial encounter (8) Chronic diastolic heart failure Status: Chronic Code(s): I50.32 - Chronic diastolic (congestive) heart failure (9) Pure hypercholesterolemia Status: Chronic Code(s): E78.00 - Pure hypercholesterolemia, unspecified (10) Essential hypertension Status: Chronic Code(s): I10 - Essential (primary) hypertension (11) Presence of stent in coronary artery Status: Chronic Code(s): Z95.5 - Presence of coronary angioplasty implant and graft Comment: PTCA /Stent of prox and mid LAD 08/11/02 (12) Aortocoronary bypass status Status: Chronic Code(s): Z95.1 - Presence of aortocoronary bypass graft Comment: CABG x3- BULL to LAD and to DX of LAD, Lt Radial to RCA 10/06/1998 @ [facility] (13) Atherosclerotic heart disease of [place] coronary artery without angina pectoris Status: Chronic Qualifiers: Code(s): I25.10 - Atherosclerotic heart disease of [place] coronary artery without angina pectoris Comment: CABG x3- BULL to LAD and to DX of LAD, Lt Radial to RCA 10/06/1998 @ [facility]; PTCA /Stent of prox and mid LAD 08/11/02 (14) Hypokalemia Status: Acute Code(s): E87.6 - Hypokalemia History of Present Illness Date of Service: 08/09/20 Chief Complaint: Left elbow wound History of Wound: This is a 65-year-old male who presented with a chronic wound on his left posterior elbow. It has been present since approximately October 2019. He is uncertain as to the etiology or source of the wound, indicating that it may have started as an insect bite, and was initially noted to have the appearance of a blister. He has been treated by other physicians, including Dr. Raoul Ortez, who referred the patient, and Dr. Epperson, the patient's primary care physician. Apparently there have been episodes of redness and swelling, for which the patient has been placed on several courses of oral antibiotics, including Cipro and others. The patient has not certain of the attics which he has taken in the past. He is currently treating the area with soap and water. He has previously been advised to use Silvadene topically, as well as antibiotic ointment. Despite all such measures, the patient's left elbow wound has failed to heal, prompting referral to our wound care facility. The patient has multiple pre-existing medical problems, including hypertension, coronary artery disease, diabetes mellitus, etc., which are listed below. Past Medical History Past Medical History: Chronic Problems (Last Reviewed 06/10/20 @ 13:[address] Raoul Ortez MD) COPD (chronic obstructive pulmonary disease) (Chronic) History of CVA (cerebrovascular accident) (Chronic) Degenerative disc disease (Chronic) GERD (gastroesophageal reflux disease) (Chronic) Diabetes mellitus (Chronic) Wound, open, elbow (Chronic) Open wnd elbow-complic (Chronic) Chronic diastolic heart failure (Chronic) Pure hypercholesterolemia (Chronic) Essential hypertension (Chronic) Presence of stent in coronary artery (Chronic ~08/11/02) PTCA /Stent of prox and mid LAD 08/11/02 Aortocoronary bypass status (Chronic ~1998) CABG x3- BULL to LAD and to DX of LAD, Lt Radial to RCA 10/06/1998 @ [facility] Atherosclerotic heart disease of [place] coronary artery without angina pectoris (Chronic) CABG x3- BULL to LAD and to DX of LAD, Lt Radial to RCA 10/06/1998 @ [facility]; PTCA /Stent of prox and mid LAD 08/11/02 Surgical History: - - The patient underwent coronary artery bypass surgery in 1998. Three coronary artery stents were placed in 2002. Patient has history of cholecystectomy and hernia repair. Allergies/Adverse Reactions: Allergies clindamycin Adverse Reaction (Unknown, Verified 06/10/20 13:26) Unknown doxepin Adverse Reaction (Verified 06/10/20 13:26) Nausea/Vom/Diarrhea guanfacine Adverse Reaction (Verified 06/10/20 13:26) Nausea/Vom/Diarrhea Penicillins Adverse Reaction (Verified 06/10/20 13:26) Hives Home Medications: Ambulatory Orders Medication Instructions Recorded Duloxetine Hcl [Cymbalta] 60 mg PO BID 08/15/15 Hydromorphone HCl [Dilaudid] 4 mg PO Q6H PRN PRN 08/15/15 Lorazepam [Ativan] 1 mg PO TID PRN PRN 08/15/15 Multivitamins,Ther W-Minerals 1 tab PO DAILY 08/15/15 [Multivitamin With Minerals ([facility])] Niacin [Niacin ER] 500 mg PO QHS 08/15/15 Omeprazole [Prilosec] 20 mg PO DAILY 08/15/15 aspirin 81 mg tablet,delayed 81 mg PO QDAY 06/24/17 release folic acid 1 mg tablet 1 mg PO QDAY 06/24/17 pregabalin 100 mg capsule 100 mg PO BID 06/24/17 quetiapine 100 mg tablet 200 mg PO QHS tab 06/24/17 vitamin B complex 1 tab PO QDAY 06/24/17 melatonin 3 mg tablet 9 mg PO HS PRN tab 02/27/18 topiramate 50 mg tablet 300 mg PO BID tab 02/27/18 oxybutynin chloride 5 mg tablet 15 mg PO QHS tab 07/15/18 erenumab-aooe 70 mg/mL 140 mg SC QMONTH 30 Days #2 ea 03/11/19 subcutaneous auto-injector metoprolol succinate 50 mg 50 mg PO QDAY #90 tab 07/23/19 tablet,extended release 24 hr potassium chloride 10 mEq 40 meq PO BID #240 cap 07/30/19 capsule,extended release pravastatin 80 mg tablet 40 mg PO DAILY #45 tab 08/12/19 nitroglycerin 0.4 mg sublingual 0.4 mg SUBLINGUAL Q5M PRN #25 tab 12/17/19 tablet Temazepam 15 mg PO QHS PRN PRN 06/28/20 clopidogrel 75 mg tablet 75 mg PO DAILY #90 tab 08/05/20 - Family History Maternal Family History: Family History (Last Reviewed 06/10/20 @ 13:[address] Raoul Ortez MD) Father Heart disease - - The patient's mother at the age of 63 with a history of brain cancer Smoking Status: Never smoker Tobacco Use: Non-smoker Review of Systems Constitutional: Denies: Chills, Fever, Weight Change Eyes: Denies: Pain, Vision Change HEENT: Denies: Difficulty Hearing, Difficulty Swallowing, Sinus Congestion Cardiovascular: Denies: Chest Pain, Palpitations Respiratory: Denies: Cough, Shortness of Breath Gastrointestinal: Denies: Diarrhea, Nausea, Vomiting Genitourinary: Denies: Dysuria, Hematuria Endocrine: Denies: Heat/ Cold Intolerance, Polydipsia, Polyuria Hematologic/ Lymphatic: Denies: Easy Bruising, Easy Bleeding - Physical Exam Vital Signs Temp Pulse Resp BP 96.9 F L 82 18 133/80 H 08/09/20 11:10 08/09/20 11:10 08/02/20 11:02 08/09/20 11:10 General: Alert, Oriented x3, Cooperative, No apparent distress, Well developed, Well nourished HEENT: Atraumatic, PERRLA, EOMI, Normocephalic Oral: Moist Mucosa Neck: No JVD Lungs: Normal air movement Abdomen: Non-Distended Extremities: No clubbing, No cyanosis, No edema, No Calf Tenderness Addt'l Wound Findings: The wound on the left posterior elbow persists. It appears to be slightly smaller in size. Dimensions are documented elsewhere, but the area of maximal undermining appears to measure approximately 10 mm, extending inferiorly. Due to the use of the Snap VAC, there is a very small, localized area of irritation directly adjacent to the wound itself. There is no evidence of infection or cellulitis. There is a moderate amount of bioburden. In general, the wound appears generally pink and healthy in appearance, somewhat improved over previous assessments. Skin: No rashes Wound Measurements and Assessment WC - Nurse 1 - General Ulcer Measurement Start: 07/26/20 11:03 Freq: Status: Active Protocol: Activity Type Activity Date Activity User E-Sign Co-Sign Detail Recorded Client Recorded Date Recorded By Document 08/09/20 11:10 KENNA [id number] 08/09/20 11:15 KENNA 08/09/20 11:10 Wound Center Nurse 1 [Ulcer Assessment] #1 left elbow -Current Size (cm) - Length 0.3 -Current Size (cm) - Width 0.3 -Current Size (cm) - Depth 0.4 -Total Square Cm 0.09 -Maximum Distance (cm) 0.3 -Exudate Amt Medium -Exudate Type Serosanguineous -Wound Margin Distinct, Outline Attached -Granulation Amt Medium (34-66%) -Granulation Quality Red -Necrosis Amt Medium (34-66%) -Necrotic Tissue Type Adherent Slough -Texture (Kiana-wound Skin Appearance) Assessed, Scarring -Moisture (Kiana-wound Skin Appearance No Abnormality, ) Assessed -Color (Kiana-wound Skin Appearance) No Abnormality, Assessed -Temperature (Kiana-wound Skin No Abnormality Appearance) (Pt Warm) -Tenderness on Palpation (Kiana-wound No Skin Appearance) -Ulcer Cleansing Rinsed/ Irrigated with Saline -Foul Odor after Cleansing No -Anesthetic Used 5% Lidocaine Gel Neurological: Cranial nerves II-XII grossly intact, Neuro grossly intact Psych/Mental Status: Normal Affect, Appropriate, Alert and oriented to time, place, person, mood and affect Debridement Note Post-Debridement Measurements/Treatment WC - Nurse 2 - General Ulcer CM Notes Start: 07/26/20 11:03 Freq: Status: Active Protocol: Activity Type Activity Date Activity User E-Sign Co-Sign Detail Recorded Client Recorded Date Recorded By Document 07/26/20 14:24 PL [id number] 07/26/20 14:25 PL Document 08/02/20 13:07 PL [id number] 08/02/20 13:08 PL 07/26/20 08/02/20 14:24 13:07 Wound Center Nurse 2 #1 left elbow -Time 11:18 11:13 -Correct Patient Yes Yes -Correct Side, Site, Position Yes Yes -Correct Procedure Yes Yes -Procedure Performed Yes Yes -Type of Procedure Debridement Debridement -Clinical Debridement Subcutaneous Subcutaneous -Tissue Removed Subcutaneous Subcutaneous -Post Debridement (cm) - Length 0.4 0.2 -Post Debridement (cm) - Width 0.4 0.2 -Post Debridement (cm) - Depth 0.6 1.4 -Total Square (Post) (cm) 0.16 0.04 -Area of Debridement (cm) - Length 0.4 0.2 -Area of Debridement (cm) - Width 0.4 0.2 -Total Square (Area) (cm) 0.16 0.04 -Tunneling No No -Undermining/Tunneling No No -Circular Undermining No No -Wound/Ulcer Outcome Not Healed Not Healed -Ulcer Cleansing Rinsed/ Rinsed/ Irrigated with Irrigated with Saline Saline -Foul Odor after Cleansing No No -Bioengineered Tissue No No -Bleeding Controlled with Pressure -Treatment Response Procedure Tolerated Well -Debridement - Subq, 1st 20sq cm Yes Yes Pain Scale: 0-10 Numeric Is Patient Pain Free? Yes Yes - Nurse 3 - General Ulcer D/C NN Start: 07/26/20 11:03 Freq: Status: Active Protocol: Activity Type Activity Date Activity User E-Sign Co-Sign Detail Recorded Client Recorded Date Recorded By Document 07/26/20 11:30 MW [id number] 07/26/20 11:30 MW Document 08/02/20 13:07 PL [id number] 08/02/20 13:08 PL 07/26/20 08/02/20 11:30 13:07 Wound Care Nurse 3 #1 left elbow -Ulcer Cleansing Rinsed/ Rinsed/ Irrigated with Irrigated with Saline Saline -Foul Odor after Cleansing No No -Negative Pressure Wound Therapy N/A Start -Setting (mmHg) 125 -Negative Pressure is Continuous -Other Dressing 1/4 [id number] -Primary Dressing Covered/Secured with Dry Gauze, Secured with Tape -NPWT Application Charge ($) NPWT </= 50 sq cm (disp) Treatment Response Procedure Tolerated Well Pain Scale: 0-10 Numeric Is Patient Pain Free? Yes Yes Teaching: Wound Center Dressing Your Wound -Person Taught Patient,Family -Teaching Method Discussion, Demonstration -Response to teaching Verbalize understanding WC - Visit Discharge Discharge Condition Stable Stable Ambulatory Status Ambulatory Ambulatory Transportation Private Auto Private Auto Accompanied by Medication Reconcilliation completed & No provided to patient/care provider Clinical Summary of Care Provided Yes Yes Laterality: Left - Posterior elbow Type of Debridement: Excisional debridement Anesthesia Used: 5% Lidocaine Gel Depth: Down to and including healthy tissue, in the subcutaneous layer Percentage of wound debrided: 100 Instrument Used: 3mm curette Tissue Removed: Bioburden Severity: Fat Layer Exposed Amount of bleeding with debridement: Mild Bleeding Controlled with: Compression and gauze Patient tolerated procedure well Assessment/Plan Active Problems (Last Reviewed 06/10/20 @ 13:[address] Raoul Ortez MD) COPD (chronic obstructive pulmonary disease) (Chronic) History of CVA (cerebrovascular accident) (Chronic) Degenerative disc disease (Chronic) GERD (gastroesophageal reflux disease) (Chronic) Diabetes mellitus (Chronic) Wound, open, elbow (Chronic) Open wnd elbow-complic (Chronic) Chronic diastolic heart failure (Chronic) Pure hypercholesterolemia (Chronic) Essential hypertension (Chronic) Presence of stent in coronary artery (Chronic ~08/11/02) PTCA /Stent of prox and mid LAD 08/11/02 Aortocoronary bypass status (Chronic ~1998) CABG x3- BULL to LAD and to DX of LAD, Lt Radial to RCA 10/06/1998 @ [facility] Atherosclerotic heart disease of [place] coronary artery without angina pectoris (Chronic) CABG x3- BULL to LAD and to DX of LAD, Lt Radial to RCA 10/06/1998 @ [facility]; PTCA /Stent of prox and mid LAD 08/11/02 Hypokalemia (Acute) Assessment: This is a 65-year-old male with multiple pre-existing medical problems. He presents with a chronic wound on the left posterior elbow. It had been present for more than 6 months. The patient has undergone a battery of diagnostic studies recently, which have been discussed with the patient. An x-ray of the left elbow reveals a normal humerus, radius, and ulnar. Articulations are unremarkable. Lab results are as follows: White blood count 11.6, hemoglobin 16.3, hematocrit 49.2, platelets 183,000, hemoglobin A1c 5.2, glucose 103, BUN 6, creatinine 0.98, total protein 7.6, albumin 3.5, calcium 8.9, AST 16, alkaline phosphatase 126, ALT 23, total bilirubin 0.40, sodium 143, potassium 3.4, chloride 113, serum prealbumin 30.6. Plan: The patient has been advised to implement offloading measures, to avoid pressure and friction to the area involved. Approval has been obtained for the implementation of negative pressure wound therapy. The Snap VAC has been implemented for the last week, and will be continued. It will be applied today, and will likely remain in place until the patient's follow-up visit in 1 week. The patient and his have been instructed in the appropriate management and expectations. The patient has also indicated his desire to proceed with surgical debridement and unroofing. This will require insurance preauthorization and scheduling, likely to take several weeks. In the interim, we will continue negative pressure wound therapy and monitor the patient's progress. A discussion has been undertaken with the patient and his with regard to management options. The punched out morphology of the patient's wound and undermining are of concern, factors which have been discussed with the patient and his with regard to inhibiting the progress of wound healing. These are factors which suggest that surgical unroofing and debridement may be of benefit in expediting the healing of the patient's wound. Optimization of the patient's glycemic control and nutritional intake has been advised. The patient is to return in 1 week for reassessment. In the interim, it is learned, the patient is scheduled to undergo surgery on a toe by Dr. Carter, Podiatric Surgeon, on July, in the office setting. Surgery is related to a diabetic foot wound. Influenza vaccine was not administered today. The patient is not a smoker. The patient weighs 240 pounds. He stands 5 feet 10 inches tall. His BMI is 34.4, which places him in an obese class I category. Weight loss has been recommended, in collaboration with his primary care physician has been advised. Total time: 26 minutes.
[2020-08-16 11:16] VITALS: BP 117/81; PULSE 84; TEMP 36.3; BMI 34.4
--- NOTE | 2020-08-16 12:40 | HP.PCM_ITS ---
(1) COPD (chronic obstructive pulmonary disease) Status: Chronic Code(s): J44.9 - Chronic obstructive pulmonary disease, u nspecified (2) History of CVA (cerebrovascular accident) Status: Chronic Code(s): Z86.73 - Personal history of transient ischemic a ttack (TIA), and cerebral infarction without residual deficits (3) Degenerative disc disease Status: Chronic (4) GERD (gastroesophageal reflux disease) Status: Chronic Code(s): K21.9 - Gastro-esophageal reflux disease without esophagitis (5) Diabetes mellitus Status: Chronic Code(s): E11.9 - Type 2 diabetes mellitus without complications (6) Wound, open, elbow Status: Chronic Qualifiers: Encounter type: subsequent encounter Laterality: left Qualified Code(s): S51.002D - Unspecified open wound of left elbow, subsequent encounter Code(s): S51.009A - Unspecified open wound of unspecified elbow, initial encounter (7) Open wnd elbow-complic Status: Chronic Qualifiers: Encounter type: subsequent encounter Laterality: left Qualified Code(s): S51.002D - Unspecified open wound of left elbow, subsequent encounter Code(s): S51.009A - Unspecified open wound of unspecified elbow, initial encounter (8) Chronic diastolic heart failure Status: Chronic Code(s): I50.32 - Chronic diastolic (congestive) heart failure (9) Pure hypercholesterolemia Status: Chronic Code(s): E78.00 - Pure hypercholesterolemia, unspecified (10) Essential hypertension Status: Chronic Code(s): I10 - Essential (primary) hypertension (11) Presence of stent in coronary artery Status: Chronic Code(s): Z95.5 - Presence of coronary angioplasty implant and graft Comment: PTCA /Stent of prox and mid LAD 08/11/02 (12) Aortocoronary bypass status Status: Chronic Code(s): Z95.1 - Presence of aortocoronary bypass graft Comment: CABG x3- BULL to LAD and to DX of LAD, Lt Radial to RCA 10/06/1998 @ [facility] (13) 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 It has been present since approximately October 2019. He is uncertain as to the etiology or source of the wound, indicating that it may have started as an insect bite, and was initially noted to have the appearance of a blister. He has been treated by other physicians, including Dr. Raoul Ortez, who referred the patient, and Dr. Epperson, the patient's primary care physician. Apparently there have been episodes of redness and swelling, for which the patient has been placed on several courses of oral antibiotics, including Cipro and others. The patient has not certain of the attics which he has taken in the past. He is currently treating the area with soap and water. He has previously been advised to use Silvadene topically, as well as antibiotic ointment. Despite all such measures, the patient's left elbow wound has failed to heal, prompting referral to our wound care facility. The patient has multiple pre-existing medical problems, including hypertension, coronary artery disease, diabetes mellitus, etc., which are listed below. Past Medical History Past Medical History: Chronic Problems (Last Reviewed 06/10/20 @ 13:[address] Raoul Ortez MD) COPD (chronic obstructive pulmonary disease) (Chronic) History of CVA (cerebrovascular accident) (Chronic) Degenerative disc disease (Chronic) GERD (gastroesophageal reflux disease) (Chronic) Diabetes mellitus (Chronic) Wound, open, elbow (Chronic) Open wnd elbow-complic (Chronic) Chronic diastolic heart failure (Chronic) Pure hypercholesterolemia (Chronic) Essential hypertension (Chronic) Presence of stent in coronary artery (Chronic ~08/11/02) PTCA /Stent of prox and mid LAD 08/11/02 Aortocoronary bypass status (Chronic ~1998) CABG x3- BULL to LAD and to DX of LAD, Lt Radial to RCA 10/06/1998 @ [facility] Atherosclerotic heart disease of [place] coronary artery without angina pectoris (Chronic) CABG x3- BULL to LAD and to DX of LAD, Lt Radial to RCA 10/06/1998 @ [facility]; PTCA /Stent of prox and mid LAD 08/11/02 Surgical History: - - The patient underwent coronary artery bypass surgery in 1998. Three coronary artery stents were placed in 2002. Patient has history of cholecystectomy and hernia repair. Allergies/Adverse Reactions: Allergies clindamycin Adverse Reaction (Unknown, Verified 06/10/20 13:26) Unknown doxepin Adverse Reaction (Verified 06/10/20 13:26) Nausea/Vom/Diarrhea guanfacine Adverse Reaction (Verified 06/10/20 13:26) Nausea/Vom/Diarrhea Penicillins Adverse Reaction (Verified 06/10/20 13:26) Hives Home Medications: Ambulatory Orders Medication Instructions Recorded Duloxetine Hcl [Cymbalta] 60 mg PO BID 08/15/15 Hydromorphone HCl [Dilaudid] 4 mg PO Q6H PRN PRN 08/15/15 Lorazepam [Ativan] 1 mg PO TID PRN PRN 08/15/15 Multivitamins,Ther W-Minerals 1 tab PO DAILY 08/15/15 [Multivitamin With Minerals ([facility])] Niacin [Niacin ER] 500 mg PO QHS 08/15/15 Omeprazole [Prilosec] 20 mg PO DAILY 08/15/15 aspirin 81 mg tablet,delayed 81 mg PO QDAY 06/24/17 release folic acid 1 mg tablet 1 mg PO QDAY 06/24/17 pregabalin 100 mg capsule 100 mg PO BID 06/24/17 quetiapine 100 mg tablet 200 mg PO QHS tab 06/24/17 vitamin B complex 1 tab PO QDAY 06/24/17 melatonin 3 mg tablet 9 mg PO HS PRN tab 02/27/18 topiramate 50 mg tablet 300 mg PO BID tab 02/27/18 oxybutynin chloride 5 mg tablet 15 mg PO QHS tab 07/15/18 erenumab-aooe 70 mg/mL 140 mg SC QMONTH 30 Days #2 ea 03/11/19 subcutaneous auto-injector nitroglycerin 0.4 mg sublingual 0.4 mg SUBLINGUAL Q5M PRN #25 tab 12/17/19 tablet Temazepam 15 mg PO QHS PRN PRN 06/28/20 clopidogrel 75 mg tablet 75 mg PO DAILY #90 tab 08/05/20 pravastatin 80 mg tablet 40 mg PO DAILY #45 tab 08/11/20 metoprolol succinate 50 mg See Rx Instructions .ROUTE 08/12/20 tablet,extended release 24 hr .COMPLEX #90 tab potassium chloride 10 mEq See Rx Instructions .ROUTE 08/12/20 capsule,extended release .COMPLEX #240 cap - Family History Maternal Family History: Family History (Last Reviewed 06/10/20 @ 13:[address] Raoul Ortez MD) Father Heart disease - - The patient's mother at the age of 63 with a history of brain cancer Smoking Status: Never smoker Tobacco Use: Non-smoker Review of Systems Constitutional: Denies: Chills, Fever, Weight Change Eyes: Denies: Pain, Vision Change HEENT: Denies: Difficulty Hearing, Difficulty Swallowing, Sinus Congestion Cardiovascular: Denies: Chest Pain, Palpitations Respiratory: Denies: Cough, Shortness of Breath Gastrointestinal: Denies: Diarrhea, Nausea, Vomiting Genitourinary: Denies: Dysuria, Hematuria Endocrine: Denies: Heat/ Cold Intolerance, Polydipsia, Polyuria Hematologic/ Lymphatic: Denies: Easy Bruising, Easy Bleeding - Physical Exam Vital Signs Temp Pulse Resp BP 97.4 F L 84 18 117/81 H 08/16/20 11:16 08/16/20 11:16 08/02/20 11:02 08/16/20 11:16 General: Alert, Oriented x3, Cooperative, No apparent distress, Well developed, Well nourished HEENT: Atraumatic, PERRLA, EOMI, Normocephalic Oral: Moist Mucosa Neck: No JVD Lungs: Normal air movement Abdomen: Non-Distended Extremities: No clubbing, No cyanosis, No edema, No Calf Tenderness, - - The wound on the left posterior elbow persists. Depth remains relatively unchanged. It appears to measure approximately 12 mm in depth, extending distally. However, the tunnel/tract appears to be much narrower, including the external opening. Skin: No rashes Wound Measurements and Assessment WC - Nurse 1 - General Ulcer Measurement Start: 07/26/20 11:03 Freq: Status: Active Protocol: Activity Type Activity Date Activity User E-Sign Co-Sign Detail Recorded Client Recorded Date Recorded By Document 08/16/20 11:16 KENNA [id number] 08/16/20 11:20 KR 08/16/20 11:16 Wound Center Nurse 1 [Ulcer Assessment] #1 left elbow -Current Size (cm) - Length 0.1 -Current Size (cm) - Width 0.1 -Current Size (cm) - Depth 0.1 -Total Square Cm 0.01 -Exudate Amt None Present -Wound Margin Distinct, Outline Attached -Granulation Amt Small (1-33%) -Granulation Quality Thunderbolt -Slough/Fibrin No -Necrosis Amt None Present (0 %) -Texture (Kiana-wound Skin Appearance) Assessed, Scarring -Moisture (Kiana-wound Skin Appearance No Abnormality, ) Assessed -Color (Kiana-wound Skin Appearance) No Abnormality, Assessed -Temperature (Kiana-wound Skin No Abnormality Appearance) (Pt Warm) -Tenderness on Palpation (Kiana-wound No Skin Appearance) -Ulcer Cleansing Rinsed/ Irrigated with Saline -Foul Odor after Cleansing No -Anesthetic Used 5% Lidocaine Gel Neurological: Cranial nerves II-XII grossly intact, Neuro grossly intact Psych/Mental Status: Normal Affect, Appropriate, Alert and oriented to time, place, person, mood and affect Debridement Note Post-Debridement Measurements/Treatment WC - Nurse 2 - General Ulcer CM Notes Start: 07/26/20 11:03 Freq: Status: Active Protocol: Activity Type Activity Date Activity User E-Sign Co-Sign Detail Recorded Client Recorded Date Recorded By Document 07/26/20 14:24 [id number] 07/26/20 14:25 PL Document 08/02/20 13:07 [id number] 08/02/20 13:08 PL Document 08/09/20 14:59 [id number] 08/09/20 15:02 PL 07/26/20 08/02/20 08/09/20 14:24 13:07 14:59 Wound Center Nurse 2 #1 left elbow -Time 11:18 11:13 11:15 -Correct Patient Yes Yes Yes -Correct Side, Site, Position Yes Yes Yes -Correct Procedure Yes Yes Yes -Procedure Performed Yes Yes Yes -Type of Procedure Debridement Debridement Debridement -Clinical Debridement Subcutaneous Subcutaneous Subcutaneous -Tissue Removed Subcutaneous Subcutaneous Subcutaneous -Post Debridement (cm) - Length 0.4 0.2 0.3 -Post Debridement (cm) - Width 0.4 0.2 0.3 -Post Debridement (cm) - Depth 0.6 1.4 1.0 -Total Square (Post) (cm) 0.16 0.04 0.09 -Area of Debridement (cm) - Length 0.4 0.2 0.3 -Area of Debridement (cm) - Width 0.4 0.2 0.3 -Total Square (Area) (cm) 0.16 0.04 0.09 -Tunneling No No No -Undermining/Tunneling No No No -Circular Undermining No No No -Wound/Ulcer Outcome Not Healed Not Healed Not Healed -Ulcer Cleansing Rinsed/ Rinsed/ Rinsed/ Irrigated with Irrigated with Irrigated with Saline Saline Saline -Foul Odor after Cleansing No No No -Bioengineered Tissue No No No -Bleeding Controlled with Pressure -Treatment Response Procedure Tolerated Well -Debridement - Subq, 1st 20sq cm Yes Yes Yes Pain Scale: 0-10 Numeric Is Patient Pain Free? Yes Yes Yes - Nurse 3 - General Ulcer D/C NN Start: 07/26/20 11:03 Freq: Status: Active Protocol: Activity Type Activity Date Activity User E-Sign Co-Sign Detail Recorded Client Recorded Date Recorded By Document 07/26/20 11:30 MW [id number] 07/26/20 11:30 MW Document 08/02/20 13:07 PL [id number] 08/02/20 13:08 PL Document 08/09/20 11:59 MW [id number] 08/09/20 12:00 MW 07/26/20 08/02/20 08/09/20 11:30 13:07 11:59 Wound Care Nurse 3 #1 left elbow -Ulcer Cleansing Rinsed/ Rinsed/ Rinsed/ Irrigated with Irrigated with Irrigated with Saline Saline Saline -Foul Odor after Cleansing No No No -Negative Pressure Wound Therapy N/A Start Start -Setting (mmHg) 125 125 -Negative Pressure is Continuous Continuous -Other Dressing 1/ NUGAUZE -Primary Dressing Covered/Secured with Dry Gauze, Secured with Tape -NPWT Application Charge ($) NPWT </= 50 sq NPWT </= 50 sq cm (disp) cm (disp) Treatment Response Procedure Procedure Tolerated Well Tolerated Well Pain Scale: 0-10 Numeric Is Patient Pain Free? Yes Yes Yes Teaching: Wound Center Dressing Your Wound -Person Taught Patient,Family Patient,Family -Teaching Method Discussion, Discussion, Demonstration Demonstration -Response to teaching Verbalize Verbalize understanding understanding WC - Visit Discharge Discharge Condition Stable Stable Stable Ambulatory Status Ambulatory Ambulatory Ambulatory Transportation Private Auto Private Auto Private Auto Accompanied by Medication Reconcilliation completed & No No provided to patient/care provider Clinical Summary of Care Provided Yes Yes Yes Laterality: Left - Posterior elbow Type of Debridement: Excisional debridement Anesthesia Used: 5% Lidocaine Gel Depth: Down to and including healthy tissue, in the subcutaneous layer Percentage of wound debrided: 100 Instrument Used: - - Probe Severity: Fat Layer Exposed Amount of bleeding with debridement: Mild Bleeding Controlled with: Compression and gauze Patient tolerated procedure well The wound cavity was actually packed using 1/4 inch Nu Gauze, which was placed within the depths of the wound. However, as expected, due to the narrow tract and external opening, there was some difficulty and challenge in placing the 1/4 inch Nu Gauze. Assessment/Plan Active Problems (Last Reviewed 06/10/20 @ 13:[address] Raoul Ortez MD) COPD (chronic obstructive pulmonary disease) (Chronic) History of CVA (cerebrovascular accident) (Chronic) Degenerative disc disease (Chronic) GERD (gastroesophageal reflux disease) (Chronic) Diabetes mellitus (Chronic) Wound, open, elbow (Chronic) Open wnd elbow-complic (Chronic) Chronic diastolic heart failure (Chronic) Pure hypercholesterolemia (Chronic) Essential hypertension (Chronic) Presence of stent in coronary artery (Chronic ~08/11/02) PTCA /Stent of prox and mid LAD 08/11/02 Aortocoronary bypass status (Chronic ~1998) CABG x3- BULL to LAD and to DX of LAD, Lt Radial to RCA 10/06/1998 @ [facility] Atherosclerotic heart disease of [place] coronary artery without angina pectoris (Chronic) CABG x3- BULL to LAD and to DX of LAD, Lt Radial to RCA 10/06/1998 @ [facility]; PTCA /Stent of prox and mid LAD 08/11/02 Hypokalemia (Acute) Assessment: This is a 65-year-old male with multiple pre-existing medical problems. He presents with a chronic wound on the left posterior elbow. It had been present for more than 6 months. The patient has undergone a battery of diagnostic studies recently, which have been discussed with the patient. An x-ray of the left elbow reveals a normal humerus, radius, and ulnar. Articulations are unremarkable. Lab results are as follows: White blood count 11.6, hemoglobin 16.3, hematocrit 49.2, platelets 183,000, hemoglobin A1c 5.2, glucose 103, BUN 6, creatinine 0.98, total protein 7.6, albumin 3.5, calcium 8.9, AST 16, alkaline phosphatase 126, ALT 23, total bilirubin 0.40, sodium 143, potassium 3.4, chloride 113, serum prealbumin 30.6. Plan: The patient has been advised to implement offloading measures, to avoid pressure and friction to the area involved. Approval has been obtained for the implementation of negative pressure wound therapy. The Snap VAC has been implemented. However, due to the decreasing width of the wound tract, and difficulties anticipated in placing the Snap VAC, we are to transition to the use of quarter inch Nu Gauze packing, on a daily basis. It is expected that this may present some difficulties in placing the gauze packing within the cavity due to the decreasing size of the cavity itself, and its external opening. If this occurs, the patient and his have been advised to simply maintain a dry sterile gauze dressing, and to change daily or as necessary. The patient has indicated his desire to proceed with surgical debridement and unroofing. This will require insurance preauthorization and scheduling, likely to take several weeks. A discussion has been undertaken with the patient and his with regard to management options. The punched out morphology of the patient's wound and undermining are of concern, factors which have been discussed with the patient and his with regard to inhibiting the progress of wound healing. These are factors which suggest that surgical unroofing and debridement may be of benefit in expediting the healing of the patient's wound. Optimization of the patient's glycemic control and nutritional intake has been advised. The patient is to return in 1 week for reassessment. The patient underwent successful partial left great toe amputation by Dr. Carter, Podiatric Surgeon, on July, in the office setting. Influenza vaccine was not administered today. The patient is not a smoker. The patient weighs 240 pounds. He stands 5 feet 10 inches tall. His BMI is 34.4, which places him in an obese class I category. Weight loss has been recommended, in collaboration with his primary care physician has been advised. Total time: 28 minutes.
== END 2020-08-24 23:59 ==
LOC: WC 11:00
PROVIDERS: PCP Family Medicine; Referring Provider Family Medicine; Visit Provider Surgery
DX: S51.002D Unspecified open wound of left elbow, subsequent encounter (principal); I50.32 Chronic diastolic (congestive) heart failure; I11.0 Hypertensive heart disease with heart failure; E78.00 Pure hypercholesterolemia, unspecified; K21.9 Gastro-esophageal reflux disease without esophagitis; J44.9 Chronic obstructive pulmonary disease, unspecified; Z86.73 Personal history of transient ischemic attack (TIA), and cerebral infarction without residual deficits; Z95.1 Presence of aortocoronary bypass graft; I25.10 Atherosclerotic heart disease of native coronary artery without angina pectoris; E87.6 Hypokalemia; E11.9 Type 2 diabetes mellitus without complications; E66.9 Obesity, unspecified; Z68.34 Body mass index [BMI] 34.0-34.9, adult; Z79.82 Long term (current) use of aspirin; Z82.49 Family history of ischemic heart disease and other diseases of the circulatory system; Z88.0 Allergy status to penicillin; Z95.5 Presence of coronary angioplasty implant and graft
CPT/HCPCS: 11042; 97607; 99213; G0463

== ENCOUNTER → 2020-09-08 17:02 | Outpatient (CLI) | payer OTHER, SELFPAY ==
[2020-08-16 11:16] VITALS: BMI 34.4
[2020-08-30 10:59] VITALS: BMI 34.4
--- NOTE | 2020-09-08 17:03 | MRI_ITS ---
STUDY: MRI BRAIN WITHOUT CONTRAST REASON FOR EXAM: Male, 65 years old. muscle wasting, atrophy hands; prev mri 2005, ct 2015 TECHNIQUE: Standardized multiplanar fat and water weighted pulse sequences were obtained. COMPARISON: Head CT dated August 09, 2015. MRI of the brain dated June 01 2005. FINDINGS: Reidentification of moderate parenchymal loss in the mid aspect of the right parietal lobe likely due to an old infarct. There is mild cerebral atrophy with widening of the extra-axial spaces and ventricular dilatation. There are a limited number of small white matter hyperintensities, distributed throughout the deep white matter tracts of the cerebral hemispheres, consistent with mild chronic white matter ischemic changes. There is no evidence for recent intracranial ischemia or other cause of cytotoxic edema on diffusion weighted imaging (DWI). Normal T2* images of the brain without demonstrated susceptibility artifact. There is no demonstrated hemosiderin stain. Normal bilateral basal ganglia. Normal thalami. There is no extra-axial fluid accumulation. Normal flow voids within the major intracranial circulation suggesting patency by spin echo criteria. Normal sella turcica, pituitary gland, infundibular stalk, optic chiasm and hypothalamus. Normal tectal plate and pineal gland. Normal midbrain, wilman and medulla. Normal cerebellum. Normal basal cisterns. Normal bilateral temporal bones. Normal bilateral internal auditory canals. No demonstrated orbital abnormality, within the constraints of a routine brain study. Normal visualized paranasal sinuses. Normal calvarium and skull base. Normal visualized soft tissue structures. Normal visualized upper cervical spine. MRI/Brain without Contrast IMPRESSION: 1. Reidentification of moderate parenchymal loss in the mid aspect of the right parietal lobe likely due to an old infarct. 2. No demonstrated acute infarct or intracranial hemorrhage. Electronically Signed: Moe Rivero MD at 19:25 EDT , Service support ,
== END ==
PROVIDERS: PCP Family Medicine; Referring Provider Orthopaedic Surgery; Visit Provider Orthopaedic Surgery
DX: M62.541 Muscle wasting and atrophy, not elsewhere classified, right hand (principal); M62.542 Muscle wasting and atrophy, not elsewhere classified, left hand; G56.21 Lesion of ulnar nerve, right upper limb; M24.542 Contracture, left hand; M24.541 Contracture, right hand; R29.898 Other symptoms and signs involving the musculoskeletal system
CPT/HCPCS: 70551

== ENCOUNTER → 2020-09-09 15:34 | Outpatient (CLI) | payer OTHER, SELFPAY ==
[2020-08-30 10:59] VITALS: BMI 34.4
--- NOTE | 2020-09-09 15:34 | MRI_ITS ---
STUDY: MRI CERVICAL SPINE WITHOUT CONTRAST REASON FOR EXAM: Male, 65 years old. Neck pain TECHNIQUE: Standardized fat and water weighted pulse sequences were obtained in the sagittal and axial planes. COMPARISON: None FINDINGS: Normal foramen magnum and brainstem-cervical cord junction. Normal craniovertebral junction. Normal anterior atlantoaxial articulation. Normal odontoid process. Normal cervical lordosis. Disc desiccation is present at all levels. C2-3: Normal endplates. Normal disc height and morphology. Normal central canal and intervertebral neural foramina. C3-4: Normal endplates. Mild posterior disc space narrowing and minimal annular bulging. Retrolisthesis of C3 on C4 of less than 2 mm. Normal central canal and intervertebral neural foramina. C4-5: Normal endplates. Mild posterior disc space narrowing without disc herniation or bulging. Normal central canal and intervertebral neural foramina. C5-6: Normal endplates. Mild posterior disc space narrowing and annular bulging. Normal central canal and intervertebral neural foramina. C6-7: Normal endplates. Mild posterior disc space narrowing without disc herniation or bulging. Normal central canal and intervertebral neural foramina. C7-T1: Normal endplates. Normal disc height and morphology. Normal central canal and intervertebral neural foramina. Normal cervical cord. There is no demonstrated cervical cord syrinx cavity. Normal visualized soft tissue structures. MRI/Spine Cervical (Routine) IMPRESSION: 1. Multilevel degenerative changes, as described above. 2. No central canal stenosis Electronically Signed: Moe Rivero MD at 17:52 EDT , Service support ,
== END ==
LOC: MRI 15:34
PROVIDERS: PCP Family Medicine; Referring Provider Orthopaedic Surgery; Visit Provider Orthopaedic Surgery
DX: G56.23 Lesion of ulnar nerve, bilateral upper limbs (principal); M24.541 Contracture, right hand; M62.542 Muscle wasting and atrophy, not elsewhere classified, left hand; R29.898 Other symptoms and signs involving the musculoskeletal system
CPT/HCPCS: 72141

== ENCOUNTER → 2020-09-12 15:27 | Outpatient (CLI) | payer OTHER, SELFPAY ==
[2020-08-30 10:59] VITALS: BMI 34.4
--- NOTE | 2020-09-12 15:27 | MRI_ITS ---
STUDY: MRI THORACIC SPINE WITHOUT CONTRAST REASON FOR EXAM: Male, 65 years old. pain TECHNIQUE: Standardized fat and water weighted pulse sequences were obtained in the sagittal and axial planes. COMPARISON: 05/26/2012 MR thoracic spine FINDINGS: Normal kyphosis of the thoracic spine. Mild kyphosis. T1-2, T2-3, T3-4, T4-5, T5-6, T6-7, T7-8, T8-9, T9-10, T10-11, T11-12: Normal endplates. Normal disc hydration, heights and morphology of the corresponding intervertebral discs. Normal central canal and intervertebral neural foramina at the corresponding levels. Normal visualized thoracic cord. Normal conus medullaris that terminates at the . The soft tissue structures are unremarkable. MRI/Spine Thoracic (Routine) IMPRESSION: Mild kyphosis Electronically Signed: Charbel Vance MD at 18:57 EDT , Service support ,
== END ==
LOC: MRI 15:27
PROVIDERS: PCP Family Medicine; Referring Provider Orthopaedic Surgery; Visit Provider Orthopaedic Surgery
DX: G56.23 Lesion of ulnar nerve, bilateral upper limbs (principal); M24.542 Contracture, left hand; M62.541 Muscle wasting and atrophy, not elsewhere classified, right hand; R29.898 Other symptoms and signs involving the musculoskeletal system
CPT/HCPCS: 72146

== ENCOUNTER 2020-09-13 11:00 | Outpatient (RCR) | payer OTHER, SELFPAY ==
[2020-08-25 00:42] VITALS: BP 117/81; PULSE 84; RESP 18; TEMP 36.3
[2020-08-30 10:59] VITALS: BP 128/79; PULSE 74; RESP 16; TEMP 37; BMI 34.4
--- NOTE | 2020-08-30 12:53 | HP.PCM_ITS ---
(1) COPD (chronic obstructive pulmonary disease) Status: Chronic Code(s): J44.9 - Chronic obstructive pulmonary disease, u nspecified (2) History of CVA (cerebrovascular accident) Status: Chronic Code(s): Z86.73 - Personal history of transient ischemic a ttack (TIA), and cerebral infarction without residual deficits (3) Degenerative disc disease Status: Chronic (4) GERD (gastroesophageal reflux disease) Status: Chronic Code(s): K21.9 - Gastro-esophageal reflux disease without esophagitis (5) Diabetes mellitus Status: Chronic Code(s): E11.9 - Type 2 diabetes mellitus without complications (6) Wound, open, elbow Status: Chronic Qualifiers: Encounter type: subsequent encounter Laterality: left Qualified Code(s): S51.002D - Unspecified open wound of left elbow, subsequent encounter Code(s): S51.009A - Unspecified open wound of unspecified elbow, initial encounter (7) Open wnd elbow-complic Status: Chronic Qualifiers: Encounter type: subsequent encounter Laterality: left Qualified Code(s): S51.002D - Unspecified open wound of left elbow, subsequent encounter Code(s): S51.009A - Unspecified open wound of unspecified elbow, initial encounter (8) 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 Code(s): M62.541 - Muscle wasting and atrophy, not elsewhere classified, right hand (9) Chronic diastolic heart failure Status: Chronic Code(s): I50.32 - Chronic diastolic (congestive) heart failure (10) Pure hypercholesterolemia Status: Chronic Code(s): E78.00 - Pure hypercholesterolemia, unspecified (11) Essential hypertension Status: Chronic Code(s): I10 - Essential (primary) hypertension (12) Presence of stent in coronary artery Status: Chronic Code(s): Z95.5 - Presence of coronary angioplasty implant and graft Comment: PTCA /Stent of prox and mid LAD 08/11/02 (13) Aortocoronary bypass status Status: Chronic Code(s): Z95.1 - Presence of aortocoronary bypass graft Comment: CABG x3- BULL to LAD and to DX of LAD, Lt Radial to RCA 10/06/1998 @ [facility] (14) Atherosclerotic heart disease of [place] coronary artery without angina pectoris Status: Chronic Qualifiers: Code(s): I25.10 - Atherosclerotic heart disease of [place] coronary artery without angina pectoris Comment: CABG x3- BULL to LAD and to DX of LAD, Lt Radial to RCA 10/06/1998 @ [facility]; PTCA /Stent of prox and mid LAD 08/11/02 History of Present Illness Date of Service: 08/30/20 Chief Complaint: Left elbow wound History of Wound: This is a 65-year-old male who presented with a chronic wound on his left posterior elbow. It has been present since approximately October 2019. He is uncertain as to the etiology or source of the wound, indicating that it may have started as an insect bite, and was initially noted to have the appearance of a blister. He has been treated by other physicians, including Dr. Raoul Ortez, who referred the patient, and Dr. Epperson, the patient's primary care physician. Apparently there have been episodes of redness and swelling, for which the patient has been placed on several courses of oral antibiotics, including Cipro and others. The patient has not certain of the attics which he has taken in the past. He is currently treating the area with soap and water. He has previously been advised to use Silvadene topically, as well as antibiotic ointment. Despite all such measures, the patient's left elbow wound has failed to heal, prompting referral to our wound care facility. The patient has multiple pre-existing medical problems, including hypertension, coronary artery disease, diabetes mellitus, etc., which are listed below. Past Medical History Past Medical History: Chronic Problems (Last Reviewed 06/10/20 @ 13:[address] Raoul Ortez MD) COPD (chronic obstructive pulmonary disease) (Chronic) History of CVA (cerebrovascular accident) (Chronic) Degenerative disc disease (Chronic) GERD (gastroesophageal reflux disease) (Chronic) Diabetes mellitus (Chronic) Wound, open, elbow (Chronic) Open wnd elbow-complic (Chronic) Thenar muscle atrophy of right hand (Chronic) Chronic diastolic heart failure (Chronic) Pure hypercholesterolemia (Chronic) Essential hypertension (Chronic) Presence of stent in coronary artery (Chronic ~08/11/02) PTCA /Stent of prox and mid LAD 08/11/02 Aortocoronary bypass status (Chronic ~1998) CABG x3- BULL to LAD and to DX of LAD, Lt Radial to RCA 10/06/1998 @ [facility] Atherosclerotic heart disease of [place] coronary artery without angina pectoris (Chronic) CABG x3- BULL to LAD and to DX of LAD, Lt Radial to RCA 10/06/1998 @ [facility]; PTCA /Stent of prox and mid LAD 08/11/02 Surgical History: - - The patient underwent coronary artery bypass surgery in 1998. Three coronary artery stents were placed in 2002. Patient has history of cholecystectomy and hernia repair. Allergies/Adverse Reactions: Allergies clindamycin Adverse Reaction (Unknown, Verified 08/25/20 14:02) Unknown doxepin Adverse Reaction (Verified 08/25/20 14:02) Nausea/Vom/Diarrhea guanfacine Adverse Reaction (Verified 08/25/20 14:02) Nausea/Vom/Diarrhea Penicillins Adverse Reaction (Verified 08/25/20 14:02) Hives Home Medications: Ambulatory Orders Medication Instructions Recorded Duloxetine Hcl [Cymbalta] 60 mg PO BID 08/15/15 Hydromorphone HCl [Dilaudid] 4 mg PO Q6H PRN PRN 08/15/15 Lorazepam [Ativan] 1 mg PO TID PRN PRN 08/15/15 Multivitamins,Ther W-Minerals 1 tab PO DAILY 08/15/15 [Multivitamin With Minerals ([facility])] Niacin [Niacin ER] 500 mg PO QHS 08/15/15 Omeprazole [Prilosec] 20 mg PO DAILY 08/15/15 aspirin 81 mg tablet,delayed 81 mg PO QDAY 06/24/17 release folic acid 1 mg tablet 1 mg PO QDAY 06/24/17 pregabalin 100 mg capsule 100 mg PO BID 06/24/17 quetiapine 100 mg tablet 200 mg PO QHS tab 06/24/17 vitamin B complex 1 tab PO QDAY 06/24/17 melatonin 3 mg tablet 9 mg PO HS PRN tab 02/27/18 topiramate 50 mg tablet 300 mg PO BID tab 02/27/18 oxybutynin chloride 5 mg tablet 15 mg PO QHS tab 07/15/18 erenumab-aooe 70 mg/mL 140 mg SC QMONTH 30 Days #2 ea 03/11/19 subcutaneous auto-injector nitroglycerin 0.4 mg sublingual 0.4 mg SUBLINGUAL Q5M PRN #25 tab 12/17/19 tablet Temazepam 15 mg PO QHS PRN PRN 06/28/20 clopidogrel 75 mg tablet 75 mg PO DAILY #90 tab 08/05/20 pravastatin 80 mg tablet 40 mg PO DAILY #45 tab 08/11/20 metoprolol succinate 50 mg See Rx Instructions .ROUTE 08/12/20 tablet,extended release 24 hr .COMPLEX #90 tab potassium chloride 10 mEq See Rx Instructions .ROUTE 08/12/20 capsule,extended release .COMPLEX #240 cap - Family History Maternal Family History: Family History (Last Reviewed 06/10/20 @ 13:[address] Raoul Ortez MD) Father Heart disease - - The patient's mother at the age of 63 with a history of brain cancer Smoking Status: Never smoker Tobacco Use: Non-smoker Review of Systems Constitutional: Denies: Chills, Fever, Weight Change Eyes: Denies: Pain, Vision Change HEENT: Denies: Difficulty Hearing, Difficulty Swallowing, Sinus Congestion Cardiovascular: Denies: Chest Pain, Palpitations Respiratory: Denies: Cough, Shortness of Breath Gastrointestinal: Denies: Diarrhea, Nausea, Vomiting Genitourinary: Denies: Dysuria, Hematuria Endocrine: Denies: Heat/ Cold Intolerance, Polydipsia, Polyuria Hematologic/ Lymphatic: Denies: Easy Bruising, Easy Bleeding - Physical Exam Vital Signs Temp Pulse Resp BP 98.6 F 74 16 128/79 H 08/30/20 10:59 08/30/20 10:59 08/30/20 10:59 08/30/20 10:59 General: Alert, Oriented x3, Cooperative, No apparent distress, Well developed, Well nourished HEENT: Atraumatic, PERRLA, EOMI, Normocephalic Oral: Moist Mucosa Neck: No JVD Lungs: Normal air movement Abdomen: Non-Distended Extremities: No clubbing, No cyanosis, No edema, No Calf Tenderness, - - Contractures are noted in the fingers of both hands. Addt'l Wound Findings: The wound on the left posterior elbow persists. There is a small opening, measuring approximately 2 to 3 mm in diameter. There is significant undermining, primarily extending inferiorly, for a distance of approximately 14 mm. There is no sign of infection or cellulitis. Wound Measurements and Assessment WC - Nurse 1 - General Ulcer Measurement Start: 08/30/20 10:59 Freq: Status: Active Protocol: Activity Type Activity Date Activity User E-Sign Co-Sign Detail Recorded Client Recorded Date Recorded By Document 08/30/20 10:59 MW [id number] 08/30/20 11:07 MW 08/30/20 10:59 Wound Center Nurse 1 [Ulcer Assessment] #1 left elbow -Current Size (cm) - Length 0.2 -Current Size (cm) - Width 0.4 -Current Size (cm) - Depth 0.6 -Total Square Cm 0.08 -Exudate Amt Small -Exudate Type Serosanguineous -Wound Margin Distinct, Outline Attached -Granulation Amt Large (67-100%) -Granulation Quality Red -Necrosis Amt None Present (0 %) -Texture (Kiana-wound Skin Appearance) Assessed, Localized Edema ,Scarring -Moisture (Kiana-wound Skin Appearance No Abnormality, ) Assessed -Temperature (Kiana-wound Skin No Abnormality Appearance) (Pt Warm) -Tenderness on Palpation (Kiana-wound No Skin Appearance) -Ulcer Cleansing Rinsed/ Irrigated with Saline -Foul Odor after Cleansing No -Anesthetic Used 4% Lidocaine Solution - Nurse 3 - General Ulcer D/C NN Start: 08/30/20 10:59 Freq: Status: Active Protocol: Activity Type Activity Date Activity User E-Sign Co-Sign Detail Recorded Client Recorded Date Recorded By Document 08/30/20 11:42 DL [id number] 08/30/20 11:44 DL 08/30/20 11:42 Wound Care Nurse 3 [Wound Dressing] -Ulcer Cleansing Rinsed/ Irrigated with Saline -Foul Odor after Cleansing No -Primary Dressing Applied Nugauze, Plain Iodoform -Primary Dressing Covered/Secured Dry Gauze & with Roll Gauze, Secured with Tape -Nugauze, Plain Iodoform 05/30 1 [Post Procedure Tolerated] -Treatment Response Procedure Tolerated Well Pain Scale: 0-10 Numeric [Pain] -Is Patient Pain Free? Yes WC - Visit Discharge [Visit Discharge Information] -Discharge Condition Stable -Ambulatory Status Ambulatory -Transportation Private Auto -Notes: Pt refused maria de jesus wrap today. Dressing applied per Lisa Vernon Neurological: Cranial nerves II-XII grossly intact, Neuro grossly intact Psych/Mental Status: Normal Affect, Appropriate, Alert and oriented to time, place, person, mood and affect Debridement Note Post-Debridement Measurements/Treatment - Nurse 3 - General Ulcer D/C NN Start: 08/30/20 10:59 Freq: Status: Active Protocol: Activity Type Activity Date Activity User E-Sign Co-Sign Detail Recorded Client Recorded Date Recorded By Document 08/30/20 11:42 DL [id number] 08/30/20 11:44 DL 08/30/20 11:42 Wound Care Nurse 3 #1 left elbow -Ulcer Cleansing Rinsed/ Irrigated with Saline -Foul Odor after Cleansing No -Primary Dressing Applied Nugauze, Plain Iodoform -Primary Dressing Covered/Secured with Dry Gauze & Roll Gauze, Secured with Tape -Nugauze, Plain Iodoform 05/30 1 Treatment Response Procedure Tolerated Well Pain Scale: 0-10 Numeric Is Patient Pain Free? Yes WC - Visit Discharge Discharge Condition Stable Ambulatory Status Ambulatory Transportation Private Auto Notes: Pt refused maria de jesus wrap today. Dressing applied per Lisa Vernon No debridement was completed today Assessment/Plan Assessment: This is a 65-year-old male with multiple pre-existing medical problems. He presents with a chronic wound on the left posterior elbow. It had been present for more than 6 months. The patient has undergone a battery of diagnostic studies recently, which have been discussed with the patient. An x-ray of the left elbow reveals a normal humerus, radius, and ulnar. Articulations are unremarkable. Lab results are as follows: White blood count 11.6, hemoglobin 16.3, hematocrit 49.2, platelets 183,000, hemoglobin A1c 5.2, glucose 103, BUN 6, creatinine 0.98, total protein 7.6, albumin 3.5, calcium 8.9, AST 16, alkaline phosphatase 126, ALT 23, total bilirubin 0.40, sodium 143, potassium 3.4, chloride 113, serum prealbumin 30.6. Plan: The patient has been advised to implement offloading measures, to avoid pressure and friction to the area involved. Approval was obtained for the implementation of negative pressure wound therapy. The Snap VAC was implemented. However, due to the decreasing width of the wound tract, and difficulties anticipated in placing the Snap VAC, we transitioned to the use of quarter inch Nu Gauze packing on a daily basis. The patient has indicated his desire to proceed with surgical debridement and unroofing, which has been discussed with the patient and his on numerous occasions. This will require insurance preauthorization and scheduling, likely to take several weeks, and is ongoing. A discussion has been undertaken with the patient and his with regard to management options. The punched out morphology of the patient's wound and undermining are of concern, factors which have been discussed with the patient and his with regard to inhibiting the progress of wound healing. These are factors which suggest that surgical unroofing and debridement may be of benefit in expediting the healing of the patient's wound. Optimization of the patient's glycemic control and nutritional intake has been advised. The patient is to return in 4 weeks for reassessment. It is anticipated that we will have a date for his surgical procedure by that time. The patient underwent successful partial left great toe amputation by Dr. Carter, Podiatric Surgeon, on July, in the office setting, and appears to be recovering uneventfully. He is also under the care of an orthopedic surgeon for evaluation and management related to the contractures of his fingers on both hands. Influenza vaccine was not administered today. The patient is not a smoker. The patient weighs 240 pounds. He stands 5 feet 10 inches tall. His BMI is 34.4, which places him in an obese class I category. Weight loss has been recommended, in collaboration with his primary care physician has been advised. Total time: 27 minutes.
[2020-09-13 11:02] VITALS: BP 152/84; PULSE 74; TEMP 36.7; BMI 34.4
--- NOTE | 2020-09-13 11:49 | PCM.WC.HP ---
(1) COPD (chronic obstructive pulmonary disease) Status: Chronic Code(s): J44.9 - Chronic obstructive pulmonary disease, unspecified (2) History of CVA (cerebrovascular accident) Status: Chronic Code(s): Z86.73 - Personal history of transient ischemic attack (TIA), and cerebral infarction without residual deficits (3) Degenerative disc disease Status: Chronic (4) GERD (gastroesophageal reflux disease) Status: Chronic Code(s): K21.9 - Gastro-esophageal reflux disease without esophagitis (5) Diabetes mellitus Status: Chronic Code(s): E11.9 - Type 2 diabetes mellitus without complications (6) Wound, open, elbow Status: Chronic Qualifiers: Encounter type: subsequent encounter Laterality: left Qualified Code(s): S51.002D - Unspecified open wound of left elbow, subsequent encounter Code(s): S51.009A - Unspecified open wound of unspecified elbow, initial encounter (7) Open wnd elbow-complic Status: Chronic Qualifiers: Encounter type: subsequent encounter Laterality: left Qualified Code(s): S51.002D - Unspecified open wound of left elbow, subsequent encounter Code(s): S51.009A - Unspecified open wound of unspecified elbow, initial encounter (8) 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 Code(s): M62.541 - Muscle wasting and atrophy, not elsewhere classified, right hand (9) Chronic diastolic heart failure Status: Chronic Code(s): I50.32 - Chronic diastolic (congestive) heart failure (10) Pure hypercholesterolemia Status: Chronic Code(s): E78.00 - Pure hypercholesterolemia, unspecified (11) Essential hypertension Status: Chronic Code(s): I10 - Essential (primary) hypertension (12) Presence of stent in coronary artery Status: Chronic Code(s): Z95.5 - Presence of coronary angioplasty implant and graft Comment: PTCA /Stent of prox and mid LAD 08/11/02 (13) Aortocoronary bypass status Status: Chronic Code(s): Z95.1 - Presence of aortocoronary bypass graft Comment: CABG x3- BULL to LAD and to DX of LAD, Lt Radial to RCA 10/06/1998 @ [facility] (14) Atherosclerotic heart disease of [place] coronary artery without angina pectoris Status: Chronic Qualifiers: Code(s): I25.10 - Atherosclerotic heart disease of [place] coronary artery without angina pectoris Comment: CABG x3- BULL to LAD and to DX of LAD, Lt Radial to RCA 10/06/1998 @ [facility]; PTCA /Stent of prox and mid LAD 08/11/02 History of Present Illness Date of Service: 09/13/20 Chief Complaint: Left elbow wound History of Wound: This is a 65-year-old male who presented with a chronic wound on his left posterior elbow. It has been present since approximately October 2019. He is uncertain as to the etiology or source of the wound, indicating that it may have started as an insect bite, and was initially noted to have the appearance of a blister. He has been treated by other physicians, including Dr. Raoul Ortez, who referred the patient, and Dr. Epperson, the patient's primary care physician. Apparently there have been episodes of redness and swelling, for which the patient has been placed on several courses of oral antibiotics, including Cipro and others. The patient has not certain of the attics which he has taken in the past. He is currently treating the area with soap and water. He has previously been advised to use Silvadene topically, as well as antibiotic ointment. Despite all such measures, the patient's left elbow wound has failed to heal, prompting referral to our wound care facility. The patient has multiple pre-existing medical problems, including hypertension, coronary artery disease, diabetes mellitus, etc., which are listed below. Past Medical History Past Medical History: Chronic Problems (Last Reviewed 06/10/20 @ 13:[address] Raoul Ortez MD) COPD (chronic obstructive pulmonary disease) (Chronic) History of CVA (cerebrovascular accident) (Chronic) Degenerative disc disease (Chronic) GERD (gastroesophageal reflux disease) (Chronic) Diabetes mellitus (Chronic) Wound, open, elbow (Chronic) Open wnd elbow-complic (Chronic) Thenar muscle atrophy of right hand (Chronic) Chronic diastolic heart failure (Chronic) Pure hypercholesterolemia (Chronic) Essential hypertension (Chronic) Presence of stent in coronary artery (Chronic ~08/11/02) PTCA /Stent of prox and mid LAD 08/11/02 Aortocoronary bypass status (Chronic ~1998) CABG x3- BULL to LAD and to DX of LAD, Lt Radial to RCA 10/06/1998 @ [facility] Atherosclerotic heart disease of [place] coronary artery without angina pectoris (Chronic) CABG x3- BULL to LAD and to DX of LAD, Lt Radial to RCA 10/06/1998 @ [facility]; PTCA /Stent of prox and mid LAD 08/11/02 Surgical History: - - The patient underwent coronary artery bypass surgery in 1998. Three coronary artery stents were placed in 2002. Patient has history of cholecystectomy and hernia repair. Allergies/Adverse Reactions: Allergies clindamycin Adverse Reaction (Unknown, Verified 08/25/20 14:02) Unknown doxepin Adverse Reaction (Verified 08/25/20 14:02) Nausea/Vom/Diarrhea guanfacine Adverse Reaction (Verified 08/25/20 14:02) Nausea/Vom/Diarrhea Penicillins Adverse Reaction (Verified 08/25/20 14:02) Hives Home Medications: Ambulatory Orders Medication Instructions Recorded Duloxetine Hcl [Cymbalta] 60 mg PO BID 08/15/15 Hydromorphone HCl [Dilaudid] 4 mg PO Q6H PRN PRN 08/15/15 Lorazepam [Ativan] 1 mg PO TID PRN PRN 08/15/15 Multivitamins,Ther W-Minerals 1 tab PO DAILY 08/15/15 [Multivitamin With Minerals ([facility])] Niacin [Niacin ER] 500 mg PO QHS 08/15/15 Omeprazole [Prilosec] 20 mg PO DAILY 08/15/15 aspirin 81 mg tablet,delayed 81 mg PO QDAY 06/24/17 release folic acid 1 mg tablet 1 mg PO QDAY 06/24/17 pregabalin 100 mg capsule 100 mg PO BID 06/24/17 quetiapine 100 mg tablet 200 mg PO QHS tab 06/24/17 vitamin B complex 1 tab PO QDAY 06/24/17 melatonin 3 mg tablet 9 mg PO HS PRN tab 02/27/18 topiramate 50 mg tablet 300 mg PO BID tab 02/27/18 oxybutynin chloride 5 mg tablet 15 mg PO QHS tab 07/15/18 erenumab-aooe 70 mg/mL 140 mg SC QMONTH 30 Days #2 ea 03/11/19 subcutaneous auto-injector nitroglycerin 0.4 mg sublingual 0.4 mg SUBLINGUAL Q5M PRN #25 tab 12/17/19 tablet Temazepam 15 mg PO QHS PRN PRN 06/28/20 clopidogrel 75 mg tablet 75 mg PO DAILY #90 tab 08/05/20 pravastatin 80 mg tablet 40 mg PO DAILY #45 tab 08/11/20 metoprolol succinate 50 mg See Rx Instructions .ROUTE 08/12/20 tablet,extended release 24 hr .COMPLEX #90 tab potassium chloride 10 mEq See Rx Instructions .ROUTE 08/12/20 capsule,extended release .COMPLEX #240 cap diazepam 2 mg tablet 2 mg PO TID PRN #7 tablet 09/06/20 - Family History Maternal Family History: Family History (Last Reviewed 06/10/20 @ 13:[address] Raoul Ortez MD) Father Heart disease - - The patient's mother at the age of 63 with a history of brain cancer Smoking Status: Never smoker Tobacco Use: Non-smoker Review of Systems Constitutional: Denies: Chills, Fever, Weight Change Eyes: Denies: Pain, Vision Change HEENT: Denies: Difficulty Hearing, Difficulty Swallowing, Sinus Congestion Cardiovascular: Denies: Chest Pain, Palpitations Respiratory: Denies: Cough, Shortness of Breath Gastrointestinal: Denies: Diarrhea, Nausea, Vomiting Genitourinary: Denies: Dysuria, Hematuria Endocrine: Denies: Heat/ Cold Intolerance, Polydipsia, Polyuria Hematologic/ Lymphatic: Denies: Easy Bruising, Easy Bleeding - Physical Exam Vital Signs Temp Pulse Resp BP 98.1 F 74 16 152/84 H 09/13/20 11:02 09/13/20 11:02 08/30/20 10:59 09/13/20 11:02 General: Alert, Oriented x3, Cooperative, No apparent distress, Well developed, Well nourished HEENT: Atraumatic, PERRLA, EOMI, Normocephalic Oral: Moist Mucosa Neck: No JVD Lungs: Normal air movement Abdomen: Non-Distended Extremities: No clubbing, No cyanosis, No edema, - - The punctate opening on the left posterior elbow persists. There is some associated induration. Probing reveals the depth tangentially and inferiorly to extend approximately 22 mm. There is no obvious sign of infection. Wound Measurements and Assessment WC - Nurse 1 - General Ulcer Measurement Start: 08/30/20 10:59 Freq: Status: Active Protocol: Activity Type Activity Date Activity User E-Sign Co-Sign Detail Recorded Client Recorded Date Recorded By Document 09/13/20 11:02 KENNA [id number] 09/13/20 11:08 KR 09/13/20 11:02 Wound Center Nurse 1 [Ulcer Assessment] #1 left elbow -Current Size (cm) - Length 0.4 -Current Size (cm) - Width 0.4 -Current Size (cm) - Depth 0.3 -Total Square Cm 0.16 -Exudate Amt Medium -Exudate Type Serosanguineous -Wound Margin Distinct, Outline Attached -Granulation Amt Small (1-33%) -Granulation Quality [place] -Necrosis Amt Medium (34-66%) -Necrotic Tissue Type Adherent Slough -Texture (Kiana-wound Skin Appearance) Assessed, Scarring -Moisture (Kiana-wound Skin Appearance No Abnormality, ) Assessed -Color (Kiana-wound Skin Appearance) No Abnormality, Assessed -Temperature (Kiana-wound Skin No Abnormality Appearance) (Pt Warm) -Tenderness on Palpation (Kiana-wound No Skin Appearance) -Ulcer Cleansing Rinsed/ Irrigated with Saline -Foul Odor after Cleansing No -Anesthetic Used 4% Lidocaine Solution - Nurse 3 - General Ulcer D/C NN Start: 08/30/20 10:59 Freq: Status: Active Protocol: Activity Type Activity Date Activity User E-Sign Co-Sign Detail Recorded Client Recorded Date Recorded By Document 09/13/20 11:32 KENNA [id number] 09/13/20 11:32 KENNA 09/13/20 11:32 Wound Care Nurse 3 [Wound Dressing] -Ulcer Cleansing Rinsed/ Irrigated with Saline -Primary Dressing Covered/Secured Dry Gauze, with Secured with Tape Pain Scale: 0-10 Numeric [Pain] -Is Patient Pain Free? Yes - Visit Discharge [Visit Discharge Information] -Discharge Condition Stable -Ambulatory Status Ambulatory -Transportation Private Auto -Accompanied by Neurological: Cranial nerves II-XII grossly intact, Neuro grossly intact Psych/Mental Status: Normal Affect, Appropriate, Alert and oriented to time, place, person, mood and affect Debridement Note Post-Debridement Measurements/Treatment - Nurse 2 - General Ulcer CM Notes Start: 08/30/20 10:59 Freq: Status: Active Protocol: Activity Type Activity Date Activity User E-Sign Co-Sign Detail Recorded Client Recorded Date Recorded By Document 08/30/20 16:09 CONSTANTINO [id number] 08/30/20 16:10 PL 08/30/20 16:09 Wound Center Nurse 2 #1 left elbow -Procedure Performed No -Post Debridement (cm) - Length 0.2 -Post Debridement (cm) - Width 0.4 -Post Debridement (cm) - Depth 1.4 -Total Square (Post) (cm) 0.08 -Wound/Ulcer Outcome Not Healed WC - Nurse 3 - General Ulcer D/C NN Start: 08/30/20 10:59 Freq: Status: Active Protocol: Activity Type Activity Date Activity User E-Sign Co-Sign Detail Recorded Client Recorded Date Recorded By Document 08/30/20 11:42 DL [id number] 08/30/20 11:44 DL Document 09/13/20 11:32 KR [id number] 09/13/20 11:32 KR 08/30/20 09/13/20 11:42 11:32 Wound Care Nurse 3 #1 left elbow -Ulcer Cleansing Rinsed/ Rinsed/ Irrigated with Irrigated with Saline Saline -Foul Odor after Cleansing No -Primary Dressing Applied Nugauze, Plain Iodoform -Primary Dressing Covered/Secured with Dry Gauze & Dry Gauze, Roll Gauze, Secured with Secured with Tape Tape -Nugauze, Plain Iodoform 1/ 1 Treatment Response Procedure Tolerated Well Pain Scale: 0-10 Numeric Is Patient Pain Free? Yes Yes WC - Visit Discharge Discharge Condition Stable Stable Ambulatory Status Ambulatory Ambulatory Transportation Private Auto Private Auto Accompanied by Notes: Pt refused maria de jesus wrap today. Dressing applied per Lisa Vernon Assessment/Plan Active Problems (Last Reviewed 06/10/20 @ 13:[address] Raoul Ortez MD) COPD (chronic obstructive pulmonary disease) (Chronic) History of CVA (cerebrovascular accident) (Chronic) Degenerative disc disease (Chronic) GERD (gastroesophageal reflux disease) (Chronic) Diabetes mellitus (Chronic) Wound, open, elbow (Chronic) Open wnd elbow-complic (Chronic) Thenar muscle atrophy of right hand (Chronic) Chronic diastolic heart failure (Chronic) Pure hypercholesterolemia (Chronic) Essential hypertension (Chronic) Presence of stent in coronary artery (Chronic ~08/11/02) PTCA /Stent of prox and mid LAD 08/11/02 Aortocoronary bypass status (Chronic ~1998) CABG x3- BULL to LAD and to DX of LAD, Lt Radial to RCA 10/06/1998 @ [facility] Atherosclerotic heart disease of [place] coronary artery without angina pectoris (Chronic) CABG x3- BULL to LAD and to DX of LAD, Lt Radial to RCA 10/06/1998 @ [facility]; PTCA /Stent of prox and mid LAD 08/11/02 Assessment: This is a 65-year-old male with multiple pre-existing medical problems. He presents with a chronic wound on the left posterior elbow. It had been present for more than 6 months. The patient has undergone a battery of diagnostic studies recently, which have been discussed with the patient. An x-ray of the left elbow reveals a normal humerus, radius, and ulnar. Articulations are unremarkable. Lab results are as follows: White blood count 11.6, hemoglobin 16.3, hematocrit 49.2, platelets 183,000, hemoglobin A1c 5.2, glucose 103, BUN 6, creatinine 0.98, total protein 7.6, albumin 3.5, calcium 8.9, AST 16, alkaline phosphatase 126, ALT 23, total bilirubin 0.40, sodium 143, potassium 3.4, chloride 113, serum prealbumin 30.6. The patient's recent MRI scans of the brain and spine have been reviewed. Plan: The patient has been advised to continue offloading measures, to avoid pressure and friction to the involved left elbow area. We are to continue the use of quarter-inch Nu Gauze packing on a daily basis. The patient has indicated his desire to proceed with surgical debridement and unroofing, which has been discussed with the patient and his on numerous occasions. This will require insurance preauthorization and scheduling, likely to take several weeks, and is ongoing. A discussion has been undertaken with the patient and his with regard to management options. The punched out morphology of the patient's wound and undermining are of concern, factors which have been discussed with the patient and his with regard to inhibiting the progress of wound healing. These are factors which suggest that surgical unroofing and debridement may be of benefit in expediting the healing of the patient's wound. It is noted, however, that the depth of the wound appears to have increased, and is now approximately 2 cm in depth, extending distally and tangentially. There is question as to whether the elbow joint could be involved. The patient is currently under evaluation by his orthopedic surgeon, Dr. Lynda Mar, with regard to other orthopedic issues. A discussion is planned with the patient's orthopedic surgeon to collaborate with anticipated surgical intervention, and to determine whether any imaging studies may be warranted prior to surgical unroofing and debridement. Optimization of the patient's glycemic control and nutritional intake has been advised. The patient is to return in 2 weeks for reassessment. It is anticipated that we will have a date for his surgical procedure by that time. The patient underwent successful partial left great toe amputation by Dr. Carter, Podiatric Surgeon, on July, in the office setting, and appears to be recovering uneventfully. Influenza vaccine was not administered today. The patient is not a smoker. The patient weighs 240 pounds. He stands 5 feet 10 inches tall. His BMI is 34.4, which places him in an obese class I category. Weight loss has been recommended, in collaboration with his primary care physician has been advised. Total time: 29 minutes.
--- NOTE | 2020-09-15 22:19 | PCM.WC.HP ---
(1) COPD (chronic obstructive pulmonary disease) Status: Chronic Code(s): J44.9 - Chronic obstructive pulmonary disease, unspecified (2) History of CVA (cerebrovascular accident) Status: Chronic Code(s): Z86.73 - Personal history of transient ischemic attack (TIA), and cerebral infarction without residual deficits (3) Degenerative disc disease Status: Chronic (4) GERD (gastroesophageal reflux disease) Status: Chronic Code(s): K21.9 - Gastro-esophageal reflux disease without esophagitis (5) Diabetes mellitus Status: Chronic Code(s): E11.9 - Type 2 diabetes mellitus without complications (6) Wound, open, elbow Status: Chronic Qualifiers: Encounter type: subsequent encounter Laterality: left Qualified Code(s): S51.002D - Unspecified open wound of left elbow, subsequent encounter Code(s): S51.009A - Unspecified open wound of unspecified elbow, initial encounter (7) Open wnd elbow-complic Status: Chronic Qualifiers: Encounter type: subsequent encounter Laterality: left Qualified Code(s): S51.002D - Unspecified open wound of left elbow, subsequent encounter Code(s): S51.009A - Unspecified open wound of unspecified elbow, initial encounter (8) 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 Code(s): M62.541 - Muscle wasting and atrophy, not elsewhere classified, right hand (9) Chronic diastolic heart failure Status: Chronic Code(s): I50.32 - Chronic diastolic (congestive) heart failure (10) Pure hypercholesterolemia Status: Chronic Code(s): E78.00 - Pure hypercholesterolemia, unspecified (11) Essential hypertension Status: Chronic Code(s): I10 - Essential (primary) hypertension (12) Presence of stent in coronary artery Status: Chronic Code(s): Z95.5 - Presence of coronary angioplasty implant and graft Comment: PTCA /Stent of prox and mid LAD 08/11/02 (13) Aortocoronary bypass status Status: Chronic Code(s): Z95.1 - Presence of aortocoronary bypass graft Comment: CABG x3- BULL to LAD and to DX of LAD, Lt Radial to RCA 10/06/1998 @ [facility] (14) Atherosclerotic heart disease of [place] coronary artery without angina pectoris Status: Chronic Qualifiers: Code(s): I25.10 - Atherosclerotic heart disease of mor[place] coronary artery without angina pectoris Comment: CABG x3- BULL to LAD and to DX of LAD, Lt Radial to RCA 10/06/1998 @ [facility]; PTCA /Stent of prox and mid LAD 08/11/02 History of Present Illness Date of Service: 09/15/20 Chief Complaint: Left elbow wound History of Wound: This is a 65-year-old male who presented with a chronic wound on his left posterior elbow. It has been present since approximately October 2019. He is uncertain as to the etiology or source of the wound, indicating that it may have started as an insect bite, and was initially noted to have the appearance of a blister. He has been treated by other physicians, including Dr. Raoul Ortez, who referred the patient, and Dr. Epperson, the patient's primary care physician. Apparently there have been episodes of redness and swelling, for which the patient has been placed on several courses of oral antibiotics, including Cipro and others. The patient has not certain of the attics which he has taken in the past. He is currently treating the area with soap and water. He has previously been advised to use Silvadene topically, as well as antibiotic ointment. Despite all such measures, the patient's left elbow wound has failed to heal, prompting referral to our wound care facility. The patient has multiple pre-existing medical problems, including hypertension, coronary artery disease, diabetes mellitus, etc., which are listed below. Past Medical History Past Medical History: Chronic Problems (Last Reviewed 06/10/20 @ 13:[address] Raoul Ortez MD) COPD (chronic obstructive pulmonary disease) (Chronic) History of CVA (cerebrovascular accident) (Chronic) Degenerative disc disease (Chronic) GERD (gastroesophageal reflux disease) (Chronic) Diabetes mellitus (Chronic) Wound, open, elbow (Chronic) Open wnd elbow-complic (Chronic) Thenar muscle atrophy of right hand (Chronic) Chronic diastolic heart failure (Chronic) Pure hypercholesterolemia (Chronic) Essential hypertension (Chronic) Presence of stent in coronary artery (Chronic ~08/11/02) PTCA /Stent of prox and mid LAD 08/11/02 Aortocoronary bypass status (Chronic ~1998) CABG x3- BULL to LAD and to DX of LAD, Lt Radial to RCA 10/06/1998 @ [facility] Atherosclerotic heart disease of 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 Three coronary artery stents were placed in 2002. Patient has history of cholecystectomy and hernia repair. Allergies/Adverse Reactions: Allergies clindamycin Adverse Reaction (Unknown, Verified 08/25/20 14:02) Unknown doxepin Adverse Reaction (Verified 08/25/20 14:02) Nausea/Vom/Diarrhea guanfacine Adverse Reaction (Verified 08/25/20 14:02) Nausea/Vom/Diarrhea Penicillins Adverse Reaction (Verified 08/25/20 14:02) Hives Home Medications: Ambulatory Orders Medication Instructions Recorded Duloxetine Hcl [Cymbalta] 60 mg PO BID 08/15/15 Hydromorphone HCl [Dilaudid] 4 mg PO Q6H PRN PRN 08/15/15 Lorazepam [Ativan] 1 mg PO TID PRN PRN 08/15/15 Multivitamins,Ther W-Minerals 1 tab PO DAILY 08/15/15 [Multivitamin With Minerals ([facility])] Niacin [Niacin ER] 500 mg PO QHS 08/15/15 Omeprazole [Prilosec] 20 mg PO DAILY 08/15/15 aspirin 81 mg tablet,delayed 81 mg PO QDAY 06/24/17 release folic acid 1 mg tablet 1 mg PO QDAY 06/24/17 pregabalin 100 mg capsule 100 mg PO BID 06/24/17 quetiapine 100 mg tablet 200 mg PO QHS tab 06/24/17 vitamin B complex 1 tab PO QDAY 06/24/17 melatonin 3 mg tablet 9 mg PO HS PRN tab 02/27/18 topiramate 50 mg tablet 300 mg PO BID tab 02/27/18 oxybutynin chloride 5 mg tablet 15 mg PO QHS tab 07/15/18 erenumab-aooe 70 mg/mL 140 mg SC QMONTH 30 Days #2 ea 03/11/19 subcutaneous auto-injector nitroglycerin 0.4 mg sublingual 0.4 mg SUBLINGUAL Q5M PRN #25 tab 12/17/19 tablet Temazepam 15 mg PO QHS PRN PRN 06/28/20 clopidogrel 75 mg tablet 75 mg PO DAILY #90 tab 08/05/20 pravastatin 80 mg tablet 40 mg PO DAILY #45 tab 08/11/20 metoprolol succinate 50 mg See Rx Instructions .ROUTE 08/12/20 tablet,extended release 24 hr .COMPLEX #90 tab potassium chloride 10 mEq See Rx Instructions .ROUTE 08/12/20 capsule,extended release .COMPLEX #240 cap diazepam 2 mg tablet 2 mg PO TID PRN #7 tablet 09/06/20 - Family History Maternal Family History: Family History (Last Reviewed 06/10/20 @ 13:[address] Raoul Ortez MD) Father Heart disease - - The patient's mother at the age of 63 with a history of brain cancer Smoking Status: Never smoker Tobacco Use: Non-smoker - Physical Exam Vital Signs Temp Pulse Resp BP 98.1 F 74 16 152/84 H 09/13/20 11:02 09/13/20 11:02 08/30/20 10:59 09/13/20 11:02 Wound Measurements and Assessment WC - Nurse 1 - General Ulcer Measurement Start: 08/30/20 10:59 Freq: Status: Active Protocol: Activity Type Activity Date Activity User E-Sign Co-Sign Detail Recorded Client Recorded Date Recorded By Document 09/13/20 11:02 KENNA [id number] 09/13/20 11:08 KENNA 09/13/20 11:02 Wound Center Nurse 1 [Ulcer Assessment] #1 left elbow -Current Size (cm) - Length 0.4 -Current Size (cm) - Width 0.4 -Current Size (cm) - Depth 0.3 -Total Square Cm 0.16 -Exudate Amt Medium -Exudate Type Serosanguineous -Wound Margin Distinct, Outline Attached -Granulation Amt Small (1-33%) -Granulation Quality [place] -Necrosis Amt Medium (34-66%) -Necrotic Tissue Type Adherent Slough -Texture (Kiana-wound Skin Appearance) Assessed, Scarring -Moisture (Kiana-wound Skin Appearance No Abnormality, ) Assessed -Color (Kiana-wound Skin Appearance) No Abnormality, Assessed -Temperature (Kiana-wound Skin No Abnormality Appearance) (Pt Warm) -Tenderness on Palpation (Kiana-wound No Skin Appearance) -Ulcer Cleansing Rinsed/ Irrigated with Saline -Foul Odor after Cleansing No -Anesthetic Used 4% Lidocaine Solution WC - Nurse 2 - General Ulcer CM Notes Start: 08/30/20 10:59 Freq: Status: Active Protocol: Activity Type Activity Date Activity User E-Sign Co-Sign Detail Recorded Client Recorded Date Recorded By Document 09/13/20 12:05 PL [id number] 09/13/20 12:05 PL 09/13/20 12:05 Wound Center Nurse 2 [Procedure/Treatment] -Post Debridement (cm) - Length 0.4 -Post Debridement (cm) - Width 0.4 -Post Debridement (cm) - Depth 2.2 -Total Square (Post) (cm) 0.16 [See Physician Procedure note for Specifics] Pain Scale: 0-10 Numeric [Pain] -Is Patient Pain Free? Yes - Nurse 3 - General Ulcer D/C NN Start: 08/30/20 10:59 Freq: Status: Active Protocol: Activity Type Activity Date Activity User E-Sign Co-Sign Detail Recorded Client Recorded Date Recorded By Document 09/13/20 11:32 KR [id number] 09/13/20 11:32 KR 09/13/20 11:32 Wound Care Nurse 3 [Wound Dressing] #1 left elbow -Ulcer Cleansing Rinsed/ Irrigated with Saline -Primary Dressing Covered/Secured Dry Gauze, with Secured with Tape Pain Scale: 0-10 Numeric [Pain] -Is Patient Pain Free? Yes - Visit Discharge [Visit Discharge Information] -Discharge Condition Stable -Ambulatory Status Ambulatory -Transportation Private Auto -Accompanied by Debridement Note Post-Debridement Measurements/Treatment - Nurse 2 - General Ulcer CM Notes Start: 08/30/20 10:59 Freq: Status: Active Protocol: Activity Type Activity Date Activity User E-Sign Co-Sign Detail Recorded Client Recorded Date Recorded By Document 08/30/20 16:09 PL [id number] 08/30/20 16:10 PL Document 09/13/20 12:05 PL [id number] 09/13/20 12:05 PL 08/30/20 09/13/20 16:09 12:05 Wound Center Nurse 2 #1 left elbow -Procedure Performed No -Post Debridement (cm) - Length 0.2 0.4 -Post Debridement (cm) - Width 0.4 0.4 -Post Debridement (cm) - Depth 1.4 2.2 -Total Square (Post) (cm) 0.08 0.16 -Wound/Ulcer Outcome Not Healed Pain Scale: 0-10 Numeric Is Patient Pain Free? Yes WC - Nurse 3 - General Ulcer D/C NN Start: 08/30/20 10:59 Freq: Status: Active Protocol: Activity Type Activity Date Activity User E-Sign Co-Sign Detail Recorded Client Recorded Date Recorded By Document 08/30/20 11:42 DL [id number] 08/30/20 11:44 DL Document 09/13/20 11:32 KR [id number] 09/13/20 11:32 KR 08/30/20 09/13/20 11:42 11:32 Wound Care Nurse 3 #1 left elbow -Ulcer Cleansing Rinsed/ Rinsed/ Irrigated with Irrigated with Saline Saline -Foul Odor after Cleansing No -Primary Dressing Applied Nugauze, Plain Iodoform -Primary Dressing Covered/Secured with Dry Gauze & Dry Gauze, Roll Gauze, Secured with Secured with Tape Tape -Nugauze, Plain Iodoform 1/ 1 Treatment Response Procedure Tolerated Well Pain Scale: 0-10 Numeric Is Patient Pain Free? Yes Yes WC - Visit Discharge Discharge Condition Stable Stable Ambulatory Status Ambulatory Ambulatory Transportation Private Auto Private Auto Accompanied by Notes: Pt refused maria de jesus wrap today. Dressing applied per Lisa Vernon Assessment/Plan Active Problems (Last Reviewed 06/10/20 @ 13:[address] Raoul Ortez MD) COPD (chronic obstructive pulmonary disease) (Chronic) History of CVA (cerebrovascular accident) (Chronic) Degenerative disc disease (Chronic) GERD (gastroesophageal reflux disease) (Chronic) Diabetes mellitus (Chronic) Wound, open, elbow (Chronic) Open wnd elbow-complic (Chronic) Thenar muscle atrophy of right hand (Chronic) Chronic diastolic heart failure (Chronic) Pure hypercholesterolemia (Chronic) Essential hypertension (Chronic) Presence of stent in coronary artery (Chronic ~08/11/02) PTCA /Stent of prox and mid LAD 08/11/02 Aortocoronary bypass status (Chronic ~1998) CABG x3- BULL to LAD and to DX of LAD, Lt Radial to RCA 10/06/1998 @ [facility] Atherosclerotic heart disease of mor[place] coronary artery without angina pectoris (Chronic) CABG x3- BULL to LAD and to DX of LAD, Lt Radial to RCA 10/06/1998 @ [facility]; PTCA /Stent of prox and mid LAD 08/11/02 Assessment: This is a 65-year-old male with multiple pre-existing medical problems. He presents with a chronic wound on the left posterior elbow. It had been present for more than 6 months. The patient has undergone a battery of diagnostic studies recently, which have been discussed with the patient. An x-ray of the left elbow reveals a normal humerus, radius, and ulnar. Articulations are unremarkable. Lab results are as follows: White blood count 11.6, hemoglobin 16.3, hematocrit 49.2, platelets 183,000, hemoglobin A1c 5.2, glucose 103, BUN 6, creatinine 0.98, total protein 7.6, albumin 3.5, calcium 8.9, AST 16, alkaline phosphatase 126, ALT 23, total bilirubin 0.40, sodium 143, potassium 3.4, chloride 113, serum prealbumin 30.6. The patient's recent MRI scans of the brain and spine have been reviewed. Plan: I have spoken by telephone with the patient's orthopedic surgeon, Dr. Lynda Bartlett. 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 The optimal means of imaging was discussed, and the decision was made to proceed with MRI imaging with contrast. There is concern that there may be involvement of the underlying elbow joint, or possibly bony involvement in the form of osteomyelitis. An MRI scan with contrast would be expected to provide further information with regard to these possibilities. An attempt will be made to pre-authorize such a diagnostic imaging study, and to proceed once approved. Furthermore, it is anticipated that the patient will ultimately benefit from surgical intervention. It has been anticipated that the patient would undergo surgical unroofing, wound excision, and debridement of the draining sinus and wound cavity. Efforts are underway to obtain insurance pre-authorization. However, there is concern that underlying involvement of the joint space or osteomyelitis may require involvement of the orthopedic service. Therefore, it is felt that a multidisciplinary approach to any such intervention may be of benefit. Dr. Bartlett has informed me that she will be leaving her practice within the next 1 to 2 weeks, and relocating elsewhere. She has stated that her partners do not generally focus their attention on the management of elbow pathology. Therefore, it may be necessary to find other surgical providers to assist in the comanagement of the patient's left elbow issues, depending upon the findings on anticipated imaging studies and intraoperative findings. Patient has been advised to continue offloading measures, to avoid pressure and friction to the involved left elbow area. We are to continue the use of quarter-inch Nu Gauze packing on a daily basis. The patient has indicated his desire to proceed with surgical debridement and unroofing, which has been discussed with the patient and his on numerous occasions. This will require insurance preauthorization and scheduling, likely to take several weeks, and is ongoing. A discussion has been undertaken with the patient and his with regard to management options. The punched out morphology of the patient's wound and undermining are of concern, factors which have been discussed with the patient and his with regard to inhibiting the progress of wound healing. These are factors which suggest that surgical unroofing and debridement may be of benefit in expediting the healing of the patient's wound. It is noted, however, that the depth of the wound appears to have increased, and is now approximately 2 cm in depth, extending distally and tangentially. There is question as to whether the elbow joint could be involved. The patient is currently under evaluation by his orthopedic surgeon, Dr. Lynda Bartlett, with regard to other orthopedic issues. A discussion is planned with the patient's orthopedic surgeon to collaborate with anticipated surgical intervention, and to determine whether any imaging studies may be warranted prior to surgical unroofing and debridement. Optimization of the patient's glycemic control and nutritional intake has been advised. The patient is to return in 2 weeks for reassessment. It is anticipated that we will have a date for his surgical procedure by that time. The patient underwent successful partial left great toe amputation by Dr. Carter, Podiatric Surgeon, on July, in the office setting, and appears to be recovering uneventfully. Influenza vaccine was not administered today. The patient is not a smoker. The patient weighs 240 pounds. He stands 5 feet 10 inches tall. His BMI is 34.4, which places him in an obese class I category. Weight loss has been recommended, in collaboration with his primary care physician has been advised.
== END 2020-09-23 23:59 ==
LOC: WC 11:00
PROVIDERS: PCP Family Medicine; Referring Provider Family Medicine; Visit Provider Surgery
DX: S51.002A Unspecified open wound of left elbow, initial encounter (principal); E11.9 Type 2 diabetes mellitus without complications; E66.9 Obesity, unspecified; E78.00 Pure hypercholesterolemia, unspecified; I25.10 Atherosclerotic heart disease of native coronary artery without angina pectoris; I11.0 Hypertensive heart disease with heart failure; I50.32 Chronic diastolic (congestive) heart failure; J44.9 Chronic obstructive pulmonary disease, unspecified; K21.9 Gastro-esophageal reflux disease without esophagitis; Z68.34 Body mass index [BMI] 34.0-34.9, adult; Z79.82 Long term (current) use of aspirin; Z82.49 Family history of ischemic heart disease and other diseases of the circulatory system; Z86.73 Personal history of transient ischemic attack (TIA), and cerebral infarction without residual deficits; Z88.0 Allergy status to penicillin; Z95.1 Presence of aortocoronary bypass graft; Z95.5 Presence of coronary angioplasty implant and graft
CPT/HCPCS: 99213; G0463

== ENCOUNTER 2020-10-18 11:00 | Outpatient (RCR) | payer OTHER, SELFPAY ==
[2020-09-24 00:41] VITALS: BP 152/84; PULSE 74; RESP 16; TEMP 36.7
[2020-09-27 11:12] VITALS: BP 124/66; PULSE 69; RESP 16; TEMP 35.7; BMI 34.4
--- NOTE | 2020-09-27 14:33 | PCM.WC.HP ---
History of Present Illness Date of Service: 09/27/20 Chief Complaint: Left elbow wound History of Wound: This is a 65-year-old male who presented with a chronic wound on his left posterior elbow. It has been present since approximately October 2019. He is uncertain as to the etiology or source of the wound, indicating that it may have started as an insect bite, and was initially noted to have the appearance of a blister. He has been treated by other physicians, including Dr. Raoul Ortez, who referred the patient, and Dr. Epperson, the patient's primary care physician. Apparently there have been episodes of redness and swelling, for which the patient has been placed on several courses of oral antibiotics, including Cipro and others. The patient has not certain of the attics which he has taken in the past. He is currently treating the area with soap and water. He has previously been advised to use Silvadene topically, as well as antibiotic ointment. Despite all such measures, the patient's left elbow wound has failed to heal, prompting referral to our wound care facility. The patient has multiple pre-existing medical problems, including hypertension, coronary artery disease, diabetes mellitus, etc., which are listed below. [facility] Medical History (Updated 08/30/20 @ 13:[address] Tha Dean MD) Abscess of left elbow Atherosclerotic heart disease of [place] coronary artery without angina pectoris Bipolar 1 disorder Chronic diastolic heart failure COPD (chronic obstructive pulmonary disease) CVA (cerebral vascular accident) Degenerative disc disease Essential hypertension GERD (gastroesophageal reflux disease) Hypokalemia Pure hypercholesterolemia Home Medications duloxetine 60 mg PO BID 08/15/15 [History Last Taken Unknown] hydromorphone 4 mg PO Q6H PRN PRN 08/15/15 [History Last Taken Unknown] lorazepam 1 mg PO TID PRN PRN 08/15/15 [History Last Taken Unknown] multivitamin,cc-zdym-[id number] 1 tab PO DAILY 08/15/15 [History Last Taken Unknown] niacin 500 mg PO QHS 08/15/15 [History Last Taken Unknown] omeprazole 20 mg PO DAILY 08/15/15 [History Last Taken Unknown] aspirin 81 mg tablet,delayed release 81 mg PO QDAY 06/24/17 [History Last Taken Unknown] folic acid 1 mg tablet 1 mg PO QDAY 06/24/17 [History Last Taken Unknown] pregabalin 100 mg capsule 100 mg PO BID 06/24/17 [History Last Taken Unknown] quetiapine 100 mg tablet 200 mg PO QHS tab 06/24/17 [History Last Taken Unknown] vitamin B complex 1 tab PO QDAY 06/24/17 [History Last Taken Unknown] melatonin 3 mg tablet 9 mg PO HS PRN tab 02/27/18 [History Last Taken Unknown] topiramate 50 mg tablet 300 mg PO BID tab 02/27/18 [History Last Taken Unknown] oxybutynin chloride 5 mg tablet 15 mg PO QHS tab 07/15/18 [History Last Taken Unknown] erenumab-aooe 70 mg/mL subcutaneous auto-injector 140 mg SC QMONTH 30 Days #2 ea 03/11/19 [History Last Taken Unknown] nitroglycerin 0.4 mg sublingual tablet 0.4 mg SUBLINGUAL Q5M PRN #25 tab 12/17/19 [Rx Last Taken Unknown] temazepam 15 mg PO QHS PRN PRN 06/28/20 [History Last Taken Unknown] clopidogrel 75 mg tablet 75 mg PO DAILY #90 tab 08/05/20 [Rx Last Taken Unknown] pravastatin 80 mg tablet 40 mg PO DAILY #45 tab 08/11/20 [Rx Last Taken Unknown] metoprolol succinate 50 mg tablet,extended release 24 hr See Rx Instructions .ROUTE .COMPLEX #90 tab 08/12/20 [Rx Last Taken Unknown] potassium chloride 10 mEq capsule,extended release See Rx Instructions .ROUTE .COMPLEX #240 cap 08/12/20 [Rx Last Taken Unknown] diazepam 2 mg tablet 2 mg PO TID PRN #7 tablet 09/06/20 [Rx Last Taken Unknown] Allergy/AdvReac Type Severity Reaction Status Date / Time clindamycin AdvReac Unknown Unknown Verified 08/25/20 14:02 doxepin AdvReac Nausea/Vom/ Verified 08/25/20 14:02 Diarrhea guanfacine AdvReac Nausea/Vom/ Verified 08/25/20 14:02 Diarrhea Penicillins AdvReac Hives Verified 08/25/20 14:02 Family History Father Heart disease Surgical History (Updated 06/28/20 @ 10:[address] Tha Dean MD) Aortocoronary bypass status (~1998) History of cholecystectomy History of hernia repair History of skin graft Presence of stent in coronary artery (~08/11/02) Status post debridement (~1993) Social History (Updated 08/25/20 @ 15:[address] Lynda Bartlett, DO) Smoking Status: Never smoker alcohol intake: never caffeine: Yes Type: carbonated beverages Number of servings: 2 ROS Constitutional Constitutional: Denies anorexia, change in weight, chills, fever(s), malaise or night sweats Eyes Eyes: Denies change in vision, double vision or eye pain ENT HEENT: Denies dysphagia, epistaxis, headache(s), hearing loss, sinus pain, sinus pressure or sore throat Cardiovascular Cardiovascular: Denies chest pain or palpitations Respiratory/Chest Respiratory/Chest: Reports hemoptysis; Denies pain on inspiration, shortness of breath at rest or wheezing Gastrointestinal Gastrointestinal: Denies abdominal pain, hematemesis, hematochezia or nausea Genitourinary Genitourinary: Denies dysuria or hematuria Musculoskeletal Musculoskeletal: Denies loss of height Neurologic Neurologic: Denies headache(s), loss of vision or seizures Endocrine Endocrinology: Denies polyuria Vital Signs Vital Signs Vital Signs: 09/27/20 11:12 Temperature 96.3 F L Temperature Source Temporal Pulse Rate 69 Respiratory Rate 16 Blood Pressure 124/66 H Blood Pressure Mean 85 Blood Pressure Source Monitor Blood Pressure Position Sitting Blood Pressure Location Right Arm Oxygen Delivery Method Room Air Physical Exam Const alert, oriented x3, no apparent distress and well nourished General Appearance: cooperative and well developed HEENT normocephalic, EAC's normal and moist oral mucous membranes Head and Scalp: atraumatic Nose: external nose normal and nares normal External Ear: external ears normal Eyes PERRL and EOMs intact bilaterally General Eye: normal appearance of both eyes Neck no JVD General: trachea midline Resp normal respiratory effort and no use of accessory muscles Effort and Inspection: able to speak in complete sentences GI non-distended Extremity no calf tenderness Extremity Narrative: The wound on the patient's left posterior elbow persists. It consists of a small opening, several millimeters in diameter, and a sinus tract that extends approximately 2 cm distally, tracking toward the left elbow joint. There is no obvious sign of infection or cellulitis. General Extremity: Negative for clubbing or cyanosis Neuro oriented x3 and CN's II-XII intact bilaterally Psych Appearance: grossly normal and appropriate Attitude: calm Speech: normal speech Thought Process: normal thought process Debridement Note Debridement Note Post-Debridement Measurements and Additional Note: Post-Debridement Measurements/Treatment - Nurse 2 - General Ulcer CM Notes Start: 09/27/20 11:12 Freq: Status: Active Protocol: Activity Type Activity Date Activity User E-Sign Co-Sign Detail Recorded Client Recorded Date Recorded By Document 09/27/20 12:15 [id number] 09/27/20 12:16 PL 09/27/20 12:15 Wound Center Nurse 2 #1 left elbow -Procedure Performed No -Post Debridement (cm) - Length 0.3 -Post Debridement (cm) - Width 0.3 -Post Debridement (cm) - Depth 0.4 -Total Square (Post) (cm) 0.09 -Tunneling Yes -Tunneling Position (O'clock) 6 -Tunneling Distance (cm) 2.0 Pain Scale: 0-10 Numeric Is Patient Pain Free? Yes - Nurse 3 - General Ulcer D/C NN Start: 09/27/20 11:12 Freq: Status: Active Protocol: Activity Type Activity Date Activity User E-Sign Co-Sign Detail Recorded Client Recorded Date Recorded By Document 09/27/20 11:53 [facility] [id number] 09/27/20 11:53 [facility] 09/27/20 11:53 Wound Care Nurse 3 #1 left elbow -Ulcer Cleansing Rinsed/ Irrigated with Saline -Foul Odor after Cleansing No -Primary Dressing Applied Other -Other Dressing NUGAUZE -Primary Dressing Covered/Secured with Dry Gauze, Secured with Tape Treatment Response Procedure Tolerated Well Pain Scale: 0-10 Numeric Is Patient Pain Free? Yes - Visit Discharge Discharge Condition Stable Ambulatory Status Ambulatory Transportation Private Auto Accompanied by No debridement was completed: No debridement was completed today Assessment & Plan Assessment/Plan (1) COPD (chronic obstructive pulmonary disease): Status: Chronic Code(s): J44.9 - Chronic obstructive pulmonary disease, unspecified (2) History of CVA (cerebrovascular accident): Status: Chronic Code(s): Z86.73 - Personal history of transient ischemic attack (TIA), and cerebral infarction without residual deficits (3) Degenerative disc disease: Status: Chronic (4) GERD (gastroesophageal reflux disease): Status: Chronic Code(s): K21.9 - Gastro-esophageal reflux disease without esophagitis (5) Diabetes mellitus: Status: Chronic Code(s): E11.9 - Type 2 diabetes mellitus without complications (6) Wound, open, elbow: Status: Chronic Code(s): S51.009A - Unspecified open wound of unspecified elbow, initial encounter Qualifiers: Encounter type: subsequent encounter Laterality: left Qualified Code(s): S51.002D - Unspecified open wound of left elbow, subsequent encounter (7) Open wnd elbow-complic: Status: Chronic Code(s): S51.009A - Unspecified open wound of unspecified elbow, initial encounter Qualifiers: Encounter type: subsequent encounter Laterality: left Qualified Code(s): S51.002D - Unspecified open wound of left elbow, subsequent encounter (8) 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 Code(s): M62.541 - Muscle wasting and atrophy, not elsewhere classified, right hand (9) Chronic diastolic heart failure: Status: Chronic Code(s): I50.32 - Chronic diastolic (congestive) heart failure (10) Pure hypercholesterolemia: Status: Chronic Code(s): E78.00 - Pure hypercholesterolemia, unspecified (11) Essential hypertension: Status: Chronic Code(s): I10 - Essential (primary) hypertension (12) Presence of stent in coronary artery: Status: Chronic Code(s): Z95.5 - Presence of coronary angioplasty implant and graft (13) Aortocoronary bypass status: Status: Chronic Code(s): Z95.1 - Presence of aortocoronary bypass graft (14) Atherosclerotic heart disease of [place] coronary artery without angina pectoris: Status: Chronic Code(s): I25.10 - Atherosclerotic heart disease of [place] coronary artery without angina pectoris (15) Hypokalemia: Status: Acute Code(s): E87.6 - Hypokalemia Plan: Current measures are to be continued. These include offloading measures. Packing of the wound is to continue on a daily basis, with the assistance of the patient's . We are to continue using 1/4 inch Nu Gauze on a daily basis. It is thought that the patient's wound is unlikely to heal by secondary intention, and that surgical intervention will be required. I have recently spoken by telephone with the patient's orthopedic surgeon, Dr. Lynda Bartlett. Concerns have been expressed as to the possibility that the wound tract extends to underlying bone or joint, and that orthopedic management may be required. Dr. Bartlett is in the process of leaving her practice to relocate to [place], [place]. It may be necessary to collaborate with another local orthopedic surgeon, if possible. Discussion has also been undertaken with Dr. Bartlett as to imaging modalities which may provide further insight as to the nature of the underlying wound and its relationship to underlying skeletal structures. An MRI scan has been ordered. Insurance preauthorization is pending. Once imaging has been completed, a final decision will be made as to the role of surgical unroofing, debridement, and excision. Such surgical intervention may best be undertaken with a multidisciplinary approach. Recruitment of other surgical providers in the comanagement of the patient's wound will be considered. Patient is return in 1 week for reassessment. The recent implementation of a new electronic medical record system may result in errors, omissions, or inaccuracies in this talk. Total time: 28 minutes.
--- NOTE | 2020-10-07 13:06 | MRI_ITS ---
ACR Level 3 findings have been noted. An addendum which confirms receipt of the report will follow. STUDY: MRI LEFT ELBOW WITH AND WITHOUT CONTRAST REASON FOR EXAM: Chronic nonhealing wound of the left elbow, draining sinus/wound, evaluate for elbow joint infection, osteomyelitis. TECHNIQUE: Standardized fat and water weighted pulse sequences were obtained in all 3 orthogonal planes before and after intravenous administration of 20 mL of Dotarem. COMPARISON: Radiographs 06/28/2020. FINDINGS: Normal radio-capitellum articulation. Normal radial collateral ligamentous complex. Normal common extensor tendon. Normal ulnotrochlear articulation. Normal ulnar collateral ligamentous complex. Normal common flexor tendon. There is contrast enhancing inflammation in the cubital tunnel surrounding the ulnar nerve (postcontrast T1 axial images 8-14). Normal biceps tendon and distal insertion. Normal lacertus fibrosis. Normal brachialis musculotendinous insertion. Normal triceps tendon and teno-osseous insertion. Normal olecranon process. There is a small fluid collection adjacent to the medial epicondyle (T2 axial images 11, 12) measuring 1.3 x 1.1 cm (AP x length) with an overlying sinus tract (inversion recovery coronal image 9) and contrast enhancement of the thick wall (postcontrast T1 coronal image 9) consistent with a small abscess. There is bone edema of the adjacent medial epicondyle (T1 coronal images 9-11) with the corresponding decreased T1 bone marrow signal (T1 coronal image 11) and contrast enhancement (postcontrast T1 coronal images 8-10) suggestive of osteomyelitis. There is edema in the subcutis adipose space at the ulnar aspect of the elbow. There is no elbow joint effusion. MRI/Upper Ext Joint Only W/WO Cont IMPRESSION: Osteomyelitis of the medial epicondyle with a small overlying soft tissue abscess. Inflammation extending into the cubital tunnel surrounding the ulnar nerve. No elbow joint effusion to indicate septic arthritis. Electronically Signed: Osbaldo Mcgrath MD at 7:27 EDT Tel , Service support ,
[2020-10-07 15:21] LABS: CREATININE FINGERSTICK 1.1 mg/dL (0.70-1.30); EGFR FINGERSTICK > 60.0000 mL/min (>60)
[2020-10-11 11:00] VITALS: BP 128/70; PULSE 79; TEMP 36.6; BMI 34.4
--- NOTE | 2020-10-11 12:09 | PCM.WC.HP ---
History of Present Illness Date of Service: 10/11/20 Chief Complaint: Left elbow wound History of Wound: This is a 65-year-old male who presented with a chronic wound on his left posterior elbow. It had been present since approximately October 2019. He is uncertain as to the etiology or source of the wound, indicating that it may have started as an insect bite, and was initially noted to have the appearance of a blister. He was treated by other physicians, including Dr. Raoul Ortez, who referred the patient, and Dr. Epperson, the patient's primary care physician. Apparently there have been episodes of redness and swelling, for which the patient has been placed on several courses of oral antibiotics, including Cipro and others. The patient was not certain of which antibiotics he has taken in the past. He had previously been advised to use Silvadene topically, as well as antibiotic ointment. Despite all such measures, the patient's left elbow wound failed to heal, prompting referral to our wound care facility. The patient has multiple pre-existing medical problems, including hypertension, coronary artery disease, diabetes mellitus, etc. [facility], LATER [facility] Medical History (Updated 10/11/20 @ 12:[address] Tha Dean MD) Abscess of left elbow Atherosclerotic heart disease of [place] coronary artery without angina pectoris Bipolar 1 disorder Chronic diastolic heart failure COPD (chronic obstructive pulmonary disease) CVA (cerebral vascular accident) Degenerative disc disease Essential hypertension GERD (gastroesophageal reflux disease) Hypokalemia Pure hypercholesterolemia Home Medications duloxetine 60 mg PO BID 08/15/15 [History Last Taken Unknown] hydromorphone 4 mg PO Q6H PRN PRN 08/15/15 [History Last Taken Unknown] lorazepam 1 mg PO TID PRN PRN 08/15/15 [History Last Taken Unknown] multivitamin,xo-xisn-hcjwzhlu 1 tab PO DAILY 08/15/15 [History Last Taken Unknown] niacin 500 mg PO QHS 08/15/15 [History Last Taken Unknown] omeprazole 20 mg PO DAILY 08/15/15 [History Last Taken Unknown] aspirin 81 mg tablet,delayed release 81 mg PO QDAY 06/24/17 [History Last Taken Unknown] folic acid 1 mg tablet 1 mg PO QDAY 06/24/17 [History Last Taken Unknown] pregabalin 100 mg capsule 100 mg PO BID 01/29/18 [History Last Taken Unknown] quetiapine 100 mg tablet 200 mg PO QHS tab 06/24/17 [History Last Taken Unknown] vitamin B complex 1 tab PO QDAY 06/24/17 [History Last Taken Unknown] melatonin 3 mg tablet 9 mg PO HS PRN tab 02/27/18 [History Last Taken Unknown] topiramate 50 mg tablet 300 mg PO BID tab 02/27/18 [History Last Taken Unknown] oxybutynin chloride 5 mg tablet 15 mg PO QHS tab 07/15/18 [History Last Taken Unknown] erenumab-aooe 70 mg/mL subcutaneous auto-injector 140 mg SC QMONTH 30 Days #2 ea 03/11/19 [History Last Taken Unknown] nitroglycerin 0.4 mg sublingual tablet 0.4 mg SUBLINGUAL Q5M PRN #25 tab 12/17/19 [Rx Last Taken Unknown] temazepam 15 mg PO QHS PRN PRN 06/28/20 [History Last Taken Unknown] clopidogrel 75 mg tablet 75 mg PO DAILY #90 tab 08/05/20 [Rx Last Taken Unknown] pravastatin 80 mg tablet 40 mg PO DAILY #45 tab 08/11/20 [Rx Last Taken Unknown] metoprolol succinate 50 mg tablet,extended release 24 hr See Rx Instructions .ROUTE .COMPLEX #90 tab 08/12/20 [Rx Last Taken Unknown] potassium chloride 10 mEq capsule,extended release See Rx Instructions .ROUTE .COMPLEX #240 cap 08/12/20 [Rx Last Taken Unknown] diazepam 2 mg tablet 2 mg PO TID PRN #7 tablet 09/06/20 [Rx Last Taken Unknown] Allergy/AdvReac Type Severity Reaction Status Date / Time clindamycin AdvReac Unknown Unknown Verified 08/25/20 14:02 doxepin AdvReac Nausea/Vom/ Verified 08/25/20 14:02 Diarrhea guanfacine AdvReac Nausea/Vom/ Verified 08/25/20 14:02 Diarrhea Penicillins AdvReac Hives Verified 08/25/20 14:02 Family History Father Heart disease Surgical History (Updated 06/28/20 @ 10:[address] Tha Daen MD) Aortocoronary bypass status (~1998) History of cholecystectomy History of hernia repair History of skin graft Presence of stent in coronary artery (~08/11/02) Status post debridement (~1993) Social History (Updated 08/25/20 @ 15:[address] Lynda Bartlett, DO) Smoking Status: Never smoker alcohol intake: never caffeine: Yes Type: carbonated beverages Number of servings: 2 Vital Signs Vital Signs Vital Signs: 10/11/20 11:00 Temperature 97.9 F Temperature Source Temporal Pulse Rate 79 Blood Pressure 128/70 H Blood Pressure Mean 89 Blood Pressure Source Monitor Blood Pressure Position Semi-Fowlers Blood Pressure Location Right Arm Physical Exam Const alert, oriented x3, no apparent distress and average body habitus General Appearance: cooperative, comfortable and well developed Orientation / Consciousness: awake, oriented to person, oriented to place and oriented to time HEENT normocephalic Head and Scalp: normal to inspection, normocephalic and atraumatic External Ear: external ears normal Eyes PERRL and EOMs intact bilaterally General Eye: normal appearance of both eyes Resp normal respiratory effort and no use of accessory muscles Effort and Inspection: able to speak in complete sentences Extremity no calf tenderness General Extremity: Negative for clubbing or cyanosis Skin Wound Narrative: The wound on the left posterior elbow persists. It consists of a relatively small external opening, 2 to 3 mm in diameter, with a sinus tract which extends distally towards the elbow joint. Using a probe, the depth of the tract appears to be approximately 24 mm. There is no obvious drainage. Erythema and induration surround the external opening. Cultures for both aerobic and anaerobic bacterial growth have been obtained today. However, due to the small diameter of the sinus tract, the culture swabs could not be inserted to the entire depth of the tract, which may affect the isolation of bacterial growth and fail to isolate the presence of bacterial infection. Neuro oriented x3 and CN's II-XII intact bilaterally Speech: speech normal Psych Appearance: grossly normal and appropriate Attitude: calm and engaged Activity / Motor Behavior: appropriate eye contact Speech: normal speech Thought Process: normal thought process Attention / Concentration: attention grossly intact Debridement Note Debridement Note Post-Debridement Measurements and Additional Note: Post-Debridement Measurements/Treatment CHRIS - Nurse 1 - General Ulcer Assessment Start: 09/27/20 11:12 Freq: Status: Active Protocol: TRAVIS Activity Type Activity Date Activity User E-Sign Co-Sign Detail Recorded Client Recorded Date Recorded By Document 09/27/20 11:12 [id number] [id number] 09/27/20 11:18 [facility] Document 10/11/20 11:00 KR [id number] 10/11/20 11:02 09/27/20 10/11/20 11:12 11:00 - Today's Visit Information Type of service Follow-up Visit Follow-up Visit (Physician/EQUITY MANAGER (Physician/EQUITY MANAGER ) ) Arrival Mode Ambulatory Ambulatory Transfer Assistance None Accompanied by Patient Identification Verified (Name & Yes Yes ) Patient Requires Transmission-Based No Precautions Height and Weight Body Mass Index (BMI) 34.4 34.4 BMI Classification Obese Obese Vital Signs Temperature (97.8 F-99.1 F) 96.3 F L 97.9 F Temperature Source Temporal Temporal Pulse Rate (60-100) 69 79 Pulse Location Monitor Monitor Respiratory Rate (12-18) 16 Respiratory rate source Ausculation Oxygen Delivery Method Room Air Blood Pressure (90/60-120/80) 124/66 H 128/70 H Blood Pressure Mean 85 89 Source Monitor Monitor Position Sitting Semi-Fowlers Blood Pressure Location Right Arm Right Arm History Since Last Visit- (Skip if this is Patient's initial visit) Have you changed medications since your No No last visit? Any new allergies or adverse reactions No No Had a fall/change in ADL's that may No No increase risk of falls Signs or symptoms of abuse and/or No No neglect since last visit Have you been in the hospital since your No No last visit? Has dressing in place as prescribed Yes Yes Has compression in place as prescribed N/A N/A Has offloadiing in place as prescribed N/A N/A Experienced any changes in pain level or No No management Left Footwear Regular Shoe Regular Shoe Right Footwear Regular Shoe Regular Shoe Pain Scale: 0-10 Numeric Is Patient Pain Free? Yes Yes - Nurse 1 - General Ulcer Measurement Start: 09/27/20 11:12 Freq: Status: Active Protocol: Activity Type Activity Date Activity User E-Sign Co-Sign Detail Recorded Client Recorded Date Recorded By Document 09/27/20 11:12 [facility] [id number] 09/27/20 11:18 [facility] Document 10/11/20 11:00 KR [id number] 10/11/20 11:02 09/27/20 10/11/20 11:12 11:00 Wound Center Nurse 1 #1 left elbow -Combined with other wound No -Current Size (cm) - Length 0.3 0.2 -Current Size (cm) - Width 0.2 0.2 -Current Size (cm) - Depth 0.4 0.3 -Total Square Cm 0.06 0.04 -Photo Taken No -Epithelialization None Present -Tunneling No -Undermining/Tunneling No -Circular Undermining Yes -Exudate Amt Large Small -Exudate Type Serosanguineous Yellow/Green -Wound Margin Distinct, Distinct, Outline Outline Attached Attached -Granulation Amt Large (67-100%) Medium (34-66%) -Granulation Quality Red Red -Slough/Fibrin No -Necrosis Amt None Present (0 Medium (34-66%) %) -Necrotic Tissue Type Adherent Slough -Texture (Kiana-wound Skin Appearance) Assessed, Assessed, Localized Edema Scarring -Moisture (Kiana-wound Skin Appearance) Assessed No Abnormality, Assessed -Color (Kiana-wound Skin Appearance) Assessed, No Abnormality, Erythema Assessed -Temperature (Kiana-wound Skin No Abnormality No Abnormality Appearance) (Pt Warm) (Pt Warm) -Tenderness on Palpation (Kiana-wound Yes Skin Appearance) -Ulcer Cleansing Rinsed/ Rinsed/ Irrigated with Irrigated with Saline Saline -Foul Odor after Cleansing No No -Anesthetic Used 4% Lidocaine 5% Lidocaine Solution Gel WC - Nurse 2 - General Ulcer CM Notes Start: 09/27/20 11:12 Freq: Status: Active Protocol: Activity Type Activity Date Activity User E-Sign Co-Sign Detail Recorded Client Recorded Date Recorded By Document 09/27/20 12:15 PL [id number] 09/27/20 12:16 PL 09/27/20 12:15 Wound Center Nurse 2 -Procedure Performed No -Post Debridement (cm) - Length 0.3 -Post Debridement (cm) - Width 0.3 -Post Debridement (cm) - Depth 0.4 -Total Square (Post) (cm) 0.09 -Tunneling Yes -Tunneling Position (O'clock) 6 -Tunneling Distance (cm) 2.0 Pain Scale: 0-10 Numeric Is Patient Pain Free? Yes WC - Nurse 3 - General Ulcer D/C NN Start: 09/27/20 11:12 Freq: Status: Active Protocol: Activity Type Activity Date Activity User E-Sign Co-Sign Detail Recorded Client Recorded Date Recorded By Document 09/27/20 11:53 [facility] [id number] 09/27/20 11:53 [facility] Document 10/11/20 11:37 KR [id number] 10/11/20 11:44 KR 09/27/20 10/11/20 11:53 11:37 Wound Care Nurse 3 #1 left elbow -Ulcer Cleansing Rinsed/ Rinsed/ Irrigated with Irrigated with Saline Saline -Foul Odor after Cleansing No -Primary Dressing Applied Other -Other Dressing NUGAUZE -Primary Dressing Covered/Secured with Dry Gauze, Dry Gauze, Secured with Secured with Tape Tape Treatment Response Procedure Tolerated Well Pain Scale: 0-10 Numeric Is Patient Pain Free? Yes Yes WC - Visit Discharge Discharge Condition Stable Stable Ambulatory Status Ambulatory Ambulatory Transportation Private Auto Accompanied by Radiology Impression Upper Extremity MRI 10/07/20 13:06 IMPRESSION: Osteomyelitis of the medial epicondyle with a small overlying soft tissue abscess. Inflammation extending into the cubital tunnel surrounding the ulnar nerve. No elbow joint effusion to indicate septic arthritis. Electronically Signed: Osbaldo Mcgrath MD at 7:27 EDT Tel , Service support , ADDENDUM: 10/11/20 1020 IMPRESSION: Osteomyelitis of the medial epicondyle with a small overlying soft tissue abscess. Inflammation extending into the cubital tunnel surrounding the ulnar nerve. No elbow joint effusion to indicate septic arthritis. N.B. : ERIC Rios, confirmed on 10/11/2020 10:13:59 (ET) that the healthcare facility has received the radiology report. Electronically Signed: Osbaldo Mcgrath MD at 7:27 EDT Tel , Service support , Assessment & Plan Assessment/Plan (1) Osteomyelitis of left elbow: (2) Abscess of left elbow: (3) Open wnd elbow-complic: QUALIFIERS: Encounter type: subsequent encounter Laterality: left Qualified Code(s): S51.002D - Unspecified open wound of left elbow, subsequent encounter (4) Wound, open, elbow: QUALIFIERS: Encounter type: subsequent encounter Laterality: left Qualified Code(s): S51.002D - Unspecified open wound of left elbow, subsequent encounter (5) COPD (chronic obstructive pulmonary disease): (6) History of CVA (cerebrovascular accident): (7) Degenerative disc disease: (8) GERD (gastroesophageal reflux disease): (9) Diabetes mellitus: (10) Thenar muscle atrophy of right hand: (11) Chronic diastolic heart failure: (12) Pure hypercholesterolemia: (13) Essential hypertension: (14) Presence of stent in coronary artery: (15) Aortocoronary bypass status: (16) Atherosclerotic heart disease of [place] coronary artery without angina pectoris: (17) Hypokalemia: PLAN: The results of the patient's left elbow MRI, available only as of this morning, shed further light on the nature of the patient's left elbow wound. It is noted that there is osteomyelitis involving the medial epicondyle with a small overlying soft tissue abscess. This finding has been suspected, but has awaited definitive diagnostic imaging for confirmation. As has been previously documented, it is felt that a multidisciplinary approach is warranted in the management of the patient's left elbow pathology. The finding of osteomyelitis suggests the need for involvement of the Orthopedic Surgery service. Dr. Lynda Bartlett is the patient's current Orthopedic Surgeon, and is involved with respect to other medical problems. It is known that Dr. Bartlett will be leaving her local practice, and relocating to [place], [place]. The patient has an appointment with Dr. Bartlett later today, and is to discuss issues related to subsequent care, and acknowledgment that she will soon be relocating to another nearby community. It is hoped that the patient will be given options as to whether he might follow Dr. Bartlett to her new practice, transfer to the care of her current partners, or to seek orthopedic advisement elsewhere. At this juncture, simple unroofing, wound excision, and soft tissue debridement will likely be inadequate with respect to the underlying osteomyelitis, and a multidisciplinary approach is felt to be optimal. Swab cultures for aerobic and anaerobic bacterial growth have been obtained today, and cultures will be awaited. We are to seek consultation with Dr. Sabino Smith, Infectious Disease specialist, for his recommendations as to antibiotic management. In the interim, the patient and his are to continue packing the wound cavity with 1/4 inch Nu Gauze packing on a daily basis. Finally, we will consider whether there might be a role for hyperbaric oxygen therapy and the eventual management of the patient's osteomyelitis. The [facility]. By that time, it is hoped that a more comprehensive management plan will be taking form, utilizing a multidisciplinary approach. Total time: 29 minutes.
[2020-10-18 10:57] VITALS: BP 138/79; PULSE 76; RESP 18; TEMP 36.7; BMI 34.4
--- NOTE | 2020-10-18 11:51 | PCM.WC.HP ---
History of Present Illness Date of Service: 10/18/20 Chief Complaint: Chronic left elbow wound with osteomyelitis History of Wound: This is a 65-year-old male who presented with a chronic wound on his left posterior elbow. It had been present since approximately October 2019. He is uncertain as to the etiology or source of the wound, indicating that it may have started as an insect bite, and was initially noted to have the appearance of a blister. He was treated by other physicians, including Dr. Raoul Ortez, who referred the patient, and Dr. Epperson, the patient's primary care physician. Apparently there have been episodes of redness and swelling, for which the patient has been placed on several courses of oral antibiotics, including Cipro and others. The patient was not certain of which antibiotics he has taken in the past. He had previously been advised to use Silvadene topically, as well as antibiotic ointment. Despite all such measures, the patient's left elbow wound failed to heal, prompting referral to our wound care facility. The patient has multiple pre-existing medical problems, including hypertension, coronary artery disease, diabetes mellitus, COPD, etc. [facility] Medical History (Updated 10/11/20 @ 16:[address] Lynda Bartlett, ) Abscess of left elbow Atherosclerotic heart disease of [place] coronary artery without angina pectoris Bipolar 1 disorder Chronic diastolic heart failure COPD (chronic obstructive pulmonary disease) CVA (cerebral vascular accident) Degenerative disc disease Essential hypertension GERD (gastroesophageal reflux disease) Hypokalemia Pure hypercholesterolemia Home Medications duloxetine 60 mg PO BID 08/15/15 [History Last Taken Unknown] hydromorphone 4 mg PO Q6H PRN PRN 08/15/15 [History Last Taken Unknown] lorazepam 1 mg PO TID PRN PRN 08/15/15 [History Last Taken Unknown] multivitamin,ms-onhi-ppqifncv 1 tab PO DAILY 08/15/15 [History Last Taken Unknown] niacin 500 mg PO QHS 08/15/15 [History Last Taken Unknown] omeprazole 20 mg PO DAILY 08/15/15 [History Last Taken Unknown] aspirin 81 mg tablet,delayed release 81 mg PO QDAY 06/24/17 [History Last Taken Unknown] folic acid 1 mg tablet 1 mg PO QDAY 06/24/17 [History Last Taken Unknown] pregabalin 100 mg capsule 100 mg PO BID 06/24/17 [History Last Taken Unknown] quetiapine 100 mg tablet 200 mg PO QHS tab 06/24/17 [History Last Taken Unknown] vitamin B complex 1 tab PO QDAY 06/24/17 [History Last Taken Unknown] melatonin 3 mg tablet 9 mg PO HS PRN tab 02/27/18 [History Last Taken Unknown] topiramate 50 mg tablet 300 mg PO BID tab 02/27/18 [History Last Taken Unknown] oxybutynin chloride 5 mg tablet 15 mg PO QHS tab 07/15/18 [History Last Taken Unknown] erenumab-aooe 70 mg/mL subcutaneous auto-injector 140 mg SC QMONTH 30 Days #2 ea 03/11/19 [History Last Taken Unknown] nitroglycerin 0.4 mg sublingual tablet 0.4 mg SUBLINGUAL Q5M PRN #25 tab 12/17/19 [Rx Last Taken Unknown] temazepam 15 mg PO QHS PRN PRN 06/28/20 [History Last Taken Unknown] clopidogrel 75 mg tablet 75 mg PO DAILY #90 tab 08/05/20 [Rx Last Taken Unknown] pravastatin 80 mg tablet 40 mg PO DAILY #45 tab 08/11/20 [Rx Last Taken Unknown] metoprolol succinate 50 mg tablet,extended release 24 hr See Rx Instructions .ROUTE .COMPLEX #90 tab 08/12/20 [Rx Last Taken Unknown] potassium chloride 10 mEq capsule,extended release See Rx Instructions .ROUTE .COMPLEX #240 cap 08/12/20 [Rx Last Taken Unknown] diazepam 2 mg tablet 2 mg PO TID PRN #7 tablet 09/06/20 [Rx Last Taken Unknown] Allergy/AdvReac Type Severity Reaction Status Date / Time clindamycin AdvReac Unknown Unknown Verified 08/25/20 14:02 doxepin AdvReac Nausea/Vom/ Verified 08/25/20 14:02 Diarrhea guanfacine AdvReac Nausea/Vom/ Verified 08/25/20 14:02 Diarrhea Penicillins AdvReac Hives Verified 08/25/20 14:02 Family History Father Heart disease Surgical History (Updated 06/28/20 @ 10:[address] Tha Dean MD) Aortocoronary bypass status (~1998) History of cholecystectomy History of hernia repair History of skin graft Presence of stent in coronary artery (~08/11/02) Status post debridement (~1993) Social History (Updated 08/25/20 @ 15:[address] Lynda Bartlett, ) Smoking Status: Never smoker alcohol intake: never caffeine: Yes Type: carbonated beverages Number of servings: 2 Vital Signs Vital Signs Vital Signs: 10/18/20 10:57 Temperature 98.1 F Temperature Source Temporal Pulse Rate 76 Respiratory Rate 18 Blood Pressure 138/79 H Blood Pressure Mean 98 Oxygen Delivery Method Room Air Weight Weight: 240 lb Body Mass Index (BMI) 34.4 Physical Exam Const alert, oriented x3, no apparent distress and well nourished General Appearance: cooperative, comfortable and well developed Orientation / Consciousness: awake, oriented to person, oriented to place and oriented to time HEENT normocephalic and head/scalp atraumatic Head and Scalp: normal to inspection, normocephalic and atraumatic External Ear: external ears normal Eyes PERRL and EOMs intact bilaterally Resp normal respiratory effort and no use of accessory muscles Effort and Inspection: able to speak in complete sentences Extremity no calf tenderness Extremity Narrative: Tremors are noted in the patient's lower extremities. General Extremity: Negative for clubbing or cyanosis Left Upper Extremity: elbow joint inspection (A small, punctate opening is noted on the left posterior elbow, measuring approximately 2 to 3 millimeters in diameter. Exploration with a sterile probe demonstrates the depth of the tunneled wound to be approximately 2.5 cm. It appears to extend towards the elbow joint. A small amount of yellowi) Neuro oriented x3, CN's II-XII intact bilaterally and moves all extremities Speech: speech normal Psych mental status grossly normal Appearance: grossly normal and appropriate Activity / Motor Behavior: appropriate eye contact Speech: normal speech Thought Process: normal thought process Debridement Note Debridement Note Post-Debridement Measurements and Additional Note: Post-Debridement Measurements/Treatment WC - Nurse 1 - General Ulcer Assessment Start: 09/27/20 11:12 Freq: Status: Active Protocol: TRAVIS Activity Type Activity Date Activity User E-Sign Co-Sign Detail Recorded Client Recorded Date Recorded By Document 09/27/20 11:12 BMF [id number] 09/27/20 11:18 BMF Document 10/11/20 11:00 KR [id number] 10/11/20 11:02 KR Document 10/18/20 10:57 PL [id number] 10/18/20 11:02 PL 09/27/20 10/11/20 10/18/20 11:12 11:00 10:57 - Today's Visit Information Type of service Follow-up Visit Follow-up Visit Follow-up Visit (Physician/TEXTURING MACHINE FIXER (Physician/TEXTURING MACHINE FIXER (Physician/TEXTURING MACHINE FIXER ) ) ) Arrival Mode Ambulatory Ambulatory Ambulatory Transfer Assistance None None Accompanied by Patient Identification Verified (Name & Yes Yes Yes ) Patient Requires Transmission-Based No No Precautions Safety Precautions NA Height and Weight Body Mass Index (BMI) 34.4 34.4 34.4 BMI Classification Obese Obese Obese Vital Signs Temperature (97.8 F-99.1 F) 96.3 F L 97.9 F 98.1 F Temperature Source Temporal Temporal Temporal Pulse Rate (60-100) 69 79 76 Pulse Location Monitor Monitor Respiratory Rate (12-18) 16 18 Respiratory rate source Ausculation Oxygen Delivery Method Room Air Room Air Blood Pressure (90/60-120/80) 124/66 H 128/70 H 138/79 H Blood Pressure Mean 85 89 98 Source Monitor Monitor Position Sitting Semi-Fowlers Blood Pressure Location Right Arm Right Arm History Since Last Visit- (Skip if this is Patient's initial visit) Have you changed medications since your No No No last visit? Any new allergies or adverse reactions No No No Had a fall/change in ADL's that may No No No increase risk of falls Signs or symptoms of abuse and/or No No neglect since last visit Have you been in the hospital since your No No No last visit? Has dressing in place as prescribed Yes Yes Yes Has compression in place as prescribed N/A N/A N/A Has offloadiing in place as prescribed N/A N/A N/A Experienced any changes in pain level or No No No management Left Footwear Regular Shoe Regular Shoe Right Footwear Regular Shoe Regular Shoe Pain Scale: 0-10 Numeric Is Patient Pain Free? Yes Yes Yes - Nurse 1 - General Ulcer Measurement Start: 09/27/20 11:12 Freq: Status: Active Protocol: Activity Type Activity Date Activity User E-Sign Co-Sign Detail Recorded Client Recorded Date Recorded By Document 09/27/20 11:12 [facility] [id number] 09/27/20 11:18 BMF Document 10/11/20 11:00 KR [id number] 10/11/20 11:02 KR Document 10/18/20 10:57 PL [id number] 10/18/20 11:02 PL 09/27/20 10/11/20 10/18/20 11:12 11:00 10:57 Wound Center Nurse 1 #1 left elbow -Combined with other wound No No -Current Size (cm) - Length 0.3 0.2 0.2 -Current Size (cm) - Width 0.2 0.2 0.2 -Current Size (cm) - Depth 0.4 0.3 0.5 -Total Square Cm 0.06 0.04 0.04 -Photo Taken No No -Epithelialization None Present None Present -Tunneling No No -Undermining/Tunneling No No -Circular Undermining Yes No -Exudate Amt Large Small Large -Exudate Type Serosanguineous Yellow/Green Yellow/Green -Wound Margin Distinct, Distinct, Outline Outline Attached Attached -Granulation Amt Large (67-100%) Medium (34-66%) None Present (0 %) -Granulation Quality Red Red -Slough/Fibrin No Yes -Necrosis Amt None Present (0 Medium (34-66%) Large (67-100%) %) -Necrotic Tissue Type Adherent Slough Adherent Slough -Texture (Kiana-wound Skin Appearance) Assessed, Assessed, Excoriation Localized Edema Scarring -Moisture (Kiana-wound Skin Appearance) Assessed No Abnormality, No Abnormality Assessed -Color (Kiana-wound Skin Appearance) Assessed, No Abnormality, Erythema Erythema Assessed -Temperature (Kiana-wound Skin No Abnormality No Abnormality No Abnormality Appearance) (Pt Warm) (Pt Warm) (Pt Warm) -Tenderness on Palpation (Kiana-wound Yes Skin Appearance) -Ulcer Cleansing Rinsed/ Rinsed/ Rinsed/ Irrigated with Irrigated with Irrigated with Saline Saline Saline -Foul Odor after Cleansing No No No -Anesthetic Used 4% Lidocaine 5% Lidocaine 5% Lidocaine Solution Gel Gel WC - Nurse 2 - General Ulcer CM Notes Start: 09/27/20 11:12 Freq: Status: Active Protocol: Activity Type Activity Date Activity User E-Sign Co-Sign Detail Recorded Client Recorded Date Recorded By Document 09/27/20 12:15 PL [id number] 09/27/20 12:16 PL 09/27/20 12:15 Wound Center Nurse 2 -Procedure Performed No -Post Debridement (cm) - Length 0.3 -Post Debridement (cm) - Width 0.3 -Post Debridement (cm) - Depth 0.4 -Total Square (Post) (cm) 0.09 -Tunneling Yes -Tunneling Position (O'clock) 6 -Tunneling Distance (cm) 2.0 Pain Scale: 0-10 Numeric Is Patient Pain Free? Yes - Nurse 3 - General Ulcer D/C NN Start: 09/27/20 11:12 Freq: Status: Active Protocol: Activity Type Activity Date Activity User E-Sign Co-Sign Detail Recorded Client Recorded Date Recorded By Document 09/27/20 11:53 [facility] [id number] 09/27/20 11:53 [facility] Document 10/11/20 11:37 [id number] 10/11/20 11:44 KR 09/27/20 10/11/20 11:53 11:37 Wound Care Nurse 3 #1 left elbow -Ulcer Cleansing Rinsed/ Rinsed/ Irrigated with Irrigated with Saline Saline -Foul Odor after Cleansing No -Primary Dressing Applied Other -Other Dressing NUGAUZE -Primary Dressing Covered/Secured with Dry Gauze, Dry Gauze, Secured with Secured with Tape Tape Treatment Response Procedure Tolerated Well Pain Scale: 0-10 Numeric Is Patient Pain Free? Yes Yes - Visit Discharge Discharge Condition Stable Stable Ambulatory Status Ambulatory Ambulatory Transportation Private Auto Accompanied by Wound debrided: Left posterior elbow Laterality: Left Type of Debridement: Excisional debridement Anesthesia Used: 5% Lidocaine Gel Depth: Down to and including healthy tissue and in the subcutaneous layer Percentage of wound debrided: 90 Instrument Used: - (1 mm curette) Severity: Fat Layer Exposed Amount of bleeding with debridement: Mild Bleeding Controlled with: Compression and gauze Patient tolerated procedure: Patient tolerated procedure well Assessment/Plan Assessment/Plan (1) Osteomyelitis of elbow: CODE(S): M86.9 - Osteomyelitis, unspecified (2) Abscess of left elbow: CODE(S): L02.414 - Cutaneous abscess of left upper limb (3) Open wnd elbow-complic: CODE(S): S51.009A - Unspecified open wound of unspecified elbow, initial encounter QUALIFIERS: Encounter type: subsequent encounter Laterality: left Qualified Code(s): S51.002D - Unspecified open wound of left elbow, subsequent encounter (4) Wound, open, elbow: CODE(S): S51.009A - Unspecified open wound of unspecified elbow, initial encounter QUALIFIERS: Encounter type: subsequent encounter Laterality: left Qualified Code(s): S51.002D - Unspecified open wound of left elbow, subsequent encounter (5) Ulnar neuropathy of right upper extremity: CODE(S): G56.21 - Lesion of ulnar nerve, right upper limb (6) Ulnar neuropathy of left upper extremity: CODE(S): G56.22 - Lesion of ulnar nerve, left upper limb (7) Muscle wasting and atrophy, not elsewhere classified, right hand: CODE(S): M62.541 - Muscle wasting and atrophy, not elsewhere classified, right hand (8) Muscle wasting and atrophy, not elsewhere classified, left hand: CODE(S): M62.542 - Muscle wasting and atrophy, not elsewhere classified, left hand (9) Contracture of left hand: CODE(S): M24.542 - Contracture, left hand (10) Contracture of right hand: CODE(S): M24.541 - Contracture, right hand (11) Weakness of both hands: CODE(S): R29.898 - Other symptoms and signs involving the musculoskeletal system (12) Neuritis of right ulnar nerve: CODE(S): G56.21 - Lesion of ulnar nerve, right upper limb (13) Neuritis of left ulnar nerve: CODE(S): G56.22 - Lesion of ulnar nerve, left upper limb (14) Osteomyelitis of left elbow: CODE(S): M86.9 - Osteomyelitis, unspecified (15) COPD (chronic obstructive pulmonary disease): CODE(S): J44.9 - Chronic obstructive pulmonary disease, unspecified (16) History of CVA (cerebrovascular accident): CODE(S): Z86.73 - Personal history of transient ischemic attack (TIA), and cerebral infarction without residual deficits (17) Degenerative disc disease: (18) GERD (gastroesophageal reflux disease): CODE(S): K21.9 - Gastro-esophageal reflux disease without esophagitis (19) Diabetes mellitus: CODE(S): E11.9 - Type 2 diabetes mellitus without complications (20) Thenar muscle atrophy of right hand: CODE(S): M62.541 - Muscle wasting and atrophy, not elsewhere classified, right hand (21) Chronic diastolic heart failure: CODE(S): I50.32 - Chronic diastolic (congestive) heart failure (22) Pure hypercholesterolemia: CODE(S): E78.00 - Pure hypercholesterolemia, unspecified (23) Essential hypertension: CODE(S): I10 - Essential (primary) hypertension (24) Presence of stent in coronary artery: CODE(S): Z95.5 - Presence of coronary angioplasty implant and graft (25) Aortocoronary bypass status: CODE(S): Z95.1 - Presence of aortocoronary bypass graft (26) Atherosclerotic heart disease of [place] coronary artery without angina pectoris: CODE(S): I25.10 - Atherosclerotic heart disease of [place] coronary artery without angina pectoris (27) Hypokalemia: CODE(S): E87.6 - Hypokalemia PLAN: The results of the patient's recent left elbow MRI indicates osteomyelitis involving the medial epicondyle with a small overlying soft tissue abscess.? This finding had been suspected, but has awaited definitive diagnostic imaging for confirmation.? As has been previously documented, it is felt that a multidisciplinary approach is warranted in the management of the patient's left elbow pathology.? The finding of osteomyelitis suggests the need for involvement of the Orthopedic Surgery service.? Dr. Lynda Bartlett is the patient's current Orthopedic Surgeon, and is involved with respect to other orthopedic problems.? It is known that Dr. Bartlett has recently departed her local practice, and is relocating to [place], [place].? In her new practice, Dr. Bartlett will not be a provider within the patient's insurance network, and finding another orthopedic provider will be necessary. It is felt that a multidisciplinary approach to the patient's problem is warranted. Certainly, it is felt that an orthopedic surgeon should assume a leadership role in the management of the patient's osteomyelitis. Furthermore, the patient is felt to require ulnar nerve release or transposition bilaterally, procedures which have been considered prior to the diagnosis of osteomyelitis. Following Dr. Bartlett's departure, we are to seek another integrated marketing specialist who is willing to become involved in the patient's care. The other orthopedic physicians and Dr. Bartlett's [place] office have declined to become involved in the patient's care. We have been given several recommendations by Dr. Bartlett. These include the following: Dr.Mollie Malave at the [facility] in [place], [place]. Also, Dr. Willian Beltran at [facility], in [place], [place]. The 2 aforementioned physicians are upper extremity orthopedic specialists. Another option would be to seek consultation with an integrated marketing specialist at [facility] locally. The patient has his insurance coverage through [facility], and efforts will be made to find a willing orthopedic provider to assume his care. If care is to be rendered locally, I have spoken with Dr. Josiah Frederick, Plastic Surgeon, who is willing to provide assistance in a secondary role as needed. We are to seek transfer of care to an integrated marketing specialist within the next several days. It is noted that the patient's recent cultures were positive for 1+ Staph epidermidis. The patient is to be seen and evaluated by Dr. Sabino Smith, Infectious Disease specialist, tomorrow, and his recommendations will be awaited. As mentioned, it is felt that a multidisciplinary approach is warranted in the management of the patient's current problems. In the interim, the patient and his are to continue packing the wound cavity with 1/4 inch Nu Gauze packing on a daily basis.? Finally, we will consider whether there might be a role for hyperbaric oxygen therapy and the eventual management of the patient's osteomyelitis.? [facility].? By that time, it is hoped that a more comprehensive management plan will be taking form, utilizing a multidisciplinary approach. Total time: 28 minutes.
== END 2020-10-24 23:59 ==
LOC: WC 11:00
PROVIDERS: PCP Family Medicine; Referring Provider Family Medicine; Visit Provider Surgery
DX: E11.69 Type 2 diabetes mellitus with other specified complication (principal); M86.9 Osteomyelitis, unspecified; S51.002D Unspecified open wound of left elbow, subsequent encounter; J44.9 Chronic obstructive pulmonary disease, unspecified; K21.9 Gastro-esophageal reflux disease without esophagitis; L02.414 Cutaneous abscess of left upper limb; I25.10 Atherosclerotic heart disease of native coronary artery without angina pectoris; I11.0 Hypertensive heart disease with heart failure; I50.32 Chronic diastolic (congestive) heart failure; E78.00 Pure hypercholesterolemia, unspecified; E87.6 Hypokalemia; Z95.5 Presence of coronary angioplasty implant and graft; Z95.1 Presence of aortocoronary bypass graft; Z86.73 Personal history of transient ischemic attack (TIA), and cerebral infarction without residual deficits; F31.9 Bipolar disorder, unspecified; Z79.82 Long term (current) use of aspirin; Z79.899 Other long term (current) drug therapy
CPT/HCPCS: 11042; 73223; 87070; 87075; 87077; 87186; 87205; 99213; A9575; G0463

== ENCOUNTER 2020-10-25 11:00 | Outpatient (RCR) | payer OTHER, SELFPAY ==
[2020-10-25 00:26] VITALS: BP 138/79; PULSE 76; RESP 18; TEMP 36.7
[2020-10-25 11:01] VITALS: BP 133/62; PULSE 61; TEMP 36.4; BMI 34.4
--- NOTE | 2020-10-25 13:13 | HP.PCM_ITS ---
History of Present Illness Date of Service: 10/25/20 Chief Complaint: Chronic left elbow wound with osteomyelitis History of Wound: This is a 65-year-old male who presented with a chronic wound on his left posterior elbow. It had been present since approximately October 2019. He is uncertain as to the etiology or source of the wound, indicating that it may have started as an insect bite, and was initially noted to have the appearance of a blister. He was treated by other physicians, including Dr. Raoul Ortez, who referred the patient, and Dr. Epperson, the patient's primary care physician. Apparently there have been episodes of redness and swelling, for which the patient has been placed on several courses of oral antibiotics, including Cipro and others. The patient was not certain of which antibiotics he has taken in the past. He had previously been advised to use Silvadene topically, as well as antibiotic ointment. Despite all such measures, the patient's left elbow wound failed to heal, prompting referral to our wound care facility. The patient has multiple pre-existing medical problems, including hypertension, coronary artery disease, diabetes mellitus, COPD, etc. 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 Bipolar 1 disorder Chronic diastolic heart failure COPD (chronic obstructive pulmonary disease) CVA (cerebral vascular accident) Degenerative disc disease Essential hypertension GERD (gastroesophageal reflux disease) Hypokalemia Pure hypercholesterolemia Home Medications duloxetine 60 mg PO BID 08/15/15 [History Last Taken Unknown] hydromorphone 4 mg PO Q6H PRN PRN 08/15/15 [History Last Taken Unknown] lorazepam 1 mg PO TID PRN PRN 08/15/15 [History Last Taken Unknown] multivitamin,mt-azia-xeoekrfq 1 tab PO DAILY 08/15/15 [History Last Taken Unknown] niacin 500 mg PO QHS 08/15/15 [History Last Taken Unknown] omeprazole 20 mg PO DAILY 08/15/15 [History Last Taken Unknown] aspirin 81 mg tablet,delayed release 81 mg PO QDAY 06/24/17 [History Last Taken Unknown] folic acid 1 mg tablet 1 mg PO QDAY 06/24/17 [History Last Taken Unknown] pregabalin 100 mg capsule 100 mg PO BID 06/24/17 [History Last Taken Unknown] quetiapine 100 mg tablet 200 mg PO QHS tab 06/24/17 [History Last Taken Unknown] vitamin B complex 1 tab PO QDAY 06/24/17 [History Last Taken Unknown] melatonin 3 mg tablet 9 mg PO HS PRN tab 02/27/18 [History Last Taken Unknown] topiramate 50 mg tablet 300 mg PO BID tab 02/27/18 [History Last Taken Unknown] oxybutynin chloride 5 mg tablet 15 mg PO QHS tab 07/15/18 [History Last Taken Unknown] erenumab-aooe 70 mg/mL subcutaneous auto-injector 140 mg SC QMONTH 30 Days #2 ea 03/11/19 [History Last Taken Unknown] nitroglycerin 0.4 mg sublingual tablet 0.4 mg SUBLINGUAL Q5M PRN #25 tab 12/17/19 [Rx Last Taken Unknown] temazepam 15 mg PO QHS PRN PRN 06/28/20 [History Last Taken Unknown] clopidogrel 75 mg tablet 75 mg PO DAILY #90 tab 08/05/20 [Rx Last Taken Unknown] pravastatin 80 mg tablet 40 mg PO DAILY #45 tab 08/11/20 [Rx Last Taken Unknown] metoprolol succinate 50 mg tablet,extended release 24 hr See Rx Instructions .ROUTE .COMPLEX #90 tab 08/12/20 [Rx Last Taken Unknown] potassium chloride 10 mEq capsule,extended release See Rx Instructions .ROUTE .COMPLEX #240 cap 08/12/20 [Rx Last Taken Unknown] diazepam 2 mg tablet 2 mg PO TID PRN #7 tablet 09/06/20 [Rx Last Taken Unknown] Allergy/AdvReac Type Severity Reaction Status Date / Time clindamycin AdvReac Unknown Unknown Verified 08/25/20 14:02 doxepin AdvReac Nausea/Vom/ Verified 08/25/20 14:02 Diarrhea guanfacine AdvReac Nausea/Vom/ Verified 08/25/20 14:02 Diarrhea Penicillins AdvReac Hives Verified 08/25/20 14:02 Family History Father Heart disease Surgical History Aortocoronary bypass status (~1998) History of cholecystectomy History of hernia repair History of skin graft Presence of stent in coronary artery (~08/11/02) Status post debridement (~1993) Social History Smoking Status: Never smoker alcohol intake: never caffeine: Yes Type: carbonated beverages Number of servings: 2 Vital Signs Vital Signs Vital Signs: 10/25/20 00:26 10/25/20 11:01 Temperature 98.1 F 97.5 F L Temperature Source Temporal Pulse Rate 76 61 Respiratory Rate 18 Blood Pressure 138/79 H 133/62 H Blood Pressure Mean 98 85 Blood Pressure Source Monitor Blood Pressure Position Sitting Blood Pressure Location Right Arm Left Arm Weight Weight: 240 lb Body Mass Index (BMI) 34.4 Physical Exam Const alert, oriented x3, no apparent distress and well nourished General Appearance: cooperative, comfortable and well developed Orientation / Consciousness: awake, oriented to person, oriented to place and oriented to time HEENT normocephalic and head/scalp atraumatic Head and Scalp: normal to inspection, normocephalic and atraumatic External Ear: external ears normal Eyes PERRL and EOMs intact bilaterally Resp normal respiratory effort and no use of accessory muscles Effort and Inspection: able to speak in complete sentences Extremity no calf tenderness Extremity Narrative: The patient is noted to have contractures of the fingers of both hands, much more severe on the left. It appears to involve the third fourth and fifth digits on the left hand. General Extremity: Negative for clubbing or cyanosis Skin Wound Narrative: The wound persists on the patient's left posterior elbow. Externally, there is a small opening, approximately 2 to 3 mm in diameter. It is surrounded by a rim of erythema and induration. Probing of the wound reveals undermining, and a tract with a depth of approximately 18 mm extending towards the elbow. There is a small amount of yellowish drainage. Neuro oriented x3 and CN's II-XII intact bilaterally Neuro Narrative: Sensorium / Orientation: awake, alert, oriented to person, oriented to place and oriented to time Speech: speech normal Psych Appearance: grossly normal and appropriate Attitude: calm and engaged Activity / Motor Behavior: appropriate eye contact Speech: normal speech Thought Process: normal thought process Debridement Note Debridement Note Post-Debridement Measurements and Additional Note: Post-Debridement Measurements/Treatment WC - Nurse 1 - General Ulcer Assessment Start: 10/25/20 11:01 Freq: Status: Active Protocol: CHRIS.DAVONTE Activity Type Activity Date Activity User E-Sign Co-Sign Detail Recorded Client Recorded Date Recorded By Document 10/25/20 11:01 KENNA [id number] 10/25/20 11:02 KENNA 10/25/20 11:01 - Today's Visit Information Type of service Follow-up Visit (Physician/FACILITIES MAINTENANCE ASSISTANT ) Arrival Mode Ambulatory Patient Identification Verified (Name & Yes ) Height and Weight Body Mass Index (BMI) 34.4 BMI Classification Obese Vital Signs Temperature (97.8 F-99.1 F) 97.5 F L Temperature Source Temporal Pulse Rate (60-100) 61 Pulse Location Monitor Blood Pressure (90/60-120/80) 133/62 H Blood Pressure Mean 85 Source Monitor Position Sitting Blood Pressure Location Left Arm History Since Last Visit- (Skip if this is Patient's initial visit) Have you changed medications since your No last visit? Any new allergies or adverse reactions No Had a fall/change in ADL's that may No increase risk of falls Signs or symptoms of abuse and/or No neglect since last visit Have you been in the hospital since your No last visit? Has dressing in place as prescribed Yes Has compression in place as prescribed N/A Has offloadiing in place as prescribed N/A Experienced any changes in pain level or No management Left Footwear Regular Shoe Right Footwear Regular Shoe Pain Scale: 0-10 Numeric Is Patient Pain Free? Yes - Nurse 1 - General Ulcer Measurement Start: 10/25/20 11:01 Freq: Status: Active Protocol: Activity Type Activity Date Activity User E-Sign Co-Sign Detail Recorded Client Recorded Date Recorded By Document 10/25/20 11:01 KENNA [id number] 10/25/20 11:02 KENNA 10/25/20 11:01 Wound Center Nurse 1 #1 left elbow -Current Size (cm) - Length 0.2 -Current Size (cm) - Width 0.2 -Current Size (cm) - Depth 0.2 -Total Square Cm 0.04 -Exudate Amt Small -Exudate Type Yellow/Green -Wound Margin Distinct, Outline Attached -Granulation Amt Small (1-33%) -Granulation Quality Kinney -Necrosis Amt Small (1-33%) -Necrotic Tissue Type Adherent Slough -Texture (Kiana-wound Skin Appearance) Assessed, Scarring -Moisture (Kiana-wound Skin Appearance) No Abnormality, Assessed -Color (Kiana-wound Skin Appearance) No Abnormality, Assessed -Temperature (Kiana-wound Skin No Abnormality Appearance) (Pt Warm) -Tenderness on Palpation (Kiana-wound No Skin Appearance) -Ulcer Cleansing Rinsed/ Irrigated with Saline -Foul Odor after Cleansing No -Anesthetic Used 5% Lidocaine Gel WC - Nurse 3 - General Ulcer D/C NN Start: 10/25/20 11:01 Freq: Status: Active Protocol: Activity Type Activity Date Activity User E-Sign Co-Sign Detail Recorded Client Recorded Date Recorded By Document 10/25/20 12:[address] [id number] 10/25/20 12:48 PL 10/25/20 12:48 Wound Care Nurse 3 -Ulcer Cleansing Rinsed/ Irrigated with Saline -Foul Odor after Cleansing No -Other Dressing Nugauze -Primary Dressing Covered/Secured with Dry Gauze, Secured with Tape WC - Visit Discharge Discharge Condition Stable Ambulatory Status Ambulatory Transportation Private Auto Clinical Summary of Care Provided Yes No debridement was completed: No debridement was completed today Assessment/Plan Assessment/Plan (1) Osteomyelitis of elbow: CODE(S): M86.9 - Osteomyelitis, unspecified (2) Ulnar neuropathy of right upper extremity: CODE(S): G56.21 - Lesion of ulnar nerve, right upper limb (3) Ulnar neuropathy of left upper extremity: CODE(S): G56.22 - Lesion of ulnar nerve, left upper limb (4) Muscle wasting and atrophy, not elsewhere classified, right hand: CODE(S): M62.541 - Muscle wasting and atrophy, not elsewhere classified, right hand (5) Muscle wasting and atrophy, not elsewhere classified, left hand: CODE(S): M62.542 - Muscle wasting and atrophy, not elsewhere classified, left hand (6) Contracture of left hand: CODE(S): M24.542 - Contracture, left hand (7) Contracture of right hand: CODE(S): M24.541 - Contracture, right hand (8) Weakness of both hands: CODE(S): R29.898 - Other symptoms and signs involving the musculoskeletal system (9) Neuritis of right ulnar nerve: CODE(S): G56.21 - Lesion of ulnar nerve, right upper limb (10) Neuritis of left ulnar nerve: CODE(S): G56.22 - Lesion of ulnar nerve, left upper limb (11) Osteomyelitis of left elbow: CODE(S): M86.9 - Osteomyelitis, unspecified (12) Abscess of left elbow: CODE(S): L02.414 - Cutaneous abscess of left upper limb (13) COPD (chronic obstructive pulmonary disease): CODE(S): J44.9 - Chronic obstructive pulmonary disease, unspecified (14) History of CVA (cerebrovascular accident): CODE(S): Z86.73 - Personal history of transient ischemic attack (TIA), and cerebral infarction without residual deficits (15) Degenerative disc disease: (16) GERD (gastroesophageal reflux disease): CODE(S): K21.9 - Gastro-esophageal reflux disease without esophagitis (17) Diabetes mellitus: CODE(S): E11.9 - Type 2 diabetes mellitus without complications (18) Wound, open, elbow: CODE(S): S51.009A - Unspecified open wound of unspecified elbow, initial encounter QUALIFIERS: Encounter type: subsequent encounter Laterality: left Qualified Code(s): S51.002D - Unspecified open wound of left elbow, subsequent encounter (19) Open wnd elbow-complic: CODE(S): S51.009A - Unspecified open wound of unspecified elbow, initial encounter QUALIFIERS: Encounter type: subsequent encounter Laterality: left Qualified Code(s): S51.002D - Unspecified open wound of left elbow, subsequent encounter (20) Thenar muscle atrophy of right hand: CODE(S): M62.541 - Muscle wasting and atrophy, not elsewhere classified, right hand (21) Chronic diastolic heart failure: CODE(S): I50.32 - Chronic diastolic (congestive) heart failure (22) Pure hypercholesterolemia: CODE(S): E78.00 - Pure hypercholesterolemia, unspecified (23) Essential hypertension: CODE(S): I10 - Essential (primary) hypertension (24) Presence of stent in coronary artery: CODE(S): Z95.5 - Presence of coronary angioplasty implant and graft (25) Aortocoronary bypass status: CODE(S): Z95.1 - Presence of aortocoronary bypass graft (26) 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 This finding had been suspected, but had awaited definitive diagnostic imaging for confirmation. As has been previously documented, it is felt that a multidisciplinary approach is warranted in the management of the patient's left elbow pathology. The finding of osteomyelitis suggests the need for involvement of the Orthopedic Surgery service. Dr. Lynda Bartlett is the patient's current Orthopedic Surgeon, and is involved with respect to other orthopedic problems. It is known that Dr. Bartlett has recently departed her local practice, and is relocating to [place], [place]. In her new practice, Dr. Bartlett will not be a provider within the patient's insurance network, and finding another orthopedic provider will be necessary. It is felt that a multidisciplinary approach to the patient's problem is warranted. Certainly, it is felt that an orthopedic surgeon should assume a leadership role in the management of the patient's osteomyelitis. Furthermore, the patient is felt to require ulnar nerve release or transposition bilaterally, procedures which have been considered prior to the diagnosis of osteomyelitis. Following Dr. Bartlett's departure, we are to s chemehuevi another medical administrative specialist who is willing to become involved in the patient's care. The other orthopedic physicians and Dr. Bartlett's [place] office have declined to become involved in the patient's care. We have been given several recommendations by Dr. Bartlett. These include the following: Dr.Mollie Malave at the [facility] in [place], [place]. Also, Dr. Willian Beltran at [facility], in [place], [place]. The 2 aforementioned physicians are upper extremity orthopedic specialists. Another option would be to seek consultation with an medical administrative specialist at [facility] locally. The patient has his insurance coverage through [facility], and efforts will be made to find a willing orthopedic provider to assume his care. If care is to be rendered locally, I have spoken with Dr. Josiah Frederick, Plastic Surgeon, who is willing to provide assistance in a secondary role as needed. We are to seek transfer of care to an medical administrative specialist within the next several days. It is noted that the patient's recent cultures were positive for 1+ Staph epidermidis. The patient has been seen and evaluated by Dr. Sabino Smith, Infectious Disease specialist. Consultation was provided on October 19, 2020. Dr. Smith has suggested a 6 weeks course of doxycycline orally. Dr. Smith provided a prescription for doxycycline 100 mg p.o. to be taken twice daily. As mentioned, it is felt that a multidisciplinary approach is warranted in the management of the patient's current problems. In the interim, the patient and his are to continue packing the wound cavity with 1/4 inch Nu Gauze packing on a daily basis. Finally, we will consider whether there might be a role for hyperbaric oxygen therapy and the eventual management of the patient's osteomyelitis. [facility]. By that time, it is hoped that a more comprehensive management plan will be taking form, utilizing a multidisciplinary approach. Total time: 29 minutes.
== END 2020-11-23 23:59 ==
LOC: WC 11:00
PROVIDERS: PCP Family Medicine; Referring Provider Family Medicine; Visit Provider Surgery
DX: M86.8X2 Other osteomyelitis, upper arm (principal); G56.21 Lesion of ulnar nerve, right upper limb; G56.22 Lesion of ulnar nerve, left upper limb; M62.541 Muscle wasting and atrophy, not elsewhere classified, right hand; M62.542 Muscle wasting and atrophy, not elsewhere classified, left hand; M24.542 Contracture, left hand; M24.541 Contracture, right hand; R29.898 Other symptoms and signs involving the musculoskeletal system; L02.414 Cutaneous abscess of left upper limb; J44.9 Chronic obstructive pulmonary disease, unspecified; Z86.73 Personal history of transient ischemic attack (TIA), and cerebral infarction without residual deficits; K21.9 Gastro-esophageal reflux disease without esophagitis; E11.9 Type 2 diabetes mellitus without complications; I50.32 Chronic diastolic (congestive) heart failure; E78.00 Pure hypercholesterolemia, unspecified; I11.0 Hypertensive heart disease with heart failure; Z95.5 Presence of coronary angioplasty implant and graft; Z95.1 Presence of aortocoronary bypass graft; I25.10 Atherosclerotic heart disease of native coronary artery without angina pectoris
CPT/HCPCS: 99213; G0463

== ENCOUNTER 2020-11-29 11:30 | Outpatient (RCR) | payer OTHER, SELFPAY ==
[2020-11-24 00:22] VITALS: BP 133/62; PULSE 61; RESP 18; TEMP 36.4
[2020-11-29 11:31] VITALS: BP 146/71; PULSE 687; RESP 18; TEMP 37; BMI 34.4
--- NOTE | 2020-11-29 12:57 | HP.PCM_ITS ---
History of Present Illness Date of Service: 11/29/20 Chief Complaint: Chronic left elbow wound with osteomyelitis History of Wound: This is a 65-year-old male who presented with a chronic wound on his left posterior elbow. It had been present since approximately October 2019. He is uncertain as to the etiology or source of the wound, indicating that it may have started as an insect bite, and was initially noted to have the appearance of a blister. He was treated by other physicians, including Dr. Raoul Ortez, who referred the patient, and Dr. Epperson, the patient's primary care physician. Apparently there have been episodes of redness and swelling, for which the patient has been placed on several courses of oral antibiotics, including Cipro and others. The patient was not certain of which antibiotics he has taken in the past. He had previously been advised to use Silvadene topically, as well as antibiotic ointment. Despite all such measures, the patient's left elbow wound failed to heal, prompting referral to our wound care facility. The patient has multiple pre-existing medical problems, including hypertension, coronary artery disease, diabetes mellitus, COPD, etc. [facility] Medical History Abscess of left elbow Atherosclerotic heart disease of [place] coronary artery without angina pectoris Bipolar 1 disorder Chronic diastolic heart failure COPD (chronic obstructive pulmonary disease) CVA (cerebral vascular accident) Degenerative disc disease Essential hypertension GERD (gastroesophageal reflux disease) Hypokalemia Pure hypercholesterolemia Home Medications duloxetine 60 mg PO BID 08/15/15 [History Last Taken Unknown] hydromorphone 4 mg PO Q6H PRN PRN 08/15/15 [History Last Taken Unknown] lorazepam 1 mg PO TID PRN PRN 08/15/15 [History Last Taken Unknown] multivitamin,us-mgmw-uprzfubo 1 tab PO DAILY 08/15/15 [History Last Taken Unknown] niacin 500 mg PO QHS 08/15/15 [History Last Taken Unknown] omeprazole 20 mg PO DAILY 08/15/15 [History Last Taken Unknown] aspirin 81 mg tablet,delayed release 81 mg PO QDAY 06/24/17 [History Last Taken Unknown] folic acid 1 mg tablet 1 mg PO QDAY 06/24/17 [History Last Taken Unknown] pregabalin 100 mg capsule 100 mg PO BID 06/24/17 [History Last Taken Unknown] quetiapine 100 mg tablet 200 mg PO QHS tab 06/24/17 [History Last Taken Unknown] vitamin B complex 1 tab PO QDAY 06/24/17 [History Last Taken Unknown] melatonin 3 mg tablet 9 mg PO HS PRN tab 02/27/18 [History Last Taken Unknown] topiramate 50 mg tablet 300 mg PO BID tab 02/27/18 [History Last Taken Unknown] oxybutynin chloride 5 mg tablet 15 mg PO QHS tab 07/15/18 [History Last Taken Unknown] erenumab-aooe 70 mg/mL subcutaneous auto-injector 140 mg SC QMONTH 30 Days #2 ea 03/11/19 [History Last Taken Unknown] nitroglycerin 0.4 mg sublingual tablet 0.4 mg SUBLINGUAL Q5M PRN #25 tab 12/17/19 [Rx Last Taken Unknown] temazepam 15 mg PO QHS PRN PRN 06/28/20 [History Last Taken Unknown] clopidogrel 75 mg tablet 75 mg PO DAILY #90 tab 08/05/20 [Rx Last Taken Unknown] pravastatin 80 mg tablet 40 mg PO DAILY #45 tab 08/11/20 [Rx Last Taken Unknown] metoprolol succinate 50 mg tablet,extended release 24 hr See Rx Instructions .ROUTE .COMPLEX #90 tab 08/12/20 [Rx Last Taken Unknown] potassium chloride 10 mEq capsule,extended release See Rx Instructions .ROUTE .COMPLEX #240 cap 08/12/20 [Rx Last Taken Unknown] diazepam 2 mg tablet 2 mg PO TID PRN #7 tablet 09/06/20 [Rx Last Taken Unknown] Allergy/AdvReac Type Severity Reaction Status Date / Time clindamycin AdvReac Unknown Unknown Verified 08/25/20 14:02 doxepin AdvReac Nausea/Vom/ Verified 08/25/20 14:02 Diarrhea guanfacine AdvReac Nausea/Vom/ Verified 08/25/20 14:02 Diarrhea Penicillins AdvReac Hives Verified 08/25/20 14:02 Family History Father Heart disease Surgical History Aortocoronary bypass status (~1998) History of cholecystectomy History of hernia repair History of skin graft Presence of stent in coronary artery (~08/11/02) Status post debridement (~1993) Social History Smoking Status: Never smoker alcohol intake: never caffeine: Yes Type: carbonated beverages Number of servings: 2 Vital Signs Vital Signs Vital Signs: 11/29/20 11:31 Temperature 98.6 F Temperature Source Temporal Pulse Rate 687 H Respiratory Rate 18 Blood Pressure 146/71 H Blood Pressure Mean 96 Weight Weight: 240 lb Body Mass Index (BMI) 34.4 Physical Exam Const alert, oriented x3 and no apparent distress General Appearance: cooperative, comfortable and well developed Orientation / Consciousness: awake, oriented to person, oriented to place and oriented to time HEENT normocephalic and head/scalp atraumatic Head and Scalp: normal to inspection, normocephalic and atraumatic External Ear: external ears normal Eyes PERRL and EOMs intact bilaterally General Eye: normal appearance of both eyes Resp normal respiratory effort, normal air movement, no retractions and no use of accessory muscles Effort and Inspection: able to speak in complete sentences Extremity no calf tenderness Extremity Narrative: Flexion contractures are noted in the digits of both hands, with moderate limitation in range of motion. Muscular atrophy is also noted in both hands. General Extremity: Negative for clubbing or cyanosis Skin Wound Narrative: The wound persists in the patient's left posterior elbow. There is a tunneled wound with a small external opening measuring 2 to 3 mm in diameter. There is a small amount of purulent drainage noted on the dressing. Neuro oriented x3 and CN's II-XII intact bilaterally Psych mental status grossly normal Appearance: grossly normal and appropriate Attitude: calm and engaged Activity / Motor Behavior: appropriate eye contact Speech: normal speech Mood & Affect: depressed Thought Process: normal thought process Debridement Note Debridement Note Post-Debridement Measurements and Additional Note: Post-Debridement Measurements/Treatment CHRIS - Nurse 1 - General Ulcer Assessment Start: 11/29/20 11:31 Freq: Status: Active Protocol: TRAVIS Activity Type Activity Date Activity User E-Sign Co-Sign Detail Recorded Client Recorded Date Recorded By Document 11/29/20 11:31 CONSTANTINO [id number] 11/29/20 11:35 PL 11/29/20 11:31 WC - Today's Visit Information Type of service Follow-up Visit (Physician/STRIP WINDER ) Arrival Mode Ambulatory Transfer Assistance None Patient Identification Verified (Name & Yes ) Patient Requires Transmission-Based Yes Precautions Safety Precautions NA Height and Weight Body Mass Index (BMI) 34.4 BMI Classification Obese Vital Signs Temperature (97.8 F-99.1 F) 98.6 F Temperature Source Temporal Pulse Rate (60-100) 687 H Respiratory Rate (12-18) 18 Blood Pressure (90/60-120/80) 146/71 H Blood Pressure Mean 96 History Since Last Visit- (Skip if this is Patient's initial visit) Have you changed medications since your No last visit? Any new allergies or adverse reactions No Had a fall/change in ADL's that may No increase risk of falls Signs or symptoms of abuse and/or No neglect since last visit Have you been in the hospital since your No last visit? Has dressing in place as prescribed Yes Has compression in place as prescribed N/A Has offloadiing in place as prescribed N/A Experienced any changes in pain level or No management WC - Nurse 1 - General Ulcer Measurement Start: 11/29/20 11:31 Freq: Status: Active Protocol: Activity Type Activity Date Activity User E-Sign Co-Sign Detail Recorded Client Recorded Date Recorded By Document 11/29/20 11:31 CONSTANTINO [id number] 11/29/20 11:35 PL 11/29/20 11:31 Wound Center Nurse 1 #1 left elbow -Current Size (cm) - Length 0.1 -Current Size (cm) - Width 0.1 -Current Size (cm) - Depth 1.3 -Total Square Cm 0.01 -Photo Taken No -Exudate Amt Medium -Exudate Type Serosanguineous -Granulation Amt Small (1-33%) -Granulation Quality [place] -Necrosis Amt Small (1-33%) -Necrotic Tissue Type Adherent Slough -Ulcer Cleansing Rinsed/ Irrigated with Saline -Foul Odor after Cleansing No -Anesthetic Used 5% Lidocaine Gel Assessment/Plan Assessment/Plan (1) Osteomyelitis of elbow: CODE(S): M86.9 - Osteomyelitis, unspecified (2) Ulnar neuropathy of right upper extremity: CODE(S): G56.21 - Lesion of ulnar nerve, right upper limb (3) Ulnar neuropathy of left upper extremity: CODE(S): G56.22 - Lesion of ulnar nerve, left upper limb (4) Muscle wasting and atrophy, not elsewhere classified, right hand: CODE(S): M62.541 - Muscle wasting and atrophy, not elsewhere classified, right hand (5) Muscle wasting and atrophy, not elsewhere classified, left hand: CODE(S): M62.542 - Muscle wasting and atrophy, not elsewhere classified, left hand (6) Contracture of left hand: CODE(S): M24.542 - Contracture, left hand (7) Contracture of right hand: CODE(S): M24.541 - Contracture, right hand (8) Weakness of both hands: CODE(S): R29.898 - Other symptoms and signs involving the musculoskeletal system (9) Neuritis of right ulnar nerve: CODE(S): G56.21 - Lesion of ulnar nerve, right upper limb (10) Neuritis of left ulnar nerve: CODE(S): G56.22 - Lesion of ulnar nerve, left upper limb (11) Osteomyelitis of left elbow: CODE(S): M86.9 - Osteomyelitis, unspecified (12) Abscess of left elbow: CODE(S): L02.414 - Cutaneous abscess of left upper limb (13) COPD (chronic obstructive pulmonary disease): CODE(S): J44.9 - Chronic obstructive pulmonary disease, unspecified (14) History of CVA (cerebrovascular accident): CODE(S): Z86.73 - Personal history of transient ischemic attack (TIA), and cerebral infarction without residual deficits (15) Degenerative disc disease: (16) GERD (gastroesophageal reflux disease): CODE(S): K21.9 - Gastro-esophageal reflux disease without esophagitis (17) Diabetes mellitus: CODE(S): E11.9 - Type 2 diabetes mellitus without complications (18) Wound, open, elbow: CODE(S): S51.009A - Unspecified open wound of unspecified elbow, initial encounter QUALIFIERS: Encounter type: subsequent encounter Laterality: left Qualified Code(s): S51.002D - Unspecified open wound of left elbow, subsequent encounter (19) Open wnd elbow-complic: CODE(S): S51.009A - Unspecified open wound of unspecified elbow, initial encounter QUALIFIERS: Encounter type: subsequent encounter Laterality: left Qualified Code(s): S51.002D - Unspecified open wound of left elbow, subsequent encounter (20) Thenar muscle atrophy of right hand: CODE(S): M62.541 - Muscle wasting and atrophy, not elsewhere classified, right hand (21) Chronic diastolic heart failure: CODE(S): I50.32 - Chronic diastolic (congestive) heart failure (22) Pure hypercholesterolemia: CODE(S): E78.00 - Pure hypercholesterolemia, unspecified (23) Essential hypertension: CODE(S): I10 - Essential (primary) hypertension (24) Presence of stent in coronary artery: CODE(S): Z95.5 - Presence of coronary angioplasty implant and graft (25) Aortocoronary bypass status: CODE(S): Z95.1 - Presence of aortocoronary bypass graft (26) Atherosclerotic heart disease of [place] coronary artery without angina pectoris: CODE(S): I25.10 - Atherosclerotic heart disease of [place] coronary artery without angina pectoris PLAN: The results of the patient's recent left elbow MRI indicates osteomyelitis involving the medial epicondyle with a small overlying soft tissue abscess. This finding had been suspected, but had awaited definitive diagnostic imaging for confirmation. As has been previously outlined, it is felt that a multidisciplinary approach is warranted in the management of the patient's left elbow pathology. The finding of osteomyelitis suggests the need for involvement of the Orthopedic Surgery service. Dr. Lynda Bartlett was the patient's Orthopedic Surgeon, and had been involved with the patient as his orthopedic provider until recently. It is known that Dr. Bartlett has recently departed her local practice, and has relocated to [place], [place]. In her new practice, Dr. Bartlett will not be a provider within the patient's insurance network, and finding another orthopedic provider will be necessary. It is felt that a multidisciplinary approach to the patient's problem is warranted. Certainly, it is felt that an orthopedic surgeon should assume a leadership role in the management of the patient's osteomyelitis. Furthermore, the patient is felt to require ulnar nerve release or transposition bilaterally, procedures which had been considered prior to the diagnosis of osteomyelitis. Following Dr. Bartlett's departure, we are to seek another control systems specialist who is willing to become involved in the patient's care. The other orthopedic physicians and Dr. Bartlett's [place] office have declined to become involved in the patient's care. We have been given several recommendations by Dr. Bartlett. These included the following: Dr.Mollie Malave at the [facility] in [place], [place]. Also, Dr. Willian Beltran at [facility] in [place], [place]. The 2 aforementioned physicians are upper extremity orthopedic specialists. Another option would be to seek consultation with an control systems specialist at [facility] locally. The patient has his [facility] coverage [facility], and efforts have been made to secure the services of another orthopedic provider willing to assume the patient's care. Unfortunately, none of the aforementioned providers have agreed to accept the patient. If care were to be rendered locally, I have spoken with Dr. Josiah Frederick, Plastic Surgeon, who is willing to provide assistance in a secondary role as needed. We are to seek transfer of care to an control systems specialist as soon as possible. Great and lengthy efforts have been made to find an orthopedic provider to assume the patient's care. Unfortunately, due to the patient's insurance coverage, a provider has not been found. Inquiries have been made at the [facility], the [facility], and elsewhere more locally. All efforts of been met with a lack of success in securing a provider willing to assume the patient's care. It is noted that the patient's recent cultures were positive for 1+ Staph epidermidis. The patient has been seen and evaluated by Dr. Sabino Smith, Infectious Disease specialist. Consultation was provided on October 19, 2020. Dr. Smith has suggested a 6 weeks course of doxycycline orally. Dr. Smith provided a prescription for doxycycline 100 mg p.o. to be taken twice daily. The patient is nearing the end of his prescription of doxycycline, and Dr. Smith is to be contacted to ascertain his recommendations regarding further antibiotic management. We are to continue our efforts to find a provider willing to accept the patient's care as regards definitive management of his osteomyelitis as well as attention to the ulnar neuropathy which continues to plague both of the patient's upper extremities, and appears to be progressing. Consideration has been given to recruiting the assistance of the [facility] at the [facility], or other tertiary care center. As mentioned, it is felt that a multidisciplinary approach is warranted in the management of the patient's current problems. In the interim, the patient and his are to continue packing the wound cavity with 1/4 inch Nu Gauze packing on a daily basis. Finally, we will consider whether there might be a role for hyperbaric oxygen therapy and the eventual management of the patient's osteomyelitis. Total time: 29 minutes.
--- NOTE | 2020-11-30 17:31 | WC ---
Prescription for Doxycycline 100 PO BID X 10 days No refills was called into [facility]. Patient was informed of the prescription.
== END 2020-12-24 23:59 ==
LOC: WC 11:30
PROVIDERS: PCP Family Medicine; Referring Provider Family Medicine; Visit Provider Surgery
DX: M86.9 Osteomyelitis, unspecified (principal); G56.21 Lesion of ulnar nerve, right upper limb; G56.22 Lesion of ulnar nerve, left upper limb; M62.541 Muscle wasting and atrophy, not elsewhere classified, right hand; M62.542 Muscle wasting and atrophy, not elsewhere classified, left hand; M24.542 Contracture, left hand; M24.541 Contracture, right hand; R29.898 Other symptoms and signs involving the musculoskeletal system; L02.414 Cutaneous abscess of left upper limb; J44.9 Chronic obstructive pulmonary disease, unspecified; K21.9 Gastro-esophageal reflux disease without esophagitis; S51.002D Unspecified open wound of left elbow, subsequent encounter; I50.32 Chronic diastolic (congestive) heart failure; E78.00 Pure hypercholesterolemia, unspecified; I11.0 Hypertensive heart disease with heart failure; Z95.5 Presence of coronary angioplasty implant and graft; Z95.1 Presence of aortocoronary bypass graft; I25.10 Atherosclerotic heart disease of native coronary artery without angina pectoris; E11.69 Type 2 diabetes mellitus with other specified complication; Z79.82 Long term (current) use of aspirin; Z86.73 Personal history of transient ischemic attack (TIA), and cerebral infarction without residual deficits; Z79.899 Other long term (current) drug therapy
CPT/HCPCS: 99213; G0463

== ENCOUNTER → 2021-03-01 12:43 | Outpatient (CLI) | payer OTHER, SELFPAY ==
[2021-03-01 15:17] LABS: Absolute Lymphocyte Count 3.09 X10^3/uL (0.83-4.51); Absolute Neutrophil Count 3.9 X10^3/uL (2.0-7.7); Basophil# 0.06 X10^3/uL; Basophil% 0.8 % (0-1); Eosinophil# 0.28 X10^3/uL; Eosinophils% 3.5 % (0-5); Hematocrit 47.7 % (40-54); Hemoglobin 15.5 g/dL (13.0-16.5); Lymphocyte # 3.09 X10^3/ul (0.83-4.51); Mean Corp Hgb Conc 32.5 g/dL (32-36); Mean Corpuscular Hgb 29.9 pg (27.0-32.0); Mean Corpuscular Volume 92.1 fL (80-94); Mean Platelet Vol. 11.1 fl (6.2-12.0); Monocyte# 0.53 X10^3/uL; Monocyte% 6.7 % (0-10); NRBC Flagged by Analyzer 0 % (0-5); Neutrophil # 3.94 X10^3/uL (2.7-7.7); Neutrophil % 49.7 % (47-70); Platelet Count 174 K/mm3 (150-450); RBC Distribution Width CV 13.2 % (11.6-14.6); RBC Distribution Width SD 44.8 fl (35.1-43.9); Red Blood Count 5.18 M/mm3 (4.6-6.2); White Blood Count 7.9 K/mm3 (4.4-11.0)
[2021-03-01 15:34] LABS: Vitamin B12 1336 pg/mL (211-911)
[2021-03-01 16:37] LABS: ALB/GLOB Ratio 0.8 RATIO (0.9-2.4); AST(SGOT) 14 U/L (15-37); Alanine Aminotransfer ALT/SGPT 19 U/L (16-61); Albumin, Serum 3.2 g/dL (3.2-5.0); Alkaline Phosphatase 129 U/L (45-117); Anion Gap 8 (5-15); BUN 6 mg/dL (7-18); Calcium,Total 8.4 mg/dL (8.5-10.1); Chloride 110 mmol/L (98-107); Cholesterol 150 mg/dL (200); Creatinine, Serum 0.86 mg/dL (0.70-1.30); EST Glomerular Filtration Rate 95 mL/min (>60); Est Glom Filt Rate - Afr Amer 115 mL/min (>60); Glucose 119 mg/dL (74-106); High Density Lipoprotein 44 mg/dL; Potassium 3.5 mmol/L (3.5-5.1); Protein, Total 7.2 g/dL (6.4-8.2); Sodium Level 142 mmol/L (136-145); Thyroid Stim Hormone (TSH) 0.98 uIU/mL (0.358-3.74); Triglycerides 277 mg/dL; Very Low Density Lipoprotein 55 mg/dL (5-40)
== END ==
PROVIDERS: PCP Family Medicine; Referring Provider Family Medicine; Visit Provider Family Medicine
DX: E11.9 Type 2 diabetes mellitus without complications (principal); F03.91 Unspecified dementia, unspecified severity, with behavioral disturbance; R53.83 Other fatigue; E78.1 Pure hyperglyceridemia
CPT/HCPCS: 36415; 80053; 80061; 82607; 82746; 84443; 85025

== ENCOUNTER → 2021-04-07 13:52 | Outpatient (CLI) | payer OTHER, SELFPAY ==
[2021-04-12 10:33] LABS: Arsenic 7245 < 1 ug/L (2-23); Lead, Blood < 1 ug/dL (0-4); Mercury, Blood 85324 < 1.0 ug/L (0.0-14.9)
== END ==
PROVIDERS: PCP Family Medicine; Referring Provider Family Medicine; Visit Provider Family Medicine
DX: R44.2 Other hallucinations (principal); F03.91 Unspecified dementia, unspecified severity, with behavioral disturbance
CPT/HCPCS: 36415; 82175; 83655; 83825

== ENCOUNTER → 2022-02-13 | Outpatient (CLI) | payer MEDICARE, OTHER, SELFPAY ==
[2022-02-13 16:37] LABS: AST(SGOT) 95 U/L (15-37); Alanine Aminotransfer ALT/SGPT 102 U/L (16-61); Albumin, Serum 3.7 g/dL (3.2-5.0); Alkaline Phosphatase 335 U/L (45-117); Bilirubin, Direct 0.27 mg/dL (0.00-0.30); Cholesterol 111 mg/dL (200); High Density Lipoprotein 55 mg/dL; Protein, Total 8.7 g/dL (6.4-8.2); Triglycerides 140 mg/dL; Very Low Density Lipoprotein 28 mg/dL (5-40)
== END | disposition home or self-care (01) ==
LOC: LAB 14:57
PROVIDERS: PCP Family Medicine; Referring Provider Internal Medicine Cardiovascular Disease; Visit Provider Internal Medicine Cardiovascular Disease
DX: E11.9 Type 2 diabetes mellitus without complications (principal)
CPT/HCPCS: 36415; 80061; 80076; 82043; 82570

== ENCOUNTER 2022-03-15 12:55 | Emergency (ER) | payer MEDICARE, OTHER, SELFPAY ==
[2022-03-15 12:57] VITALS: BP 148/87; PULSE 118; RESP 10; TEMP 37.2; O2SAT 94; BMI 33.7
--- NOTE | 2022-03-15 13:22 | CT_ITS ---
INDICATION: Altered level of consciousness EXAMINATION: CT BRAIN - CT Head or Brain W/O Contrast Injection TECHNIQUE: Multiple axial images were obtained of the head without intravenous contrast. A radiation dose optimization technique was used for this scan. IV Contrast dosage and agent: None. COMPARISON: 08/09/2015 FINDINGS: BRAIN PARENCHYMA: No intra- or extra-axial hemorrhage. No acute territorial infarction. Stable right parietal encephalomalacia from chronic CVA. No intracranial mass or mass effect. Posterior fossa structures are unremarkable. CSF SPACES: Appropriate for age. No hydrocephalus. Basal cisterns are patent. CALVARIUM, SKULL BASE, PARANASAL SINUSES AND MASTOID AIR CELLS: Stable changes from prior sinus surgery with minimal mucoperiosteal thickening. No discrete lytic or blastic abnormalities. ORBITS: Both globes, extraocular muscles, optic nerves and retrobulbar fat appear unremarkable. CT/Brain/Head without Contrast IMPRESSION: No acute intracranial findings. Electronically Signed: Corey Calero MD at 20:32 EDT ,
--- NOTE | 2022-03-15 13:22 | EKG12_ITS ---
Test Reason : ALT LOC Blood Pressure : / mmHG Vent. Rate : 117 BPM Atrial Rate : 117 BPM P-R Int : 144 ms QRS Dur : 096 ms QT Int : 332 ms P-R-T Axes : 035 -13 -02 degrees QTc Int : 463 ms Sinus tachycardia Incomplete right bundle branch block Minimal voltage criteria for LVH, may be normal variant ( R in aVL ) ST & T wave abnormality, consider anterior ischemia Abnormal ECG Confirmed by NELSON BRAVO, LUCI ([id number]), subeditor ERICA PALMA ([id number]) on 03/19/2022 2:19:40 PM Referred By: Confirmed By:LUCI DAMON MD
--- NOTE | 2022-03-15 13:29 | EX.ED.DYSGE1 ---
HPI History of Present Illness Chief Complaint: Alt LOC Detail of Chief Complaint: Patient acting out at home. Violent. Informant: legal guardian and spouse/S.O. Onset/Context/Timing Onset: Today and Hours Context: Gradual Onset Timing: Continuous Current Severity: Moderate Maximum Severity: Moderate Narrative Narrative: 67-year-old male history of dementia for last 6 years. has power of securities attorney. Patient is a known history of bypass surgery, CAD with cardiac stent. states she ran out of the grocery she tries not to leave him alone very long. When she came home he has lifted up the TV which is bolted to a stand thrown on the ground. She is since CDs were spread all over the floor. The house was in disarray. She said he was upset and yelling. She tried to calm him down and gave him something to eat. He again became upset and started yelling. She had to call the squad. Prior similar symptoms: No Recent Illness/Hospitalization: No PFSH PFSH Medical History Abscess of left elbow Atherosclerotic heart disease of [place] coronary artery without angina pectoris Bipolar 1 disorder Chronic diastolic heart failure COPD (chronic obstructive pulmonary disease) CVA (cerebral vascular accident) Degenerative disc disease Essential hypertension GERD (gastroesophageal reflux disease) Hypokalemia Pure hypercholesterolemia Home Medications duloxetine 60 mg capsule,delayed release 60 mg PO BID 08/15/15 [History Last Taken Unknown] hydromorphone 4 mg tablet 4 mg PO Q6H PRN PRN Pain 08/15/15 [History Last Taken Unknown] lorazepam 1 mg tablet 1 mg PO TID PRN PRN Anxiety 08/15/15 [History Last Taken Unknown] multivitamin,ag-dxph-bswsxhjq 27 mg-0.4 mg tablet 1 tab PO DAILY 08/15/15 [History Last Taken Unknown] niacin 500 mg tablet,extended release 24 hr 500 mg PO QHS 08/15/15 [History Last Taken Unknown] omeprazole 20 mg capsule,delayed release 20 mg PO DAILY 08/15/15 [History Last Taken Unknown] aspirin 81 mg tablet,delayed release 81 mg PO QDAY 06/24/17 [History Last Taken Unknown] folic acid 1 mg tablet 1 mg PO QDAY 06/24/17 [History Last Taken Unknown] pregabalin 100 mg capsule (Lyrica) 100 mg PO BID 06/24/17 [History Last Taken Unknown] quetiapine 100 mg tablet (Seroquel) 200 mg PO QHS 06/24/17 [History Last Taken Unknown] vitamin B complex (B Complex-Vitamin B12 tablet) 1 tab PO QDAY 06/24/17 [History Last Taken Unknown] melatonin 3 mg tablet 9 mg PO HS PRN Anxiety/Insomnia 02/27/18 [History Last Taken Unknown] topiramate 50 mg tablet (Topamax) 300 mg PO BID 02/27/18 [History Last Taken Unknown] oxybutynin chloride 5 mg tablet 15 mg PO QHS 07/15/18 [History Last Taken Unknown] erenumab-aooe 70 mg/mL subcutaneous auto-injector 140 mg subcut QMONTH 30 days #2 ea 03/11/19 [History Last Taken Unknown] temazepam 15 mg capsule 15 mg PO QHS PRN PRN Anxiety 06/28/20 [History Last Taken Unknown] diazepam 2 mg tablet (Valium) 2 mg PO TID PRN anxiety #7 tabs 09/06/20 [Rx Last Taken Unknown] doxycycline hyclate 100 mg tablet 100 mg PO BID 12/07/20 [History Last Taken Unknown] nitroglycerin 0.4 mg sublingual tablet 0.4 mg sublingual Q5M PRN Chest Pain #25 tabs 05/23/21 [Rx Last Taken Unknown] clopidogrel 75 mg tablet 75 mg PO DAILY #90 tabs 07/14/21 [Rx Last Taken Unknown] potassium chloride 10 mEq capsule,extended release See Rx Instructions .Route .COMPLEX #240 caps 08/15/21 [Rx Last Taken Unknown] metoprolol succinate 50 mg tablet,extended release 24 hr See Rx Instructions .Route .COMPLEX #90 tabs 01/15/22 [Rx Last Taken Unknown] pravastatin 20 mg tablet 20 mg PO QHS #30 tabs 03/08/22 [Rx Last Taken Unknown] Allergy/AdvReac Type Severity Reaction Status Date / Time clindamycin AdvReac Unknown Unknown Verified 03/15/22 12:59 doxepin AdvReac Nausea/Vom/ Verified 03/15/22 12:59 Diarrhea guanfacine AdvReac Nausea/Vom/ Verified 03/15/22 12:59 Diarrhea Penicillins AdvReac Hives Verified 03/15/22 12:59 Family History Father Heart disease Surgical History Aortocoronary bypass status (~1998) History of cholecystectomy History of hernia repair History of skin graft History of toe surgery Presence of stent in coronary artery (~08/11/02) Status post debridement (~1993) Social History Smoking Status: Never smoker alcohol intake: never caffeine: Yes Type: carbonated beverages Number of servings: 2 ROS ROS ED ROS Narrative Patient is unable to give any history due to his dementia. states he has not recently been ill. Review of Systems ROS Unobtainable: due to mental status Constitutional Constitutional ED: Denies chills or fever(s) Eyes Eyes: Denies blurry vision ENT ENT ED: Denies ear pain Cardiovascular Cardiovascular: Denies chest pain Respiratory/Chest Respiratory/Chest: Denies cough Gastrointestinal Gastrointestinal: Denies abdominal pain Genitourinary Genitourinary ED: Denies dysuria Musculoskeletal Musculoskeletal: Denies arthralgias Integumentary Denies abscess Neurologic Neurologic: Denies headache(s) Psychiatric Psychiatric: Denies anxiety Endocrine Endocrinology: Denies cold intolerance Hematologic/Lymphatic Hematologic/Lymphatic: Reports none Allergic/Immunologic Allergic/Immunologic ED: Denies mouth swelling or tongue swelling EXAM Physical Exam Narrative Exam Narrative: 63-year-old male was yelling out into the hallway. Vital signs are stable. He is afebrile. He does not look septic or toxic. He is in no distress. at bedside. H EENT exam unremarkable atraumatic. Moist Riis members. Neck nontender. Lungs clear to auscultation bilaterally. Heart regular rhythm rate about 115 no murmur. Abdomen soft nontender normal bowel sounds no peritoneal signs. Chest wall nontender. Pelvic girdle intact. Back nontender. Moving all 4 extremities. Normal trimmer hand strength. Dorsi plantarflexion intact. Nontender no deformity. Neurologically is awake and alert. He does have dementia. At times he gets agitated and will yell. Const Vital Signs: 03/15/22 12:57 03/15/22 14:56 Temperature 99.0 F Temperature Source Oral Pulse Rate 118 H 140 H Respiratory Rate 10 L 23 H Blood Pressure 148/87 H 149/91 H Blood Pressure Mean 107 110 Pulse Ox 94 94 Oxygen Delivery Method Room Air Room Air Positive well nourished, well developed and obese; Negative for cachectic, contractures or unkempt General Appearance ED: well developed and NAD; Negative for unkempt, cachectic, contractures, cyanotic or diaphoretic Nutritional Appearance: obese; Negative for cachectic HEENT Reports moist mucous membranes Negative for trauma or tenderness Eyes PERRL and EOMs intact bilaterally General Eye ED: Negative for pale conjunctiva Neck no lymphadenopathy, supple and no JVD General: Negative for tenderness Resp normal respiratory effort and clear to auscultation bilaterally Effort and Inspection: Negative for retractions Auscultation: Negative for rales, rhonchi or wheezes Cardio regular rhythm, S1 normal heart sound, S2 normal heart sound and no murmurs; Negative for regular rate Palpation: Negative for palpable S3 Rate: tachycardic; Negative for bradycardia GI normal to inspection, nondistended, normoactive bowel sounds, non-tender, non-distended and no masses Inspection: Negative for abdominal distention Auscultation: normoactive bowel sounds Palpation: soft; Negative for tender or guarding Back/Spine no CVA tenderness General Back: Negative for CVA tenderness Cervical Spine: Negative for cervical spine tenderness Thoracic Spine / Upper Back: Negative for thoracic spinal tenderness Lumbar Spine / Lower Back: Negative for lumbar spinal tenderness Extremity normal to inspection General Extremety ED: Negative for edema or tenderness General Extremity: Negative for edema Neuro No oriented x3 Sensorium / Orientation: alert and orientation impaired; Negative for lethargic or stuporous Motor Exam: strength 5/5 throughout Psych Negative for mental status grossly normal Appearance: Negative for unkempt Attitude: agitated Mood & Affect: anxious; Negative for depressed or tearful Skin no rashes or lesions noted and no wounds Lesions: No lesion noted Rashes: No rashes noted Trauma: Negative for abrasion Wounds: Negative for wounds noted MDM MDM MDM Narrative Medical decision making narrative: 67-year-old demented male that is agitated today. Was physically aggressive at home. He will be given IM Geodon. ED mental health geriatric assessment will be performed. CAT scan labs. Repeat exam about an hour after the patient was placed in restraints. He has been treated with both IM Geodon and IV Ativan. Currently he is resting comfortably. is at bedside. He will be given oral K-Dur for his hypokalemia. Discussed with our social organization professor evaluated the patient. He will need to be sent to a geriatric psychiatric facility. She is starting to work on that process. Patient to be checked out to the oncoming afternoon physician. Lab Data Attestation: I reviewed the patient's lab results. Lab results narrative: CBC shows a white count 9.5. H&H 15 and 44. Platelets 235. Electrolytes show potassium of 2.3 gap of 10 normal BUN and creatinine. Glucose 190. EtOH less than 3. COVID test negative. Labs: Laboratory Results - last 24 hr 03/15/22 03/15/22 03/15/22 13:03 13:03 13:03 WBC 9.5 RBC 4.95 Hgb 15.0 Hct 44.0 MCV 88.9 MCH 30.3 MCHC 34.1 RDW Std Deviation 43.1 RDW Coeff of Josee 13.3 Plt Count 235 MPV 10.8 Immature Gran % (Auto) 0.200 Neut % (Auto) 59.9 Lymph % (Auto) 29.9 [place] % (Auto) 8.1 Eos % (Auto) 1.5 Baso % (Auto) 0.4 Absolute Neuts (auto) 5.7 Absolute Lymphs (auto) 2.84 Nucleated RBC % 0 Sodium 141 Potassium 2.3 L* Chloride 107 Carbon Dioxide 24.0 Anion Gap 10 BUN 5 L Creatinine 0.82 Estim Creat Clear Calc 83.97 Est GFR (MDRD) Af Amer 121 Est GFR (MDRD) Non-Af 100 BUN/Creatinine Ratio 6.1 L Glucose 190 H Calcium 8.7 Ethyl Alcohol < 3.0 Rhythm Strip Rhythm Strip: Sinus Tach Rate: 117 EKG Initial EKG: Attestation: I personally reviewed and interpreted this EKG as follows: Interpretation: No Acute Injury Pattern and Sinus Tachycardia Comments: Sinus tachycardia rate 117 no acute signs of OK or ischemia. Unchanged from prior. Prior EKG tracings: available for review Prior: Unchanged Discharge Plan Triage Chief Complaint: Alt LOC Other Complaint: Mental Health ED Provider: Gerber Guevara Dx/Rx/DC Orders Clinical Impression: Dementia, Aggressive behavior, Adult failure to thrive, History of coronary artery disease Prescriptions: No Action folic acid 1 mg tablet 1 mg PO QDAY vitamin B complex [B Complex-Vitamin B12] tablet 1 tab PO QDAY quetiapine [Seroquel] 100 mg tablet 200 mg PO QHS pregabalin [Lyrica] 100 mg capsule 100 mg PO BID aspirin 81 mg tablet,delayed release (DR/EC) 81 mg PO QDAY melatonin 3 mg tablet 9 mg PO HS PRN (Reason: Anxiety/Insomnia) topiramate [Topamax] 50 mg tablet 300 mg PO BID erenumab-aooe 70 mg/mL auto-injector 140 mg SC QMONTH 30 Days Qty: 2 Label Comments: INJECT SUBCUTANEOUSLY ONCE A MONTH IN BACK OF UPPER ARMS, THIGHS OR ABDOMEN KEEP REFRIGERATED doxycycline hyclate 100 mg tablet 100 mg PO BID niacin 500 MG tablet extended release 24 hr 500 mg PO QHS omeprazole 20 MG capsule 20 mg PO DAILY lorazepam 1 MG tablet 1 mg PO TID PRN PRN (Reason: Anxiety) hydromorphone 4 MG tablet 4 mg PO Q6H PRN PRN (Reason: Pain) multivitamin,qb-gqyq-dqrwluls 1 TABLET tablet 1 tab PO DAILY duloxetine 60 MG capsule 60 mg PO BID oxybutynin chloride 5 mg tablet 15 mg PO QHS temazepam 15 MG capsule 15 mg PO QHS PRN PRN (Reason: Anxiety) diazepam [Valium] 2 mg tablet 2 mg PO TID PRN (Reason: anxiety) Qty: 7 0RF Rx Instructions: stop all other benzodiazepams, take one tab by mouth an hour before imaging and another tab 30 mins prior to imaging nitroglycerin 0.4 mg tablet, sublingual 0.4 mg SUBLINGUAL Q5M PRN (Reason: Chest Pain) Qty: 25 3RF clopidogrel 75 mg tablet 75 mg PO DAILY Qty: 90 3RF potassium chloride 10 mEq capsule, extended release See Rx Instructions .ROUTE .COMPLEX Qty: 240 11RF Dose Instruction: TAKE 4 CAPSULE BY MOUTH TWICE DAILY FOR INTRINSIC HYPOKALEMIA EVEN WITHOUT DIURETICS. Rx Instructions: TAKE 4 CAPSULE BY MOUTH TWICE DAILY FOR INTRINSIC HYPOKALEMIA EVEN WITHOUT DIURETICS. metoprolol succinate 50 mg tablet extended release 24 hr See Rx Instructions .ROUTE .COMPLEX Qty: 90 3RF Dose Instruction: TAKE 1 TABLET BY MOUTH EVERY DAY Rx Instructions: TAKE 1 TABLET BY MOUTH EVERY DAY pravastatin 20 mg tablet 20 mg PO QHS Qty: 30 12RF Primary Care Provider: Alyssia Epperson Referrals: Alyssia Epperson DO [Primary Care Provider] - Disposition Disposition: Psychiatric Hospital or Unit
[2022-03-15 13:40] LABS: Absolute Lymphocyte Count 2.84 X10^3/uL (0.83-4.51); Absolute Neutrophil Count 5.7 X10^3/uL (2.0-7.7); Basophil# 0.04 X10^3/uL; Basophil% 0.4 % (0-1); Eosinophil# 0.14 X10^3/uL; Eosinophils% 1.5 % (0-5); Lymphocyte # 2.84 X10^3/ul (0.83-4.51); Lymphocyte % 29.9 % (19-41); Mean Corp Hgb Conc 34.1 g/dL (32-36); Mean Corpuscular Hgb 30.3 pg (27.0-32.0); Mean Corpuscular Volume 88.9 fL (80-94); Mean Platelet Vol. 10.8 fl (6.2-12.0); Monocyte# 0.77 X10^3/uL; Monocyte% 8.1 % (0-10); NRBC Flagged by Analyzer 0 % (0-5); Neutrophil % 59.9 % (47-70); Platelet Count 235 K/mm3 (150-450); RBC Distribution Width CV 13.3 % (11.6-14.6); RBC Distribution Width SD 43.1 fl (35.1-43.9); Red Blood Count 4.95 M/mm3 (4.6-6.2); White Blood Count 9.5 K/mm3 (4.4-11.0)
[2022-03-15 13:47] LABS: Alcohol, Blood (Medical)-Serum < 3.0 mg/dL
[2022-03-15] MEDS: Ziprasidone IM 20 MG/ML VIAL IM ×2 (13:47→21:36)
[2022-03-15 13:51] LABS: Anion Gap 10 (5-15); BUN 5 mg/dL (7-18); BUN/Creat Ratio 6.1 RATIO (10-20); Calcium,Total 8.7 mg/dL (8.5-10.1); Chloride 107 mmol/L (98-107); Creatinine, Serum 0.82 mg/dL (0.70-1.30); EST Glomerular Filtration Rate 100 mL/min (>60); Est Glom Filt Rate - Afr Amer 121 mL/min (>60); Estimated Creatinine Clearance 83.97 ml/min; Glucose 190 mg/dL (74-106); Potassium 2.3 mmol/L (3.5-5.1); Sodium Level 141 mmol/L (136-145)
--- NOTE | 2022-03-15 14:48 | ED.RN ---
PT BECOMES AGITATED AND WALKS OUT OF ROOM WITH BLOOD PRESSURE CUFF AND CORD ATTACHED TO PT ARM. PT WALKS INTO SECURITY OFFICE DOOR AND HRO AND BUILDING CONSTRUCTION CONTRACTOR ATTEMPT TO DE-ESCALATE PATIENT AND BRING HIM BACK TO ROOM. PT BEGAN YELLING AND RAISES ARMS UP TOWARDS HRO. HRO AND CORE DRILLER TAKE PATIENT BACK TO ROOM. PT VERBALLY AGGRESSIVE WITH STAFF AND YELLING PROFANITIES AT [facility], SECURITY AND NURSING STAFF. PT PLACED IN FOUR POINT LEATHER RESTRAINTS FOR SAFETY OF PATIENT AND STAFF. NEW ORDER FOR ATIVAN 1 MG OBTAINED AND GIVEN BY JASE PLEITEZ VIA IV. PT PROCEEDS TO CALL THIS RN A DUMB BITCH. THIS RN TALKS TO AND EXPLAINS WHY PATIENT IS RESTRAINED. PTS VERBALIZES UNDERSTANDING AT THIS TIME.
[2022-03-15] MEDS: LORazepam 2 MG/ML Syringe 1 MG IV ×2 (14:53→16:41)
[2022-03-15 14:56] VITALS: BP 149/91; PULSE 140; RESP 23; O2SAT 94
--- NOTE | 2022-03-15 15:09 | CM.ED ---
CARYN Note Referral Source: MD Referral Reason: Mental Health SW was unable to interview patient due to his restlessness and agitation. Thus, SW interviewed his , Lydia Díaz. Chief Complaint: SW met with Lydia. Lydia said that she generally does not leave patient alone for a long time and this morning she ran to the local store for a short time and when she got home the TV set, which was bolted to the floor, was pulled off the sand and overturned and all the CD's, DVD's and VHS were all over the floor and the TV was also cracked. Patient told Lydia we have a mess to clean up. Lydia told patient not to worry and she made him breakfast. Lydia said that her mom called to see if she was ok and had said that patient had called Lydia's mom. Lydia asked patient if he had called her mother and patient did not remember calling Lydia's mom and Lydia showed him the phone and he got irritated and ran me out of the house and broke the phone in half. Laquita said that after patient broke the phone he wouldn't let her back in the house and she had to call her daughter, who lives 10 minutes away, and her daughter came and they called the [facility]'s department. Patient is and has been for 42 years. All family members live 10 minutes from patient and Lydia. Gender:Male Sexual Orientation: Heterosexual Living Situation: Patient resides with his . Lydia said that their granddaughter used to come and visit and stay the night but they haven't done that for awhile as patient is voiceorous at times and I don't want her to remember her grandfather that way. Support and Resources: Patient's support is his , mother in law and daughter which all reside locally. Education and Employment: Patient graduated from high school. No learning issues or delays. Patient has a associates degree in [employer]. 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 Mental Health Treatment: Lydia stated that in 2016 patient had a breakdown which she described as being irritable, agitated and in another zone and he went to hospital in [place] for psych treatment. Lydia stated that patient was at the hospital (which was [facility] but a medical [facility] with psych unit) in [place] and was there for a week and then went out for a weekend to a facility and had an outbursts and then back to the hospital and was there again for 1-2 weeks and Lydia took him home and he has been home since. Lydia johnny that patient had a psychiatrist that retired last month. Lydia said that patient gets attached to people so when the psychiatrist retired she asked the family medical doctor to prescribe the psychiatric medication and the MD agreed as long as Lydia had control over the meds, which Lydia voiced she has. Patient is prescribed Ativan and Seroquel. Lydia said that patient also takes pain medication and the doctor had felt that maybe the pain has been overwhelming him and thus he was more agitated. Lydia also said that in January patient went on Medicare and thus some of his medication, that was previously prescribed, they are having to pay for and it is expense and so patient is aware of the expense and had reduced the medication because of the cost and is not taking the medication as prescribed. Triggers and Stressors: Doorbells as he likes it quiet, confrontation Coping Skills: Music and talking to him Abuse Issues: Lydia denied any abuse issues Substance Abuse: Denied by Lydia Suicidal: Patient, naa Freeman, has not voiced suicidal ideation but she thinks he might be ready as he talks to God. Homicidal: Denied per Lydia Violence: Patient, naa Freeman, cut himself this morning as he said that he has the sandra of the devil. Patient broke a TV and phone today. CARYN asked about violence to and others and said no one else is around. Lydia said that patient has never hurt her or been abusive but has grabbed her arms. Ldyia said that patient is diagnosed with Psychotic Dementia in 2016. When CARYN had interviewed patient's , Lydia, patient was alone in his room and attempted to escape the emergency room. Patient was chemically and physically restrained for his own safety. Lydia also voiced that patient talks to God and Holden which he did this morning. In the past patient has talked to the devil per Lydia. Appearance: Disheveled Mood and Affect: Restless, Agitated Communication Pattern: Patient unable to communicate effectively. Per police patient was unable to provide personal information this morning. Thought Process: Patient, per family, is talking to God, Devil and Holden. SW consulted with MD Guevara. Plan is for inpatient psych for stabilization and medication management. Rabia BLACKWELL
[2022-03-15 16:00] VITALS: RESP 22
--- NOTE | 2022-03-15 17:16 | ED.RN ---
PT CONTINUES TO YELL AT THIS TIME. PT REMAINS IN RESTRAINTS
[2022-03-15 17:17] LABS: Magnesium 1.8 mg/dL (1.6-2.6)
[2022-03-15 18:00] VITALS: RESP 24
[2022-03-15] MEDS: Potassium Chloride 10mEq/100mL 10 MEQ/100 ML IV.SOLN. 100 MEQ IV BOLUS ×2 (18:41→20:04)
[2022-03-15 18:54] LABS: Amphetamine Urine VISTA NEGATIVE (<1000 ng/mL); Barbiturate Urine VISTA NEGATIVE (< 200 ng/mL); Benzodiazepine Urine VISTA NEGATIVE (< 200 ng/mL); Cocaine Urine VISTA NEGATIVE (< 300 ng/mL); Ecstacy Urine VISTA NEGATIVE (< 500 ng/mL); Methadone Urine VISTA NEGATIVE (< 300 ng/mL); PCP Urine VISTA NEGATIVE (< 25 ng/mL); THC Urine VISTA NEGATIVE (< 50 ng/mL); Vista UDS pH Range 5
[2022-03-15] MEDS: Ketamine HCl 500 MG/5 ML Vial 50 MG IV (19:46)
[2022-03-15 20:00] VITALS: PULSE 105; RESP 21; O2SAT 95
--- NOTE | 2022-03-15 20:31 | CM.ED ---
CARYN faxed POA and covid screen to [facility]. CARYN called [facility] to get accepting MD. CARYN left message requesting that staff call the main ED number. Number provided Rabia BLACKWELL
--- NOTE | 2022-03-15 21:45 | SUR.HOLD ---
PT BECOMES AGITATED AND GRABS BY THE ARM WHILE SITTING ON THE EDGE OF THE BED, OFFICE AGUSTIN ASKED TO COME IN TO HELP THIS RN DE-ESCALATE. OFFICER AGUSTIN ATTEMPTS TO ASSIST PATIENT BACK INTO BED- PT BECOMES INCREASINGLY AGITATED. OFFICER AGUSTIN CALLS FOR BACK UP AT THIS TIME. VERBAL ORDER FROM DR DRIVER FOR 20 MG OF GEODON NOW. IM GEODON GIVEN BY MAIK NESS. AND DAUGHTER PRESENT- DAUGHTER ASSISTS WITH VERBAL DE-ESCALATION OF FATHER. WILL CONTINUE TO MONITOR.
--- NOTE | 2022-03-15 21:52 | ED.RN ---
Addendum entered by Bernarda Hutchins 03/15/22 22:11: THIS RN REMINDS DR DRIVER THAT POTASSIUM HAS AN ANTIDOTE-HYALURONIDASE. NO NEW ORDERS AT THIS TIME. Original Note: UPON DC OF IV POTASSIUM, THIS RN NOTES THAT IV SITE IS INFILTRATED. THIS RN STOPS INFUSION, CALLS PHARMACY AND LOOKS UP IV EXTRVASATION IN [facility] AND POLICY STAT. THIS RN NOTIFIED DR. DRIVER, NO NEW ORDERS AT THIS TIME. IV SITE DISCONTINUED AND THIS RN ATTEMPTS TO ASPIRATE ANY FLUID WHILE DISCONTINUING IV. NO FLUID NOTED. THIS RN ATTEMPTS TO PLACE AN ICE PACK ON ARM AND PT TELLS THIS RN TO GO TO HELL. PT ALSO REFUSING TO ELEVATE LIMB AT THIS TIME. THIS RN TO MONITOR SITE FOR INCREASED REDNESS OR SWELLING.
[2022-03-15 22:00] VITALS: RESP 18
[2022-03-16] VITALS: RESP 15
[2022-03-16 04:00] VITALS: RESP 16
--- NOTE | 2022-03-16 04:20 | NURSING ---
[facility] CALLED THEY DO NOT WANT NURSE TO NURSE UNTIL AFTER SHIFT CHANGE ([phone])
[2022-03-16 05:00] VITALS: BP 149/90; PULSE 100; RESP 20; TEMP 37.2; O2SAT 95
== END 2022-03-16 07:11 ==
PROVIDERS: Emergency Provider Emergency Medicine; PCP Family Medicine; Visit Provider Emergency Medicine
DX: F03.90 Unspecified dementia, unspecified severity, without behavioral disturbance, psychotic disturbance, mood disturbance, and anxiety (principal); J44.9 Chronic obstructive pulmonary disease, unspecified; I11.0 Hypertensive heart disease with heart failure; I50.32 Chronic diastolic (congestive) heart failure; F31.9 Bipolar disorder, unspecified; I25.10 Atherosclerotic heart disease of native coronary artery without angina pectoris; E78.00 Pure hypercholesterolemia, unspecified; R62.7 Adult failure to thrive; E87.6 Hypokalemia; Z95.5 Presence of coronary angioplasty implant and graft; Z95.1 Presence of aortocoronary bypass graft; Z86.73 Personal history of transient ischemic attack (TIA), and cerebral infarction without residual deficits; K21.9 Gastro-esophageal reflux disease without esophagitis; I45.10 Unspecified right bundle-branch block; R41.82 Altered mental status, unspecified; Z79.899 Other long term (current) drug therapy
CPT/HCPCS: 70450; 80048; 80307; 82077; 83735; 85025; 87811; 93005; 99285; J7030; J7050; A4216; J3486

== ENCOUNTER → 2022-04-25 | Outpatient (REF) | payer SELFPAY ==
[2022-04-25 07:13] LABS: Absolute Lymphocyte Count 2.37 X10^3/uL (0.83-4.51); Absolute Neutrophil Count 7.3 X10^3/uL (2.0-7.7); Basophil# 0.06 X10^3/uL; Basophil% 0.6 % (0-1); Eosinophil# 0.28 X10^3/uL; Eosinophils% 2.6 % (0-5); Hemoglobin 13.8 g/dL (13.0-16.5); Lymphocyte # 2.37 X10^3/ul (0.83-4.51); Mean Platelet Vol. 9.7 fl (6.2-12.0); Monocyte% 6.5 % (0-10); NRBC Flagged by Analyzer 0 % (0-5); Neutrophil # 7.27 X10^3/uL (2.7-7.7); Neutrophil % 67.6 % (47-70); Platelet Count 200 K/mm3 (150-450); RBC Distribution Width CV 14.7 % (11.6-14.6); RBC Distribution Width SD 54.5 fl (35.1-43.9); White Blood Count 10.8 K/mm3 (4.4-11.0)
[2022-04-25 07:38] LABS: Anion Gap 10 (5-15); BUN 11 mg/dL (7-18); BUN/Creat Ratio 16.1 RATIO (10-20); Calcium,Total 8.8 mg/dL (8.5-10.1); Chloride 108 mmol/L (98-107); Creatinine, Serum 0.68 mg/dL (0.70-1.30); EST Glomerular Filtration Rate 124 mL/min (>60); Est Glom Filt Rate - Afr Amer 149 mL/min (>60); Glucose 134 mg/dL (74-106); Potassium 3.7 mmol/L (3.5-5.1); Sodium Level 139 mmol/L (136-145)
== END ==
LOC: OLS.SW 05:00
PROVIDERS: PCP Family Medicine; Visit Provider Internal Medicine
DX: I10 Essential (primary) hypertension (principal); Z79.899 Other long term (current) drug therapy
CPT/HCPCS: 36415; 80048; 85025

== ENCOUNTER → 2023-02-05 | Outpatient (CLI) | payer MEDICARE, OTHER, SELFPAY ==
[2023-02-05 15:14] LABS: Absolute Neutrophil Count 5.8 X10^3/uL (2.0-7.7); Basophil# 0.04 X10^3/uL; Basophil% 0.4 % (0-1); Eosinophil# 0.15 X10^3/uL; Eosinophils% 1.6 % (0-5); Hematocrit 48.7 % (40-54); Hemoglobin 16.1 g/dL (13.0-16.5); Lymphocyte % 30.7 % (19-41); Mean Corp Hgb Conc 33.1 g/dL (32-36); Mean Corpuscular Hgb 31.3 pg (27.0-32.0); Mean Corpuscular Volume 94.6 fL (80-94); Mean Platelet Vol. 10.7 fl (6.2-12.0); Monocyte# 0.56 X10^3/uL; Monocyte% 5.9 % (0-10); NRBC Flagged by Analyzer 0 % (0-5); Neutrophil # 5.78 X10^3/uL (2.7-7.7); Neutrophil % 61.1 % (47-70); Platelet Count 198 K/mm3 (150-450); RBC Distribution Width CV 12.7 % (11.6-14.6); RBC Distribution Width SD 44.4 fl (35.1-43.9); Red Blood Count 5.15 M/mm3 (4.6-6.2); White Blood Count 9.5 K/mm3 (4.4-11.0)
[2023-02-05 15:35] LABS: Valproic Acid (Depakene) Level 21 ug/mL (50-100)
[2023-02-05 16:08] LABS: AST(SGOT) 10 U/L (15-37); Alanine Aminotransfer ALT/SGPT 18 U/L (16-61); Albumin, Serum 3.7 g/dL (3.2-5.0); Alkaline Phosphatase 99 U/L (45-117); Anion Gap 8 (5-15); BUN 16 mg/dL (7-18); Chloride 108 mmol/L (98-107); Cholesterol 134 mg/dL (200); Creatinine, Serum 0.89 mg/dL (0.70-1.30); EST Glomerular Filtration Rate 91 mL/min (>60); Est Glom Filt Rate - Afr Amer 110 mL/min (>60); Globulin 3.6 g/dL (2.2-4.2); Glucose 154 mg/dL (74-106); High Density Lipoprotein 50 mg/dL; Potassium 3.7 mmol/L (3.5-5.1); Protein, Total 7.3 g/dL (6.4-8.2); Sodium Level 142 mmol/L (136-145); Triglycerides 137 mg/dL; Very Low Density Lipoprotein 27 mg/dL (5-40)
[2023-02-05 16:20] LABS: Hemoglobin A1c 5.3 % (3.8-5.6)
[2023-02-05 16:26] LABS: Microalbumin,Random Urine 16.8 mg/L (NO RANGE EST.); Microalbumin:Creatinine Ratio 9.4 mg/g CRE (<30 mg/g CRE)
[2023-02-08 16:09] LABS: Topiramate 6.7 ug/mL (2.0-25.0)
== END | disposition home or self-care (01) ==
PROVIDERS: PCP Family Medicine; Referring Provider Family Medicine; Visit Provider Family Medicine
DX: E11.9 Type 2 diabetes mellitus without complications (principal); G40.909 Epilepsy, unspecified, not intractable, without status epilepticus; I10 Essential (primary) hypertension; Z51.81 Encounter for therapeutic drug level monitoring
CPT/HCPCS: 36415; 80053; 80061; 80164; 80201; 82043; 82570; 83036; 85025

== ENCOUNTER 2023-10-22 08:55 | Day surgery (SDC) | payer MEDICARE, OTHER, SELFPAY ==
[2023-09-30 15:07] LABS: Absolute Lymphocyte Count 3.16 X10^3/uL (0.83-4.51); Absolute Neutrophil Count 7.7 X10^3/uL (2.0-7.7); Basophil# 0.06 X10^3/uL; Basophil% 0.5 % (0-1); Eosinophil# 0.31 X10^3/uL; Eosinophils% 2.5 % (0-5); Hematocrit 41.9 % (40-54); Hemoglobin 14.2 g/dL (13.0-16.5); Lymphocyte # 3.16 X10^3/ul (0.83-4.51); Lymphocyte % 25.9 % (19-41); Mean Corp Hgb Conc 33.9 g/dL (32-36); Mean Corpuscular Hgb 30.6 pg (27.0-32.0); Mean Corpuscular Volume 90.3 fL (80-94); Mean Platelet Vol. 10.3 fl (6.2-12.0); Monocyte# 0.94 X10^3/uL; Monocyte% 7.7 % (0-10); NRBC Flagged by Analyzer 0 % (0-5); Neutrophil # 7.69 X10^3/uL (2.7-7.7); Neutrophil % 63.1 % (47-70); Platelet Count 249 K/mm3 (150-450); RBC Distribution Width CV 12.3 % (11.6-14.6); RBC Distribution Width SD 40.9 fl (35.1-43.9); Red Blood Count 4.64 M/mm3 (4.6-6.2); White Blood Count 12.2 K/mm3 (4.4-11.0)
[2023-10-22] VITALS (8 sets, daily range): BP systolic 74–98; BP diastolic 49–56; PULSE 50–72; RESP 16–18; TEMP 36.3–36.8; O2SAT 99–100; BMI 29.9
--- NOTE | 2023-10-22 09:14 | HP.PCM_ITS ---
History and Physical Date of Admission: 10/22/23 Allergies clindamycin Adverse Reaction (Unknown, Verified 09/30/23 13:27) Unknowndoxepin Adverse Reaction (Verified 09/30/23 13:27) Nausea/Vom/Diarrheaguanfacine Adverse Reaction (Verified 09/30/23 13:27) Nausea/Vom/DiarrheaPenicillins Adverse Reaction (Verified 09/30/23 13:27) Hives Medications multivitamin,iq-pftz-ubwedwaj 27 mg-0.4 mg tablet 1 tab PO DAILY 08/15/15 [History Confirmed 09/30/23] omeprazole 20 mg capsule,delayed release 20 mg PO DAILY 08/15/15 [History Confirmed 09/30/23] folic acid 1 mg tablet 1 mg PO QDAY 06/24/17 [History Confirmed 09/30/23] nitroglycerin 0.4 mg sublingual tablet 0.4 mg sublingual Q5M PRN Chest Pain #25 tabs 05/23/21 [Rx Confirmed 09/30/23] pravastatin 20 mg tablet 20 mg PO QHS #30 tabs 03/08/22 [Rx Confirmed 09/30/23] lacosamide 50 mg tablet (Vimpat) 50 mg PO BID 05/15/22 [History Confirmed 09/30/23] topiramate 100 mg tablet 150 mg (1.5 x 100 mg) PO QHS #45 tabs 06/04/22 [Rx Confirmed 09/30/23] clopidogrel 75 mg tablet 75 mg PO DAILY #90 tabs 11/05/22 [Rx Confirmed 09/30/23] hydromorphone 4 mg tablet mg PO Q8H PRN 11/21/22 [History Confirmed 09/30/23] metoprolol succinate 50 mg tablet,extended release 24 hr See Rx Instructions .Route .COMPLEX #90 tabs 02/26/23 [Rx Confirmed 09/30/23] ascorbic acid (vitamin C) 500 mg tablet 500 mg PO DAILY 04/08/23 [History Confirmed 09/30/23] cholecalciferol (vitamin D3) 25 mcg (1,000 unit) tablet 25 mcg PO DAILY 04/08/23 [History Confirmed 09/30/23] hydrochlorothiazide 12.5 mg tablet 12.5 mg PO DAILY 04/08/23 [History Confirmed 09/30/23] oxybutynin chloride 15 mg tablet,extended release 24 hr 15 mg PO DAILY 04/08/23 [History Confirmed 09/30/23] potassium chloride 20 mEq tablet,extended release 20 meq PO BID 04/08/23 [History Confirmed 09/30/23] zinc gluconate 50 mg tablet 50 mg PO DAILY 04/08/23 [History Confirmed 09/30/23] divalproex 125 mg tablet,delayed release (Depakote) 125 mg PO TID #90 tabs 08/21/23 [Rx Confirmed 09/30/23] ramelteon 8 mg tablet 8 mg PO QHS #30 tabs 08/21/23 [Rx Confirmed 09/30/23] risperidone 1 mg tablet 2.5 mg (2.5 x 1 mg) PO DAILY 30 days #75 tabs 08/21/23 [Rx Confirmed 09/30/23] suvorexant 20 mg tablet 20 mg PO QHS #30 tabs 08/21/23 [Rx Confirmed 09/30/23] lorazepam 1 mg tablet 1 mg PO BID PRN Anxiety #60 tabs 09/09/23 [Rx Confirmed 09/30/23] PFSH Medical History Abscess of left elbow Atherosclerotic heart disease of [place] coronary artery without angina pectoris Bipolar 1 disorder Chronic diastolic heart failure COPD (chronic obstructive pulmonary disease) CVA (cerebral vascular accident) Degenerative disc disease Essential hypertension GERD (gastroesophageal reflux disease) Hypokalemia Insomnia due to mental condition Pure hypercholesterolemia Seizures Unspecified psychosis Surgical History Aortocoronary bypass status (~1998) History of cholecystectomy History of hernia repair History of skin graft History of toe surgery Presence of stent in coronary artery (~08/11/02) Status post debridement (~1993) Family History Father Heart disease Social History Smoking Status: Never smoker alcohol intake: never caffeine: Yes Type: carbonated beverages Number of servings: 2 HPI HPI HPI: 68-year-old gentleman is being referred by Dr. Alyssia Epperson for surgical consultation regarding positive Cologuard test and a written copy my surgical consult recommendations will return to her. I history reviewed has had a previous cholecystectomy is apparent that he has had a previous upper and lower endoscopy in 2012. He does have coronary vascular disease and has had coronary bypass x 3 in 1998 and 3 coronary stents in 2002. Among his many other medications he is on clopidogrel and omeprazole. His positive Cologuard test was dated August 19, 2023. The most recent laboratory I have access to was February 05, 2023 where his hemoglobin 16.1 and hematocrit 48.7 with a platelet count of 198,000. 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 He is undergoing therapy. He has no abdominal pain issues. He has had a previous cholecystectomy and a previous hernia repair. He is accompanied by his who helps correct some of his answers. The patient denies any bright red blood per rectum or melena. No abdominal pain. No change of bowel habits. No family history of colon cancer. He states that his general health has been stable ROS General General: Yes weight change (loss); No appetite, fatigue, colon cancer, breast cancer or weakness HEENT HEENT: No difficulty swallowing, eye injury, eye surgery, swollen glands or hoarseness Endo Endocrine: Yes diabetes mellitus; No thyroid disease, thyroid cancer, Hair loss, heat intolerance or cold intolerance Skin Skin: No rash or changing moles Musc Musculoskeletal: Yes back problems; No arthritis, rheumatoid arthritis, gout or joint pain Cardio Cardiovascular: Yes heart stent; No murmur, pacemaker, heart disease, atrial fibrillation, high blood pressure, heart attack, palpitations, shortness of breat with exertion or chest pain Psych Psychiatric: No depression, anxiety or hearing voices Resp Respiratory: No shortness of breath, No sleep apnea, No cough, No COPD, No asthma, No emphysema and No wheezing Gastro Gastrointestinal: No abdominal pain, No nausea or vomiting, No diarrhea, No constipation, No blood in stool, Yes acid reflux, No hemorrhoids, No ulcers, No gallbladder problem and No black,tarry stools Robert Hematologic: Yes blood thinners, No blood disorders, No bleeding, No anemia and No blood clots Additional Details: plavix Neuro Neurologic: No numbness, No tingling and No weakness Exam Const General: cooperative, comfortable and no acute distress Nutritional Appearance: overweight HENMT Head: normal to inspection Eyes General: appearance normal, both eyes and all related structures Neck Neck: normal visual inspection Chest Chest palpation & inspection: normal inspection of the chest Resp Effort & Inspection: normal respiratory effort Other: Very slight left basilar wheeze. Right base is clear Cardio Rate: regular rate Rhythm: regular rhythm GI Other: Soft, nontender, slight bruising right lower quadrant though no mass. Musc Cervical Spine: normal cervical lordosis Skin Other: Superficial left pretibial abrasion noted covered with a Band-Aid. Neuro General: patient alert and patient oriented x3 Extrem General: no calf tenderness Psych Other: Patient appears to be alert and aware of his situation and place Assessment and Plan Assessment and Plan (1) Positive colorectal cancer screening using Cologuard test: Status: Acute Plan: I do recommend to the patient a combined esophagogastroduodenoscopy and colonoscopy with possible biopsy or polypectomy as indicated. He is aware of the technique, benefit, risk, alternatives. Previous upper and lower endoscopies were 2013. The patient is on clopidogrel and we will have him hold that 5 days preprocedure. We will also check a updated CBC for him. He has had an opportunity to ask and have questions answered. We will schedule and proceed at his discretion. I appreciate the opportunity of assisting with his surgical care. Copy: Dr. Alyssia Burns M.D., F.A.C.S I have examined the patient and the H&P has been reviewed. There are no clinical changes since date of exam. White blood cells count was 12.2 and hemoglobin is 14.1. Sabino Burns M.D., F.A.C.S.
[2023-10-22] MEDS: Lactated Ringers 1,000 ML 15 ML IV (09:37)
[2023-10-22 09:59] LABS: Bedside Glucose 103 mg/dL (74-106)
--- NOTE | 2023-10-22 10:00 | IMM_PTH ---
PATIENT: ZHANE JEAN LOC: [facility] U#:[id number] AGE/SX: 68/M ROOM: RE10/22/[address]: Dr. Sabino Burns MD : 1955 BED: DIS: 10/22/2023 SPEC #: [id number] RECD: 10/22/23 14:15 STATUS: CHAYITO REQ #: [id number] ANTHONY: 10/22/23 10:[address]: Sabino Burns DEPT: IMMUNOHISTOCHEMISTRY RECD BY: Nam Brito ENTERED: 10/22/23 14:15 SP TYPE: IMMUNO OTHR DR: Dr. Alyssia Epperson DO Tissues: B - Gastric mucous membrane Procedures: H Pylori (initial) PHYSICIAN & INSTITUTION [place] [address] SPECIMEN INFORMATION: Tissue Source: B- Gastric antrum biopsy Clinical Info: Positive colorectal cancer screening using Cologuard test Specimen Number: [id number] CPT code: 91784 METHODOLOGY: Deparaffinized sections of prefer/formalin-fixed tissue or PAP/DQ stained slides are incubated with monoclonal/polyclonal antibodies/oligonucleotide probes. Localization is made via biotin free immunoperoxidase method. Appropriate controls are performed and reacted as expected. Results on target cell population are indicated in the following table: RESULTS: ANTIBODY / CLONE RESULT Block B H Pylori (polyclonal) negative These tests were developed and their performance characteristics determined by [facility]. They may not have been cleared or approved by the U.S. Food and Drug Administration. The FDA has determined that such clearance or approval is not necessary. The above immunohistochemical/dualISH markers are ordered and reviewed by the Pathologist. INTERPRETATION: B. Gastric antrum, biopsy: Negative for Helicobacter pylori organisms. MEKHI/ 10/23/2023
--- NOTE | 2023-10-22 10:00 | COLBX_PTH ---
PATIENT: ZHANE JEAN LOC: EN U#:[id number] AGE/SX: 68/M ROOM: RE10/22/[address]: Dr. Sabino Burns MD : 1955 BED: DIS: 10/22/2023 SPEC #: [id number] RECD: 10/22/23 12:46 STATUS: CHAYITO CARDONAHerminia #: [id number] ANTHONY: 10/22/23 10:[address]: Sabino Burns DEPT: SURGICAL PATHOLOGY RECD BY: Kristi Leon ENTERED: 10/22/23 13:22 SP TYPE: COLON BX OTHR DR: Dr. Alyssia Epperson DO Tissues: A - Duodenum, NOS B - Gastric mucous membrane C - Gastric mucous membrane D - COLON BIOPSY E - Esophagus, NOS F - Descending colon G - Descending colon Procedures: Special Stain Group I Surgery Specimen Level IV Alcian Blue/PAS (control) HEADER OPERATION: Colonoscopy with biopsies, EGD PRE-OP DIAGNOSIS: Positive colorectal cancer screening using Cologuard test TISSUE SUBMITTED: A- Duodenum biopsy, B- Antrum biopsy, C- Gastric body biopsy, D- Fundic polyp biopsy, E- Distal esophagus biopsy, F- Descending colon biopsy, G- Distal descending colon biopsy MICROSCOPIC DIAGNOSIS A. Duodenum, biopsy: Mild non-specific chronic inflammation. B. Gastric antrum, biopsy: Chronic gastritis. C. Gastric body, biopsy: Mild chronic inflammation. D. Gastric fundis, biopsy: Focal changes consistent with fundic gland polyp. Chronic inflammation. E. Distal esophagus, biopsy: Fragments of benign squamous mucosa. No evidence of goblet cell metaplasia. See comment. F. Descending colon, biopsy: Tubular adenoma. G. Distal descending colon, biopsy: Fragments of tubular adenoma. AM/ 10/23/2023 COMMENT A. The results of immunohistochemistry for Helicobacter pylori will be reported separately ([id number]). E. Alcian blue/PAS stain with matched control supports the above diagnosis. MICROSCOPIC DESCRIPTION Slides are reviewed. GROSS DESCRIPTION A. Received in fixative is one container labeled with the patient's name and designated Duodenum biopsy. The specimen consists of one irregular fragment of light peck soft tissue that measures 0.3 x 0.3 x 0.1 cm. The specimen is totally submitted in one cassette. B. Received in fixative is one container labeled with the patient's name and designated Antrum biopsy. The specimen consists of one irregular fragment of light peck soft tissue that measures 0.6 x 0.2 x 0.1 cm. The specimen is totally submitted in one cassette. C. Received in fixative is one container labeled with the patient's name and designated Gastric body biopsy. The specimen consists of one irregular fragment of light peck soft tissue that measures 0.5 x 0.5 x 0.1 cm. The specimen is totally submitted in one cassette. D. Received in fixative is one container labeled with the patient's name and designated Fundic polyp biopsy. The specimen consists of one irregular fragment of light peck soft tissue that measures 0.3 x 0.3 x 0.1 cm. The specimen is totally submitted in one cassette. E. Received in fixative is one container labeled with the patient's name and designated Distal esophagus. The specimen consists of one irregular fragment of light peck soft tissue that measures 0.6 x 0.2 x 0.1 cm. The specimen is totally submitted in one cassette. F. Received in fixative is one container labeled with the patient's name and designated Descending colon biopsy. The specimen consists of one irregular fragment of light peck soft tissue that measures 0.5 x 0.3 x 0.1 cm. The specimen is totally submitted in one cassette. G. Received in fixative is one container labeled with the patient's name and designated Distal descending colon. The specimen consists of two irregular fragments of light peck soft tissue that in aggregate measure 0.6 x 0.6 x 0.1 cm. The specimen is totally submitted in one cassette. MEKHI/ 10/22/2023 TC:3 CPT:48821,21426
--- NOTE | 2023-10-22 11:30 | OP.CCLET_ITS ---
10/22/2023 Alyssia Epperson [address] [facility] [place] [address] Re : Upper GI endoscopy procedure for Kamaljit Díaz Dear Dr. Epperson This procedure was performed on Sunday, October 22, 2023. My impressions and recommendations are as follows: Impressions : - Normal esophagus. - Z-line regular, 41 cm from the incisors. Biopsied. - Erythematous mucosa in the stomach. Biopsied. - Gastritis. Biopsied. - Erythematous mucosa in the gastric body. Biopsied. - A few gastric polyps. Resected and retrieved. - Erythematous duodenopathy. Biopsied. Recommendations : - Discharge patient to home. - Resume previous diet. - Continue present medications. - Telephone my office for pathology results in 1 week. Gastritis could be etiologic to a positive Cologuard test. Patient is already on PPI omeprazole therapy. Will await pathology. My findings are described in the full procedure note, which is enclosed. If I can be of further assistance, please feel free to contact me at Doctor phone number(s): Work: . Sincerely, Sabino Burns MD 10/22/2023 11:30:00 AM This report has been signed electronically.
--- NOTE | 2023-10-22 11:30 | OP.EGD_ITS ---
Patient Name: Kamaljit Díaz Procedure Date: 10/22/2023 10:23 AM Date of : 1955 Age: 68 Procedure: Upper GI endoscopy Indications: Cologuard positive Providers: Sabino Burns MD Referring MD: Alyssia Epperson Medicines: See the Anesthesia note for documentation of the administered medications Complications: No immediate complications. Procedure: Pre-Anesthesia Assessment: - Prior to the procedure, a History and Physical was performed, and patient medications and allergies were reviewed. The patient's tolerance of previous anesthesia was also reviewed. The risks and benefits of the procedure and the sedation options and risks were discussed with the patient. All questions were answered, and informed consent was obtained. Prior Anticoagulants: The patient has taken Plavix (clopidogrel), last dose was 5 days prior to procedure. ASA Grade Assessment: II - A patient with mild systemic disease. After reviewing the risks and benefits, the patient was deemed in satisfactory condition to undergo the procedure. After obtaining informed consent, the endoscope was passed under direct vision. Throughout the procedure, the patient's blood pressure, pulse, and oxygen saturations were monitored continuously. The pediatric colonoscope was introduced through the mouth, and advanced to the second part of duodenum. The upper GI endoscopy was accomplished without difficulty. The patient tolerated the procedure well. Scope In: 10:31:21 AM Scope Out: 10:38:34 AM Total Procedure Duration Time 0 hours 7 minutes 13 seconds Findings: The examined esophagus was normal. The Z-line was regular and was found 41 cm from the incisors. Biopsies were taken with a cold forceps for histology. Diffuse moderately erythematous mucosa with stigmata of recent bleeding was found in the entire examined stomach. Biopsies were taken with a cold forceps for histology. Diffuse moderate inflammation was found in the gastric antrum. Biopsies were taken with a cold forceps for histology. Diffuse moderately erythematous mucosa with bleeding was found in the gastric body. Biopsies were taken with a cold forceps for histology. A few sessile polyps with no bleeding and no stigmata of recent bleeding were found in the gastric fundus. The polyp was removed with a cold biopsy forceps. Resection and retrieval were complete. Diffuse mildly erythematous mucosa without active bleeding and with no stigmata of bleeding was found in the duodenal bulb. Biopsies were taken with a cold forceps for histology. Impression: - Normal esophagus. - Z-line regular, 41 cm from the incisors. Biopsied. - Erythematous mucosa in the stomach. Biopsied. - Gastritis. Biopsied. - Erythematous mucosa in the gastric body. Biopsied. - A few gastric polyps. Resected and retrieved. - Erythematous duodenopathy. Biopsied. Recommendation: - Discharge patient to home. - Resume previous diet. - Continue present medications. - Telephone my office for pathology results in 1 week. Gastritis could be etiologic to a positive Cologuard test. Patient is already on PPI omeprazole therapy. Will await pathology. Procedure Code(s): --- Professional --- 66435, Esophagogastroduodenoscopy, flexible, transoral; with biopsy, single or multiple Diagnosis Code(s): --- Professional --- K31.89, Other diseases of stomach and duodenum K29.70, Gastritis, unspecified, without bleeding K31.7, Polyp of stomach and duodenum CPT copyright 2021 [employer]. All rights reserved. The codes documented in this report are preliminary and upon gas regulator repairer review may be revised to meet current compliance requirements. Sabino Bruns MD 10/22/2023 11:30:00 AM This report has been signed electronically. Number of Addenda: 0 Note Initiated On: 10/22/2023 10:23 AM
--- NOTE | 2023-10-22 11:34 | OP.CCLET_ITS ---
10/22/2023 Alyssia Epperson [address] [facility] [place] [address] Re : Colonoscopy procedure for Kamaljit Díaz Dear Dr. Epperson This procedure was performed on Sunday, October 22, 2023. My impressions and recommendations are as follows: Impressions : - Preparation of the colon was fair. - Hemorrhoids found on perianal exam. - Diverticulosis in the sigmoid colon and in the descending colon. - One 6 mm polyp in the proximal descending colon, removed with a cold biopsy forceps. Resected and retrieved. - One 6 mm polyp in the distal descending colon, removed with a cold biopsy forceps. Resected and retrieved. Recommendations : - Await pathology results. - Repeat colonoscopy in 5 years for surveillance. - Telephone my office for pathology results in 1 week. Very severe sigmoid and descending diverticular disease with great difficulty and transversing. Small polyps likely not the source of the Cologuard positive. Will await pathology - Continue present medications. My findings are described in the full procedure note, which is enclosed. If I can be of further assistance, please feel free to contact me at Doctor phone number(s): Work: . Sincerely, Sabino Burns MD 10/22/2023 11:34:11 AM This report has been signed electronically.
--- NOTE | 2023-10-22 11:34 | OP.COLON_ITS ---
Patient Name: Kamaljit Díaz Procedure Date: 10/22/2023 10:38 AM Date of : 1955 Age: 68 Procedure: Colonoscopy Indications: Cologuard positive Providers: Sabino Burns MD Referring MD: Alyssia Epperson Medicines: See the Anesthesia note for documentation of the administered medications Patient Profile: Last Colonoscopy: 2012. Complications: No immediate complications. Procedure: Pre-Anesthesia Assessment: - Prior to the procedure, a History and Physical was performed, and patient medications and allergies were reviewed. The patient's tolerance of previous anesthesia was also reviewed. The risks and benefits of the procedure and the sedation options and risks were discussed with the patient. All questions were answered, and informed consent was obtained. Prior Anticoagulants: The patient has taken Plavix (clopidogrel), last dose was 5 days prior to procedure. ASA Grade Assessment: II - A patient with mild systemic disease. After reviewing the risks and benefits, the patient was deemed in satisfactory condition to undergo the procedure. After I obtained informed consent, the scope was passed under direct vision. Throughout the procedure, the patient's blood pressure, pulse, and oxygen saturations were monitored continuously. The pediatric colonoscope was introduced through the anus and advanced to the cecum, identified by appendiceal orifice and ileocecal valve. The colonoscopy was extremely difficult due to multiple diverticula in the colon. The patient tolerated the procedure well. The quality of the bowel preparation was fair. The ileocecal valve and the appendiceal orifice were photographed. Scope In: 10:38:23 AM Scope Withdrawal Time 0 hours 9 minutes 12 seconds Scope Out: 11:21:12 AM Total Procedure Duration Time 0 hours 42 minutes 49 seconds Findings: Hemorrhoids were found on perianal exam. The digital rectal exam was normal. Pertinent negatives include normal prostate (size, shape, and consistency). Multiple small and large-mouthed diverticula were found in the sigmoid colon and descending colon. A 6 mm polyp was found in the proximal descending colon. The polyp was sessile. The polyp was removed with a cold biopsy forceps. Resection and retrieval were complete. A 6 mm polyp was found in the distal descending colon. The polyp was sessile. The polyp was removed with a cold biopsy forceps. Resection and retrieval were complete. Impression: - Preparation of the colon was fair. - Hemorrhoids found on perianal exam. - Diverticulosis in the sigmoid colon and in the descending colon. - One 6 mm polyp in the proximal descending colon, removed with a cold biopsy forceps. Resected and retrieved. - One 6 mm polyp in the distal descending colon, removed with a cold biopsy forceps. Resected and retrieved. Recommendation: - Await pathology results. - Repeat colonoscopy in 5 years for surveillance. - Telephone my office for pathology results in 1 week. Very severe sigmoid and descending diverticular disease with great difficulty and transversing. Small polyps likely not the source of the Cologuard positive. Will await pathology - Continue present medications. Procedure Code(s): --- Professional --- 65344, Colonoscopy, flexible; with biopsy, single or multiple Diagnosis Code(s): --- Professional --- K64.9, Unspecified hemorrhoids D12.4, Benign neoplasm of descending colon K57.30, Diverticulosis of large intestine without perforation or abscess without bleeding CPT copyright 2021 [employer]. All rights reserved. The codes documented in this report are preliminary and upon teradata developer review may be revised to meet current compliance requirements. Sabino Burns MD 10/22/2023 11:34:11 AM This report has been signed electronically. Number of Addenda: 0 Note Initiated On: 10/22/2023 10:38 AM
== END 2023-10-22 12:25 | disposition home or self-care (01) ==
LOC: EN 08:56 → AC 08:58
PROVIDERS: PCP Family Medicine; Referring Provider Family Medicine; Visit Provider Surgery
PROC: 0DJD8ZZ Inspection of Lower Intestinal Tract, Via Natural or Artificial Opening Endoscopic (ICD-10-PCS; CPT 45378; principal; 2023-10-22 09:55)
DX: R19.5 Other fecal abnormalities (principal); I11.0 Hypertensive heart disease with heart failure; I50.32 Chronic diastolic (congestive) heart failure; F31.9 Bipolar disorder, unspecified; J44.9 Chronic obstructive pulmonary disease, unspecified; K64.9 Unspecified hemorrhoids; K63.5 Polyp of colon; I25.10 Atherosclerotic heart disease of native coronary artery without angina pectoris; E78.00 Pure hypercholesterolemia, unspecified; K57.30 Diverticulosis of large intestine without perforation or abscess without bleeding; K31.7 Polyp of stomach and duodenum; Z86.73 Personal history of transient ischemic attack (TIA), and cerebral infarction without residual deficits; K21.9 Gastro-esophageal reflux disease without esophagitis; Z79.899 Other long term (current) drug therapy; Z79.02 Long term (current) use of antithrombotics/antiplatelets; Z90.49 Acquired absence of other specified parts of digestive tract; Z95.5 Presence of coronary angioplasty implant and graft; K31.89 Other diseases of stomach and duodenum; K29.50 Unspecified chronic gastritis without bleeding
CPT/HCPCS: 45380; 43239; 36415; 82962; 85025; 88305; 88312; 88342; J7120; J2405

== ENCOUNTER 2024-04-01 20:58 | Emergency (ER) | payer MEDICARE, OTHER, SELFPAY ==
[2024-04-01 21:00] VITALS: BP 96/61; PULSE 74; RESP 16; TEMP 37.7; O2SAT 98; BMI 29.9
[2024-04-01 23:02] VITALS: BP 106/66; PULSE 60; RESP 17; TEMP 36.6; O2SAT 98
[2024-04-01] MEDS: Lidocaine 2% /Epi 1:100 (20ml) 20 ML VIAL INFILT (23:06)
[2024-04-01] MEDS: Smz/Tmp Ds Tablet 1 TABLET PO (23:06)
[2024-04-01] MEDS: Ondansetron ODT 4 MG Tablet PO (23:06)
[2024-04-01] MEDS: Morphine 4 MG/ML Syringe 6 MG IM (23:06)
[2024-04-02] MEDS: oxyCODONE 5 MG Tablet PO (00:19)
[2024-04-02 00:21] VITALS: BP 98/62; PULSE 54; RESP 16; TEMP 36.1; O2SAT 98
== END 2024-04-02 00:22 | disposition home or self-care (01) ==
PROVIDERS: Emergency Provider Emergency Medicine; PCP Family Medicine; Visit Provider Emergency Medicine
DX: K04.7 Periapical abscess without sinus (principal); I11.0 Hypertensive heart disease with heart failure; I50.32 Chronic diastolic (congestive) heart failure; F31.9 Bipolar disorder, unspecified; J44.9 Chronic obstructive pulmonary disease, unspecified; E11.638 Type 2 diabetes mellitus with other oral complications; I25.10 Atherosclerotic heart disease of native coronary artery without angina pectoris; E78.00 Pure hypercholesterolemia, unspecified; K21.9 Gastro-esophageal reflux disease without esophagitis; K02.9 Dental caries, unspecified
CPT/HCPCS: 41800; 96372; 99284

== ENCOUNTER → 2024-04-28 | Outpatient (CLI) | payer MEDICARE, OTHER, SELFPAY ==
[2024-04-28 15:31] LABS: Absolute Lymphocyte Count 2.35 X10^3/uL (0.83-4.51); Absolute Neutrophil Count 4.9 X10^3/uL (2.0-7.7); Basophil# 0.05 X10^3/uL; Basophil% 0.6 % (0-1); Eosinophil# 0.17 X10^3/uL; Eosinophils% 2.1 % (0-5); Hematocrit 43.4 % (40-54); Hemoglobin 14.3 g/dL (13.0-16.5); Lymphocyte # 2.35 X10^3/ul (0.83-4.51); Lymphocyte % 29.4 % (19-41); Mean Corp Hgb Conc 32.9 g/dL (32-36); Mean Corpuscular Hgb 30.1 pg (27.0-32.0); Mean Corpuscular Volume 91.4 fL (80-94); Mean Platelet Vol. 10.8 fl (6.2-12.0); Monocyte# 0.52 X10^3/uL; Monocyte% 6.5 % (0-10); NRBC Flagged by Analyzer 0 % (0-5); Neutrophil # 4.89 X10^3/uL (2.7-7.7); Neutrophil % 61.1 % (47-70); Platelet Count 183 K/mm3 (150-450); RBC Distribution Width CV 12.9 % (11.6-14.6); Red Blood Count 4.75 M/mm3 (4.6-6.2)
[2024-04-28 15:46] LABS: Valproic Acid (Depakene) Level 7 ug/mL (50-100)
[2024-04-28 15:48] LABS: AST(SGOT) 84 U/L (15-37); Alanine Aminotransfer ALT/SGPT 62 U/L (16-61); Albumin, Serum 3.5 g/dL (3.2-5.0); Alkaline Phosphatase 143 U/L (45-117); Anion Gap 5 (5-15); BUN 16 mg/dL (7-18); BUN/Creat Ratio 20.6 RATIO (10-20); Chloride 110 mmol/L (98-107); Cholesterol 122 mg/dL (200); Creatinine, Serum 0.78 mg/dL (0.70-1.30); EST Glomerular Filtration Rate 106 mL/min (>60); Est Glom Filt Rate - Afr Amer 128 mL/min (>60); Globulin 3.5 g/dL (2.2-4.2); Glucose 119 mg/dL (74-106); High Density Lipoprotein 52 mg/dL; Potassium 3.9 mmol/L (3.5-5.1); Sodium Level 141 mmol/L (136-145); Triglycerides 104 mg/dL; Very Low Density Lipoprotein 21 mg/dL (5-40)
[2024-04-28 15:57] LABS: Hemoglobin A1c 5.2 % (3.8-5.6)
[2024-04-28 16:05] LABS: Microalbumin,Random Urine 10.9 mg/L (NO RANGE EST.); Microalbumin:Creatinine Ratio 8.8 mg/g CRE (<30 mg/g CRE)
[2024-05-01 14:09] LABS: Topiramate 6.9 ug/mL (2.0-25.0)
== END | disposition home or self-care (01) ==
PROVIDERS: PCP Family Medicine; Referring Provider Family Medicine; Visit Provider Family Medicine
DX: I10 Essential (primary) hypertension (principal); G40.909 Epilepsy, unspecified, not intractable, without status epilepticus; E11.9 Type 2 diabetes mellitus without complications; Z51.81 Encounter for therapeutic drug level monitoring
CPT/HCPCS: 36415; 80053; 80061; 80164; 80201; 82043; 82570; 83036; 85025

== ENCOUNTER 2024-05-20 16:19 | Emergency (ER) | payer MEDICARE, OTHER, SELFPAY ==
[2024-05-20 16:20] VITALS: BP 144/79; PULSE 88; RESP 16; TEMP 36.4; O2SAT 97
--- NOTE | 2024-05-20 16:47 | EX.ED.DYSGE1 ---
HPI History of Present Illness Chief Complaint: Cold Sx Informant: patient and spouse/S.O. Narrative Narrative: 4-day history mild productive's cough no dyspnea. Reports chills and myalgias. No vomiting diarrhea. No urinary symptoms. Denies any asthma.. History of COPD. No home oxygen. States occasional wheezing at home. Spouse diagnosed with influenza 2 days ago. Her symptoms started a day after his. [facility] Medical History Wears glasses Depression Anxiety High cholesterol Migraine headache Dietary restriction Non-smoker Seizures Insomnia due to mental condition Unspecified psychosis Abscess of left elbow Chronic diastolic heart failure Pure hypercholesterolemia Essential hypertension Degenerative disc disease GERD (gastroesophageal reflux disease) COPD (chronic obstructive pulmonary disease) Atherosclerotic heart disease of [place] coronary artery without angina pectoris Bipolar 1 disorder CVA (cerebral vascular accident) (~1995) Hypokalemia Home Medications ?Medication ?Instructions ?Recorded ?Last Taken ?Type multivitamin,[id number] 27 1 tab PO DAILY 08/15/15 Unknown History mg-0.4 mg tablet omeprazole 20 mg capsule,delayed 20 mg PO DAILY 08/15/15 10/22/23 07:00 History release folic acid 1 mg tablet 1 mg PO QDAY 06/24/17 Unknown History nitroglycerin 0.4 mg sublingual 0.4 mg sublingual Q5M PRN Chest 05/23/21 Unknown Rx tablet Pain #25 tabs pravastatin 20 mg tablet 20 mg PO QHS #30 tabs 03/08/22 Unknown Rx lacosamide 50 mg tablet (Vimpat) 50 mg PO BID 05/15/22 10/22/23 07:00 History topiramate 100 mg tablet 150 mg (1.5 x 100 mg) PO QHS #45 06/04/22 Unknown Rx tabs hydromorphone 4 mg tablet 4 mg PO Q8H PRN pain 11/21/22 10/22/23 07:00 History ascorbic acid (vitamin C) 500 mg 500 mg PO DAILY 04/08/23 Unknown History tablet cholecalciferol (vitamin D3) 25 25 mcg PO DAILY 04/08/23 Unknown History mcg (1,000 unit) tablet hydrochlorothiazide 12.5 mg tablet 12.5 mg PO DAILY 04/08/23 Unknown History oxybutynin chloride 15 mg 15 mg PO DAILY 04/08/23 Unknown History tablet,extended release 24 hr potassium chloride 20 mEq 20 meq PO BID 04/08/23 Unknown History tablet,extended release zinc gluconate 50 mg tablet 50 mg PO DAILY 04/08/23 Unknown History lisinopril 20 mg tablet 20 mg PO DAILY 10/07/23 10/22/23 07:00 History divalproex 125 mg tablet,delayed 125 mg PO TID #90 tabs 10/17/23 10/22/23 07:00 Rx release (Depakote) clopidogrel 75 mg tablet 75 mg PO DAILY #90 tabs 10/28/23 Unknown Rx metoprolol succinate 50 mg See Rx Instructions .Route 02/19/24 Unknown Rx tablet,extended release 24 hr .COMPLEX #90 tabs ramelteon 8 mg tablet 8 mg PO QHS #30 tabs 04/21/24 Unknown Rx lorazepam 1 mg tablet 1 mg PO BID PRN Anxiety #60 tabs 04/27/24 Unknown Rx risperidone 1 mg tablet 2.5 mg (2.5 x 1 mg) PO QHS 30 days 04/27/24 Unknown Rx #75 tabs suvorexant 20 mg tablet 20 mg PO QHS #30 tabs 04/30/24 Unknown Rx benzonatate 100 mg capsule 100 mg PO TID PRN PRN Cough #20 05/20/24 Unknown Rx CAPSULES Allergy/AdvReac Type Severity Reaction Status Date / Time clindamycin AdvReac Unknown Unknown Verified 05/20/24 16:21 doxepin AdvReac Nausea/Vom/ Verified 05/20/24 16:21 Diarrhea guanfacine AdvReac Nausea/Vom/ Verified 05/20/24 16:21 Diarrhea Penicillins AdvReac Hives Verified 05/20/24 16:21 Family History Father Heart disease Surgical History S/P CABG x 3 History of toe surgery History of skin graft Status post debridement (~1993) History of hernia repair History of cholecystectomy Presence of stent in coronary artery (~08/11/02) Aortocoronary bypass status (~1998) Social History Smoking Status: Never smoker alcohol intake: never substance use type: does not use caffeine: Yes Type: carbonated beverages Number of servings: 2 ROS ROS ED Constitutional Constitutional ED: Reports chills; Denies fever(s) or sweats ENT ENT ED: Denies sore throat Cardiovascular Cardiovascular: Denies chest pain, leg edema, palpitations or racing heartbeat Respiratory/Chest Respiratory/Chest: Reports cough; Denies dyspnea or dyspnea on exertion Gastrointestinal Gastrointestinal: Denies abdominal pain, diarrhea, nausea or vomiting Genitourinary Genitourinary ED: Denies dysuria, hematuria or urinary frequency Musculoskeletal Musculoskeletal: Reports myalgias; Denies back pain, extremity pain or neck pain Integumentary Denies rash or wounds Neurologic Neurologic: Denies headache(s), paresthesias or weakness EXAM Physical Exam Const Vital Signs: 05/20/24 16:20 05/20/24 16:28 05/20/24 18:47 Temperature 97.5 F L 97.5 F L Temperature Source Temporal Pulse Rate 88 80 Respiratory Rate 16 16 Respiratory Effort Short of Breath Respiratory Pattern Normal Blood Pressure 144/79 H 140/80 H Blood Pressure Mean 100 100 Pulse Ox 97 98 Oxygen Delivery Method Room Air Positive well nourished and well developed General Appearance ED: well developed and NAD HEENT Reports moist mucous membranes normocephalic and atraumatic Eyes General Eye ED: Yes normal appearance of both eyes Neck full ROM Chest Wall Chest: Negative for tenderness Resp normal respiratory effort and normal air movement Effort and Inspection: symmetric chest movement; Negative for respiratory distress Cardio regular rate, regular rhythm and no murmurs Peripheral Pulses: pulses 2+ throughout GI normal to inspection, nondistended, normoactive bowel sounds and non-tender Palpation: Negative for guarding or rebound tenderness present Extremity normal to inspection General Extremety ED: Negative for edema or tenderness General Extremity: Negative for edema Neuro oriented x3 and no sensory deficits noted Sensorium / Orientation: awake and alert Skin no rashes or lesions noted and no wounds MDM MDM MDM Narrative Medical decision making narrative: Interventions / MDM: Differential diagnosis: Influenza, viral syndrome Diagnosis considered but do not suspect: Pneumonia however chest x-ray negative. No acute process also read by radiology. My EKG interpretation: N/A Imaging independently reviewed and interpreted by myself: Chest x-ray 2 views: External documents reviewed: N/A Test considered but not ordered:N/A ED course: Vital signs stable 97% room air. Flu exposure with spouse. Will check nasal swab. Chest x-ray ordered for further evaluation. Chest chest x-ray negative. Flu a positive. Discussed findings with patient and spouse. Discussed before symptoms outside the window for Tamiflu. Discussed continued symptomatic treatment at home. Outpatient follow-up. All questions were answered. Re-evaluation: stable Disposition discussed with patient/family/significant other: Patient and spouse Case discussed with consulting clinician: N/A This note was generated with [employer] dictation software. It may contain incorrect words, spelling, and punctuation that were not noted in checking the note before signing. Radiography Diagnostic Testing: Clinical Impression(s) from Imaging Studies Chest X-Ray 05/20/24 17:10 IMPRESSION: No acute radiographic abnormalities. Electronically Signed: Nilesh Freeman MD at 17:20 EST , Discharge Plan Triage Chief Complaint: Cold Sx ED Provider: Bao Taylor Dx/Rx/DC Orders Clinical Impression: Influenza A, Cough Instructions: ED Influenza (Adult) Prescriptions: New benzonatate 100 mg capsule 100 mg PO TID PRN PRN (Reason: Cough) Qty: 20 0RF No Action folic acid 1 mg tablet 1 mg PO QDAY hydrochlorothiazide 12.5 mg tablet 12.5 mg PO DAILY Patient Comments: TAKE 1 TABLET BY MOUTH EVERY DAY oxybutynin chloride 15 mg tablet extended release 24hr 15 mg PO DAILY Patient Comments: TAKE 1 TABLET BY MOUTH EVERY DAY potassium chloride 20 mEq tablet extended release 20 meq PO BID Patient Comments: TAKE 1 TABLET BY MOUTH TWICE DAILY WITH FOOD ascorbic acid (vitamin C) 500 mg tablet 500 mg PO DAILY cholecalciferol (vitamin D3) 25 mcg (1,000 unit) tablet 25 mcg PO DAILY zinc gluconate 50 mg tablet 50 mg PO DAILY lacosamide [Vimpat] 50 mg tablet 50 mg PO BID topiramate 100 mg tablet 150 mg PO QHS Qty: 45 2RF hydromorphone 4 mg tablet 4 mg PO Q8H PRN (Reason: pain) Patient Comments: TAKE 1 TABLET BY MOUTH EVERY 8 HOURS NEEDED FOR 30 DAYS lisinopril 20 mg tablet 20 mg PO DAILY divalproex [Depakote] 125 mg tablet,delayed release (DR/EC) 125 mg PO TID Qty: 90 2RF lorazepam 1 mg tablet 1 mg PO BID PRN (Reason: Anxiety) Qty: 60 2RF risperidone 1 mg tablet 2.5 mg PO QHS 30 Days Qty: 75 1RF omeprazole 20 MG capsule 20 mg PO DAILY multivitamin,[id number]-[id number] 1 TABLET tablet 1 tab PO DAILY nitroglycerin 0.4 mg tablet, sublingual 0.4 mg SUBLINGUAL Q5M PRN (Reason: Chest Pain) Qty: 25 3RF pravastatin 20 mg tablet 20 mg PO QHS Qty: 30 12RF clopidogrel 75 mg tablet 75 mg PO DAILY Qty: 90 3RF metoprolol succinate 50 mg tablet extended release 24 hr See Rx Instructions .ROUTE .COMPLEX Qty: 90 3RF Dose Instruction: TAKE 1 TABLET BY MOUTH EVERY DAY Rx Instructions: TAKE 1 TABLET BY MOUTH EVERY DAY ramelteon 8 mg tablet 8 mg PO QHS Qty: 30 2RF suvorexant 20 mg tablet 20 mg PO QHS Qty: 30 2RF Primary Care Provider: Alyssia Epperson Referrals: Alyssia Epperson DO [Primary Care Provider] - 1 Week Activity Restrictions/Additional Instructions: Flu A positive. COVID-negative. RSV negative. Chest x-ray negative. Continue oral fluids for hydration. Use cough suppressants as needed. Outside the window for treatment with Tamiflu. Print Language: Latvian Disposition Disposition: Home, Self Care Discharge Date/Time: 05/20/24 18:48
--- NOTE | 2024-05-20 17:10 | RAD_ITS ---
INDICATION: cough EXAMINATION/TECHNIQUE: X-RAY - XR Chest 2 Views COMPARISON: 04/02/2018. FINDINGS: The lungs are clear. Sternal cerclage wires and vascular clips are present from a prior sternotomy and coronary artery bypass graft procedure (CABG). Tortuous and calcified thoracic aorta. No pleural effusion or pneumothorax. Degenerative changes of the thoracic spine. RAD/Chest PA and Lateral IMPRESSION: No acute radiographic abnormalities. Electronically Signed: Nilesh Freeman MD at 17:20 EST ,
[2024-05-20 18:47] VITALS: BP 140/80; PULSE 80; RESP 16; TEMP 36.4; O2SAT 98
== END 2024-05-20 18:48 | disposition home or self-care (01) ==
PROVIDERS: Emergency Provider Emergency Medicine; PCP Family Medicine; Visit Provider Emergency Medicine
DX: J10.1 Influenza due to other identified influenza virus with other respiratory manifestations (principal); I11.0 Hypertensive heart disease with heart failure; I50.32 Chronic diastolic (congestive) heart failure; J44.9 Chronic obstructive pulmonary disease, unspecified; E78.00 Pure hypercholesterolemia, unspecified; I25.10 Atherosclerotic heart disease of native coronary artery without angina pectoris; Z20.828 Contact with and (suspected) exposure to other viral communicable diseases; R05.9 Cough, unspecified; K21.9 Gastro-esophageal reflux disease without esophagitis
CPT/HCPCS: 71046; 87631; 99282

== ENCOUNTER → 2025-04-15 | Outpatient (CLI) | payer MEDICARE, OTHER, SELFPAY ==
--- NOTE | 2025-04-15 11:53 | LES_PTH ---
PATIENT: ZHANE JEAN LOC: [facility] U#:[id number] AGE/SX: 70/M ROOM: RE04/15/[address]: Dr. Alyssia Epperosn DO : 1955 BED: DIS: 04/15/2025 SPEC #: [id number] RECD: 04/15/25 14:40 STATUS: CHAYITO HECTOR #: [id number] ANTHONY: 04/15/25 11:[address]: Alyssia Epperson DEPT: SURGICAL PATHOLOGY RECD BY: Nam Brito Tissues: A - Skin of forehead Procedures: Surgery Specimen Level IV HEADER OPERATION: Right forehead papule excisional biopsy PRE-OP DIAGNOSIS: Epidermal cyst vs neurofibroma TISSUE SUBMITTED: A- Right forehead MICROSCOPIC DIAGNOSIS Skin, right forehead, excision: Diagnosis deferred pending dermatopathological consultation (See Comment) COMMENT This case is being sent to the Dermatopathology Service at the [facility] of the [facility], and their results will be reported separately. MICROSCOPIC DESCRIPTION Slides are reviewed. GROSS DESCRIPTION A. Received in formalin labeled the patient's name and date of is a 1.0 x 0.6 cm peck-pink, somewhat firm skin ellipse devoid of orientation and excised to depth ranging from <0.1 cm to 0.3 cm. The resection margin is inked black. Centrally, in an area measuring 0.4 x 0.3 cm the epidermis is raised and firm with a palpable wall, presumed underlying lesion. Sectioning reveals focally fibrotic cut surfaces underlying the raised epidermal surface. Entirely submitted in 1 cassette. IA 04/15/2025 CPT:[id number] ADDENDUM ADDENDUM ADDENDUM ADDENDUM ADDENDUM ADDENDUM ADDENDUM ADDENDUM ADDENDUM ADDENDUM ADDENDUM ADDENDUM 04/28/2025 09:12 ADDENDUM 04/28/2025 09:12 ADDENDUM 04/28/2025 09:12 ADDENDUM 04/28/2025 09:12 ADDENDUM 04/28/2025 09:12 This addendum is added to incorporate an outside pathology consultation report. The case was examined at [facility] by Dr. Lopez (#[id number]) and the following diagnosis was rendered. A. 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 Diagnosis Comment: Complete re-excision of this lesion is recommended. Please see complete above mentioned consultation report in EMR
== END | disposition home or self-care (01) ==
LOC: LABSPEC 12:01
PROVIDERS: PCP Family Medicine; Visit Provider Family Medicine
DX: C44.309 Unspecified malignant neoplasm of skin of other parts of face (principal)
CPT/HCPCS: 88305

== ENCOUNTER → 2025-04-21 | Outpatient (CLI) | payer MEDICARE, OTHER, SELFPAY ==
[2025-04-21 12:27] LABS: Hematocrit 42.8 % (40-54); Hemoglobin 14.5 g/dL (13.0-16.5); Immature Granulocytes Count 0.010 X10^3/uL (0.0-0.0); Mean Corp Hgb Conc 33.9 g/dL (32-36); Mean Corpuscular Volume 91.1 fL (80-94); Mean Platelet Vol. 10.4 fl (6.2-12.0); NRBC Flagged by Analyzer 0 % (0-5); Platelet Count 210 K/mm3 (150-450); RBC Distribution Width CV 12.8 % (11.6-14.6); RBC Distribution Width SD 42.6 fl (35.1-43.9); Red Blood Count 4.70 M/mm3 (4.6-6.2); White Blood Count 7.5 K/mm3 (4.4-11.0)
[2025-04-21 12:59] LABS: AST(SGOT) 22 U/L (<=37); Alanine Aminotransfer ALT/SGPT 33 U/L (<=46); Albumin, Serum 4.1 g/dL (3.4-4.8); Alkaline Phosphatase 159 U/L (40-129); Anion Gap 13 (5-15); BUN 16 mg/dL (4-19); BUN/Creat Ratio 19.7 RATIO (10-20); Calcium,Total 9.4 mg/dL (7.6-11.0); Carbon Dioxide 22.6 mmol/L (21.0-32.0); Chloride 105 mmol/L (98-108); Cholesterol 116 mg/dL (<=200); Globulin 3.0 g/dL (2.2-4.2); Glucose 112 mg/dL (70-99); Low Density Lipoprotein Calc. 49 mg/dL; Potassium 4.1 mmol/L (3.3-5.1); Triglycerides 150 mg/dL; Very Low Density Lipoprotein 30 mg/dL (5-40); cholesterol:hdl ratio screen 2.80
[2025-04-21 13:07] LABS: Creatinine, Urine (random) 108.00 mg/dL (39.00-259.00); Microalbumin,Random Urine < 12.0 mg/L (<20 mg/L)
== END | disposition home or self-care (01) ==
LOC: BFHLAB 09:26
PROVIDERS: PCP Family Medicine; Visit Provider Family Medicine
DX: E11.9 Type 2 diabetes mellitus without complications (principal); G40.909 Epilepsy, unspecified, not intractable, without status epilepticus; I10 Essential (primary) hypertension; Z51.81 Encounter for therapeutic drug level monitoring
CPT/HCPCS: 36415; 80053; 80061; 80201; 82043; 82570; 85025